=== PATIENT | male | born 1950 | race Caucasian/White ===

== ENCOUNTER → 2016-11-22 | Outpatient (CLI) | payer MEDICARE ==
[~2016-11-22] MED LIST: ACHD5005 PO; ALPR-557 GT; AMLO5TAB2 GT; ASP81TEC PO; ATR20T PO; CIPR-225 PO; CLOP75TA PO; FLEC100T PO; FRSM40T PO; GLIM4TAB PO; GLMP2T PO; KETO10TA PO; LEVO75TA6 PO; LEVO88TA54 PO; LOSA100T16 PO; LOSA1TAB19 PO; MAGN250T7 PO; METO25TA PO; MTP25TSR PO; MULT-608 PO; NAPR-248 PO; OMEP40CA36 PO; ONDA4TAB8 PO; ORPH100T PO; PANT20TA2 PO; POTA20PA3 PO; POTA99TA7 PO; POTASSIUM GLUCONATE 595 MG PO; PRD20T PO; SAXA5TAB PO; SITA100T PO; SPIR50TA2 PO; SUCR1TAB23 PO; TAMS0.4C98 PO; TRM50T PO; [UNRECOGNIZED DRUG - OTHER]
[2016-11-22 11:10] LABS: ALBUMIN 3.7 GM/DL (3.2-4.5); ANION GAP 12 MMOL/L (5-14); BLOOD UREA NITROGEN 14 MG/DL (7-18); BUN/CREATININE RATIO 14 (0-20); CALCIUM 9.7 MG/DL (8.5-10.1); CARBON DIOXIDE 22 MMOL/L (21-32); CHLORIDE 103 MMOL/L (98-107); CREATININE SERUM 1.03 MG/DL (0.60-1.30); GFR ESTIMATED > 60; GLUCOSE 320 MG/DL (70-105); PHOSPHORUS 2.5 MG/DL (2.3-4.7); POTASSIUM 4.3 MMOL/L (3.6-5.0); SODIUM 137 MMOL/L (135-145)
[2016-11-22 11:13] LABS: HEMOLYSIS 0 (0-29); LIPEMIA 0 (0-49)
== END ==
LOC: LAB 10:34
PROVIDERS: ATTEND Internal Medicine Cardiovascular Disease
DX: I10 Essential (primary) hypertension (principal)
CPT/HCPCS: 36415; 80069

== ENCOUNTER → 2017-01-31 | Outpatient (CLI) | payer MEDICARE ==
[2017-01-31 09:45] LABS: BASOPHILS % (AUTO) 0 % (0-10); EOSINOPHILS # (AUTO) 0.4 10^3/uL (0.0-0.3); EOSINOPHILS % (AUTO) 6 % (0-10); LYMPHOCYTES % (AUTO) 13 % (12-44); MEAN CORPUSCULAR HEMOGLOBIN 29 PG (25-34); MEAN CORPUSCULAR HGB CONC 32 G/DL (32-36); MEAN CORPUSCULAR VOLUME 90 FL (80-99); MEAN PLATELET VOLUME 9.9 FL (7.4-10.4); MONOCYTES # (AUTO) 0.6 X 10^3 (0.0-1.0); MONOCYTES % (AUTO) 8 % (0-12); NEUTROPHILS # (AUTO) 5.6 X 10^3 (1.8-7.8); NEUTROPHILS % (AUTO) 73 % (42-75); PLATELET COUNT 162 10^3/uL (130-400); RED BLOOD COUNT 4.13 10^6/uL (4.35-5.85); RED CELL DISTRIBUTION WIDTH 13.9 % (10.0-14.5); WHITE BLOOD COUNT 7.7 10^3/uL (4.3-11.0)
== END ==
LOC: LAB 09:11
PROVIDERS: ATTEND Podiatrist Foot & Ankle Surgery
DX: E11.9 Type 2 diabetes mellitus without complications (principal)
CPT/HCPCS: 36415; 83036; 85025

== ENCOUNTER → 2017-01-31 | Outpatient (CLI) | payer MEDICARE ==
[2017-01-31 12:21] LABS: ALANINE AMINOTRANSFERASE 40 U/L (0-55); ALBUMIN 3.8 GM/DL (3.2-4.5); ANION GAP 12 MMOL/L (5-14); ASPARTATE AMINO TRANSFERASE 34 U/L (5-34); BILIRUBIN,TOTAL 0.5 MG/DL (0.1-1.0); BLOOD UREA NITROGEN 19 MG/DL (7-18); BUN/CREATININE RATIO 18; CALCIUM 9.7 MG/DL (8.5-10.1); CARBON DIOXIDE 23 MMOL/L (21-32); CHLORIDE 102 MMOL/L (98-107); CREATININE SERUM 1.08 MG/DL (0.60-1.30); GFR ESTIMATED > 60; GLUCOSE 353 MG/DL (70-105); POTASSIUM 4.1 MMOL/L (3.6-5.0); SODIUM 137 MMOL/L (135-145); TOTAL PROTEIN 7.8 GM/DL (6.4-8.2)
== END ==
LOC: LABNPT 11:59
PROVIDERS: ATTEND Family Medicine
DX: E11.65 Type 2 diabetes mellitus with hyperglycemia (principal); E78.2 Mixed hyperlipidemia; I10 Essential (primary) hypertension
CPT/HCPCS: 80053

== ENCOUNTER 2017-04-04 19:37 | Emergency (ER) | payer MEDICARE ==
[~2017-04-04] VITALS: Ht 172.7 cm; Wt 134.0 kg
--- OUTSIDE RECORDS SUMMARY | 2017-04-04 19:43 | XMS REPORT ---
Author Author CONNOR BARTHOLOMEW Organization [facility] Address [address] [place] [address] Care Team Providers Care Dynamic Balancer Name Role Phone CONNOR BARTHOLOMEW Unavailable PROBLEMS Unknown Problems ALLERGIES Substance Reaction Event Type Date Status SulfADIAZINE nausea Drug Allergy Jun, Active Codeine Sulfate nausea Drug Allergy Jun, Active SOCIAL HISTORY No smoking Hx information available PLAN OF CARE Activity Details Follow Up prn Reason: VITAL SIGNS Height 68 in 2016-06-17 Weight 300.6 lbs 2016-06-17 Temperature 98.3 degrees Fahrenheit 2016-06-17 Heart Rate 84 bpm 2016-06-17 Respiratory Rate 20 2016-06-17 BMI 45.70 kg/m2 2016-06-17 Blood pressure systolic 130 mmHg 2016-06-17 Blood pressure diastolic 78 mmHg 2016-06-17 MEDICATIONS Medication Instructions Dosage Frequency Start Date End Date Duration Status Spironolactone 50 MG Orally Once a day 1 tablet 24h Active Losartan Potassium-HCTZ 100-12.5 MG Orally Once a day 1 tablet 24h Active Glimepiride 4 MG Orally Once a day 1 tablet with breakfast or the first main meal of the day 24h Active Multivitamin Men - Active Furosemide 40 MG Orally Once a day 1 tablet 24h Active Baby Aspirin 81 MG Orally Once a day 1 tablet 24h Active Omeprazole 40 MG Orally Once a day 1 capsule 24h Active Lipitor 20 MG Orally Once a day 1 tablet 24h Active Flecainide Acetate 100 MG Active Levothyroxine Sodium 75 MCG Orally Once a day 1 tablet on an empty stomach in the morning 24h Active Azithromycin 250 MG Orally Once a day 2 tablets on the first day, then 1 tablet daily for 4 days 24h Jun, Jun, 5 day(s) Active PredniSONE 10 mg Orally Once a day 1 tablet 24h Jun, Jun, 05 days Active RESULTS No Results PROCEDURES Procedure Date Ordered Related Diagnosis Body Site [facility] VISIT NEW PATIENT Jun 17, 2016 Office Visit, New Pt., Level 3 Jun 17, 2016 IMMUNIZATIONS No Known Immunizations
--- OUTSIDE RECORDS SUMMARY | 2017-04-04 19:44 | XMS REPORT ---
Author Author DOMINICK ARREGUIN Organization [facility] Address [address] [place] [address] Care Team Providers Care Crewman Main Battle [employer] Name Role Phone DOMINICK ARREGUIN Unavailable PROBLEMS Unknown Problems ALLERGIES Substance Reaction Event Type Date Status SulfADIAZINE nausea Drug Allergy Jun, Active Codeine Sulfate nausea Drug Allergy Jun, Active SOCIAL HISTORY No smoking Hx information available PLAN OF CARE Activity Details Follow Up prn Reason: VITAL SIGNS Height 68 in 2016-07-01 Weight 297 lbs 2016-07-01 Temperature 98.4 degrees Fahrenheit 2016-07-01 Heart Rate 78 bpm 2016-07-01 Respiratory Rate 18 2016-07-01 BMI 45.15 kg/m2 2016-07-01 Blood pressure systolic 118 mmHg 2016-07-01 Blood pressure diastolic 74 mmHg 2016-07-01 MEDICATIONS Medication Instructions Dosage Frequency Start Date End Date Duration Status Lipitor 20 MG Orally Once a day 1 tablet 24h Active Flecainide Acetate 100 MG Active Clindamycin HCl 150 MG Orally every 6 hrs 2 capsules 6h Jun, Jun, 10 days Active Glimepiride 4 MG Orally Once a day 1 tablet with breakfast or the first main meal of the day 24h Active Spironolactone 50 MG Orally Once a day 1 tablet 24h Active Furosemide 40 MG Orally Once a day 1 tablet 24h Active Omeprazole 40 MG Orally Once a day 1 capsule 24h Active Multivitamin Men - Active Baby Aspirin 81 MG Orally Once a day 1 tablet 24h Active Levothyroxine Sodium 75 MCG Orally Once a day 1 tablet on an empty stomach in the morning 24h Active Losartan Potassium-HCTZ 100-12.5 MG Orally Once a day 1 tablet 24h Active RESULTS No Results PROCEDURES Procedure Date Ordered Related Diagnosis Body Site [facility] VISIT ESTABLISHED PATIENT Jul 01, 2016 Office Visit, Est Pt., Level 3 Jul 01, 2016 IMMUNIZATIONS No Known Immunizations
--- OUTSIDE RECORDS SUMMARY | 2017-04-04 19:44 | XMS REPORT ---
Author Author DOMINICK ARREGUIN Organization [facility] Address [address] [place] [address] Care Team Providers Care Corporate Quality Engineer Name Role Phone DOMINICK ARREGUIN Unavailable PROBLEMS Unknown Problems ALLERGIES Substance Reaction Event Type Date Status SulfADIAZINE nausea Drug Allergy Jun, Active Codeine Sulfate nausea Drug Allergy Jun, Active SOCIAL HISTORY No smoking Hx information available PLAN OF CARE Activity Details Follow Up prn Reason: VITAL SIGNS Height 68 in 2016-06-22 Weight 298.6 lbs 2016-06-22 Temperature 98.2 degrees Fahrenheit 2016-06-22 Heart Rate 84 bpm 2016-06-22 Respiratory Rate 20 2016-06-22 Oximetry on room air:98 % 2016-06-22 BMI 45.40 kg/m2 2016-06-22 Blood pressure systolic 136 mmHg 2016-06-22 Blood pressure diastolic 82 mmHg 2016-06-22 MEDICATIONS Medication Instructions Dosage Frequency Start Date End Date Duration Status Flecainide Acetate 100 MG Active Furosemide 40 MG Orally Once a day 1 tablet 24h Active Lipitor 20 MG Orally Once a day 1 tablet 24h Active Levothyroxine Sodium 75 MCG Orally Once a day 1 tablet on an empty stomach in the morning 24h Active Losartan Potassium-HCTZ 100-12.5 MG Orally Once a day 1 tablet 24h Active Spironolactone 50 MG Orally Once a day 1 tablet 24h Active Baby Aspirin 81 MG Orally Once a day 1 tablet 24h Active Glimepiride 4 MG Orally Once a day 1 tablet with breakfast or the first main meal of the day 24h Active Multivitamin Men - Active Omeprazole 40 MG Orally Once a day 1 capsule 24h Active RESULTS No Results PROCEDURES Procedure Date Ordered Related Diagnosis Body Site MEASURE BLOOD OXYGEN LEVEL Jun 22, 2016 [facility] VISIT ESTABLISHED PATIENT Jun 22, 2016 Office Visit, Est Pt., Level 3 Jun 22, 2016 IMMUNIZATIONS No Known Immunizations
--- NOTE | 2017-04-04 20:59 | Diagnostic Imaging Report ---
INDICATION: Patient fell last night. Now having medial knee pain. EXAMINATION: Right knee, 04/04/2017. FINDINGS: Three views of the knee. There is medial compartment narrowing and spurring with associated likely superimposed loose body. Minimal chondrocalcinosis in the lateral joint compartment is also seen. There is narrowing and spurring at the patellofemoral joint. No significant effusion is seen. No acute fracture is visualized. 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 No fracture is visualized. Dictated by: Dictated on workstation # [id number]
--- NOTE | 2017-04-04 21:00 | Diagnostic Imaging Report ---
INDICATION: Fell last night. Having pain. EXAMINATION: Right shoulder, 04/04/2017. COMPARISON: None. FINDINGS: Three views of the right shoulder. There is acromioclavicular arthritic change with narrowing and spurring present. Densities adjacent to the greater tuberosity could represent a small loose body versus calcific tendinitis. Adjacent chondrocalcinosis is also possible, more medially. No acute fracture. IMPRESSION: Chronic change, as described, with no acute process noted. Dictated by: Dictated on workstation # [id number]
--- NOTE | 2017-04-04 21:24 | ED Trauma-Multisystem ---
General Chief Complaint: Trauma-Non Activation Stated Complaint: PT FELL,RT SHOULDER PAIN,RT KNEE PAIN Nursing Triage Note: patient reports tripping over a curb last evening. patient c/o R shoulder and R knee. patient's reports patient hitting head. patient denies hitting head or LOC. patient denies other pain History of Present Illness Time Seen by Provider: 20:30 Initial Comments Patient reports tripping over a curb last evening. He complains mainly of right shoulder and right knee pain he has a superficial abrasion to the right anterior knee. He denies hitting his head or loss of consciousness. His thought he hit his head on the ground, but the patient reports that it was his shoulder. He is right-hand dominant. He denies any previous histories of injuries to his right shoulder or knee. He has arthritis in multiple joints. He is on hydrocodone managed by the pain specialist at [address] for back pain. He is planning to be seen tomorrow and get a refill of his pain medicine. Occurred: Yesterday Pain/Injury Location: Lower Extremity (right knee), Upper Extremity (right shoulder) Modifying Factors: Rest Associated Symptoms (Fall): Denies Symptoms Allergies and Home Medications Allergies Coded Allergies: Sulfa (Sulfonamide Antibiotics) (Unverified Allergy, Unknown, N/V, 10/01/13 ) codeine (Unverified Allergy, Unknown, N/V ABD PAIN, 10/01/13) Home Medications Amlodipine Besylate 5 Mg Tab, Unknown Dose GT DAILY, (Reported) Aspirin 81 Mg Tabec, 81 MG PO DAILY, (Reported) Atorvastatin 20 Mg Tablet, 20 MG PO HS, (Reported) Ciprofloxacin HCl 500 Mg Tablet, 500 MG PO BID, #20 Prescribed by: NORRIS ALBERTO on 08/31/15 0004 Flecainide Acetate 100 Mg Tablet, 1 TAB PO BID, #60 (Reported) Furosemide 40 Mg Tab, 1 EACH PO EVERY OTHER DAY, (Reported) Glimepiride 4 Mg Tablet, 4 MG PO BID, (Reported) Hydrocodone Bit/Acetaminophen 1 Each Tablet, 1-2 TAB PO Q6H PRN, (Reported) 5-325 MG TABLET PRN PAIN Levothyroxine Sodium 88 Mcg Tablet, 88 MCG PO DAILY, (Reported) Losartan/Hydrochlorothiazide 1 Each Tablet, 1 EACH PO DAILY, (Reported) Multivitamins 1 Tab Tablet, 1 TAB PO DAILY, (Reported) Omeprazole 40 Mg Capsule.dr, 40 MG PO BID, (Reported) Spironolactone 50 Mg Tablet, 1 TAB PO EVERY OTHER DAY, #30 (Reported) Constitutional: no symptoms reported, see HPI Musculoskeletal: see HPI, back pain (prior to injury, no acute flareup), joint pain (right shoulder and right knee), No joint swelling, muscle pain, No neck pain Skin: see HPI, lesions (abrasion anterior right knee) All Other Systems Reviewed Negative Unless Noted: Yes Past Usatrsp-Fjccho-Nfzafy Hx Patient Social History Alcohol Use: Denies Use Recreational Drug Use: No Smoking Status: Never a Smoker Recent Foreign Travel: No Contact w/Someone Who Travel: No Recent Infectious Disease Expo: No Physical Abuse: No Sexual Abuse: No Immunizations Up To Date Tetanus Booster (TDap): More than 5yrs Date of Influenza Vaccine: Feb 18, 2014 Surgeries History of Surgeries: Yes (TRAUMA TO RT WRIST, BILAT KNEE SCOPE, TRAUMA LT ELBOW, colon resection) Surgeries: Appendectomy, Gallbladder Respiratory History of Respiratory Disorde: No Cardiovascular History of Cardiac Disorders: Yes (HEART CATH WITH STENTS) Cardiac Disorders: High Cholesterol, Hypertension Neurological History of Neurological Disord: No Reproductive System Hx Reproductive Disorders: No Genitourinary Genitourinary Disorders: Kidney Stones Gastrointestinal History of Gastrointestinal Di: Yes (COLON CA) Gastrointestinal Disorders: Gastroesophageal Reflux, Hemorrhoids, Ulcer Musculoskeletal History of Musculoskeletal Dis: No Musculoskeletal Disorders: Degenerate Disk Disease, Chronic Back Pain Endocrine History of Endocrine Disorders: Yes Endocrine Disorders: Hypothyroidsim, Diabetes, Non-Insulin dep Cancer History of Cancer: Yes Cancer: Colon Psychosocial History of Psychiatric Problem: Yes Behavioral Health Disorders: Anxiety Suicide Risk Score: 0 Integumentary History of Skin or Integumenta: Yes (MRSA RIGHT LEG 2002) Blood Transfusions History of Blood Disorders: No Adverse Reaction to a Blood Tr: No Reviewed Nursing Assessment Reviewed/Agree w Nursing PMH: Yes Family Medical History Significant Family History: No Pertinent Family Hx Physical Exam Vital Signs Vital Sign - Last 12Hours 04/04/17 20:08 Temp 98.9 Pulse 84 Resp 18 B/P (MAP) 168/86 Pulse Ox 97 Temperature (Fahrenheit): 98.9 General Appearance: No Apparent Distress, WD/WN Head: Lacerations (superficial abrasion anterior right knee) Eyes: Bilateral Eye Normal Inspection, Bilateral Eye PERRL, Bilateral Eye EOMI Ears, Nose, Throat: Hearing Grossly Normal, No Evidence of ENT Injury, No Dental Injury Neck: Full Range of Motion, Normal Inspection, Non Tender Cardiovascular: Regular Rate, Rhythm, Normal Peripheral Pulses Respiratory: Chest Non Tender, Lungs Clear, Normal Breath Sounds Gastrointestinal: Normal Bowel Sounds, No Organomegaly, No Pulsatile Mass, Non Tender, Soft Back: Normal Inspection, No CVA Tenderness, No Vertebral Tenderness Extremity: Other (right shoulder extremely painful with any attempted active or passive range of motion. Significant limitation of motion, secondary to pain. Neurovascular status intact right upper extremity symmetric with the left. Negative Jimbo sign. 4-/5 with triceps, biceps, and external rotators strength testing right shoulder. Right knee trace limitation of motion secondary pain. No gross instability noted no joint effusion present. Superficial abrasion anterior right knee with no active drainage.) Neurologic/Psychiatric: Alert, Oriented x3, No Motor/Sensory Deficits, Normal Mood/Affect Skin: Normal Color, Warm/Dry [place] Coma Score Best Eye Response (Magdi): (4) Open Spontaneously Best Verbal Response ([place]): (5) Oriented Best Motor Response ([place]): (6) Obeys Commands [place] Total: 15 Progress/Results/Core Measures Results/Orders My Orders Orders - AGATA RUFFIN Shoulder, Right, 3 Views (04/04/17 20:29) Knee, Right, 3 Views (04/04/17 20:29) Hydrocodone/Apap 7.5/325 Tab (Lortab 7. (04/04/17 21:44) Dipht,Pertuss(Acell),Tet Adult (Boostrix (04/04/17 21:45) Vital Signs/I&O Vital Sign - Last 12Hours 04/04/17 04/04/17 20:08 22:04 Temp 98.9 Pulse 84 98 Resp 18 18 B/P (MAP) 168/86 Pulse Ox 97 99 Blood Pressure Mean: 113 Progress Note : Time: 20:30 Progress Note Initial evaluation completed, will obtain x-rays of the right shoulder and right knee. The abrasion to the right knee was cleaned with sterile saline, triple antibiotic ointment and Band-Aid were applied. The patient is unsure of his last tetanus shot but believes it's been at least 20 years. We will give a booster shot today. 2049 discussed results of x-rays with the patient and his , no fractures or dislocations were noted. He has significant arthritis in the right knee. Recommended a sling for comfort for the right shoulder. This stressed the importance of removing several times a day for gentle range of motion to the right shoulder. Discussed importance of follow-up with his primary care provider and referral to orthopedics if the shoulder or knee continued to be symptomatic. Diagnostic Imaging Diagonstic Imaging: Xray Plain Films/CT/US/NM/MRI: knee Comments NAME: JENNIFER ORTEGA [facility] REC#: [id number] PT STATUS: REG ER : 1950 PHYSICIAN: AGATA RUFFIN ADMIT DATE: 04/04/17/ER Draft Date of Exam:04/04/17 KNEE, RIGHT, 3 VIEWS INDICATION: Patient fell last night. Now having medial knee pain. EXAMINATION: Right knee, 04/04/2017. FINDINGS: Three views of the knee. There is medial compartment narrowing and spurring with associated likely superimposed loose body. Minimal chondrocalcinosis in the lateral joint compartment is also seen. There is narrowing and spurring at the patellofemoral joint. No significant effusion is seen. No acute fracture is visualized. 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 No fracture is visualized. Dictated on workstation # [id number] Dict: 04/04/172052 Trans: 04/04/172057 [facility] [id number] Interpreted by: PEDRITO HORTON MD Electronically signed by: Reviewed: Reviewed by Me Diagonstic Imaging: Xray Plain Films/CT/US/NM/MRI: other (shoulder) Comments NAME: JENNIFER ORTEGA [facility] REC#: [id number] PT STATUS: REG ER : 1950 PHYSICIAN: AGATA RUFFIN ADMIT DATE: 04/04/17/ER Draft Date of Exam:04/04/17 SHOULDER, RIGHT, 3 VIEWS INDICATION: Fell last night. Having pain. EXAMINATION: Right shoulder, 04/04/2017. COMPARISON: None. FINDINGS: Three views of the right shoulder. There is acromioclavicular arthritic change with narrowing and spurring present. Densities adjacent to the greater tuberosity could represent a small loose body versus calcific tendinitis. Adjacent chondrocalcinosis is also possible, more medially. No acute fracture. IMPRESSION: Chronic change, as described, with no acute process noted. Dictated on workstation # [id number] Dict: 04/04/172053 Trans: 04/04/172099 [facility] [id number] Interpreted by: PEDRITO HORTON MD Electronically signed by: Departure Impression Impression: Primary Impression: Abrasion, right knee, initial encounter Additional Impressions: Contusion of right shoulder Qualified Codes: S40.011A - Contusion of right shoulder, initial encounter Contusion of right knee, initial encounter Disposition: 01 HOME, SELF-CARE Condition: Stable Departure-Patient Inst. Decision time for Depature: 21:30 Referrals: CINDY CHAVIRA DO (PCP/Family) Primary Care Physician Patient Instructions: Contusion (DC), How to Use a Shoulder Sling Add. Discharge Instructions: Sling for comfort to right arm. Removed several times a day to do gentle range of motion exercises to the right shoulder. Keep wounds to legs cleaned with peroxide and applied Band-Aids with triple antibiotic ointment, 2-3 times daily. Ibuprofen 600 mg every 8 hours as needed for pain. Ice to right knee and right shoulder 20 minutes every 2 hours. Follow-up with primary care provider in 3-5 days if symptoms are not improving. Return to emergency department for new problems or injuries. All discharge instructions reviewed with patient and/or family. Voiced understanding. Copy Copies To 1: CINDY CHAVIRA AMY ARNP Apr 04, 2017 21:24
[2017-04-04] MEDS ORDERED: HYDROcodone/APAP 7.5 MG/325 MG (LORTAB, LORCET PLUS) TABLET PO STA (21:44)
[2017-04-04] MEDS ORDERED: TETANUS,DIPTH,PERTUSS P/F (BOOSTRIX) 0.5 ML VIAL IM STA (21:45)
[2017-04-04 22:04] VITALS: BP 175/85
== END 2017-04-04 22:04 | disposition home or self-care (01) ==
LOC: EDUNIT# 19:37 → ER 19:39
DX: S40.011A Contusion of right shoulder, initial encounter (principal); S80.01XA Contusion of right knee, initial encounter; E78.00 Pure hypercholesterolemia, unspecified; F41.9 Anxiety disorder, unspecified; E11.9 Type 2 diabetes mellitus without complications; E03.9 Hypothyroidism, unspecified; I10 Essential (primary) hypertension; K21.9 Gastro-esophageal reflux disease without esophagitis; Z85.038 Personal history of other malignant neoplasm of large intestine; Z87.19 Personal history of other diseases of the digestive system; Z23 Encounter for immunization; Z86.14 Personal history of Methicillin resistant Staphylococcus aureus infection; Z90.49 Acquired absence of other specified parts of digestive tract; Z79.82 Long term (current) use of aspirin; Z79.84 Long term (current) use of oral hypoglycemic drugs; W22.09XA Striking against other stationary object, initial encounter
CPT/HCPCS: 73030; 73562; 90471; 90715; 99283

== ENCOUNTER → 2017-08-07 | Outpatient (CLI) | payer MEDICARE ==
[~2017-08-07] MED LIST changes: -LOSA1TAB19 PO; +LOSA1TAB26 PO
[2017-08-07 09:41] LABS: BASOPHILS % (AUTO) 0 % (0-10); EOSINOPHILS # (AUTO) 0.4 10^3/uL (0.0-0.3); EOSINOPHILS % (AUTO) 5 % (0-10); HEMATOCRIT 35 % (40-54); HEMOGLOBIN 11.3 G/DL (13.3-17.7); LYMPHOCYTES % (AUTO) 12 % (12-44); MEAN CORPUSCULAR HEMOGLOBIN 30 PG (25-34); MEAN CORPUSCULAR HGB CONC 33 G/DL (32-36); MEAN CORPUSCULAR VOLUME 92 FL (80-99); MEAN PLATELET VOLUME 9.6 FL (7.4-10.4); MONOCYTES # (AUTO) 0.5 X 10^3 (0.0-1.0); MONOCYTES % (AUTO) 6 % (0-12); NEUTROPHILS # (AUTO) 6.3 X 10^3 (1.8-7.8); NEUTROPHILS % (AUTO) 77 % (42-75); PLATELET COUNT 198 10^3/uL (130-400); RED BLOOD COUNT 3.79 10^6/uL (4.35-5.85); RED CELL DISTRIBUTION WIDTH 14.5 % (10.0-14.5); WHITE BLOOD COUNT 8.2 10^3/uL (4.3-11.0)
[2017-08-07 10:02] LABS: ALANINE AMINOTRANSFERASE 34 U/L (0-55); ALBUMIN 3.9 GM/DL (3.2-4.5); ALKALINE PHOSPHATASE 73 U/L (40-136); BILIRUBIN,TOTAL 0.7 MG/DL (0.1-1.0); BUN/CREATININE RATIO 16; CALCIUM 9.6 MG/DL (8.5-10.1); CARBON DIOXIDE 26 MMOL/L (21-32); CHLORIDE 104 MMOL/L (98-107); CHOLESTEROL 115 MG/DL (< 200); CREATININE SERUM 1.04 MG/DL (0.60-1.30); GFR ESTIMATED > 60; GLUCOSE 207 MG/DL (70-105); HDL CHOLESTEROL 32 MG/DL (40-60); POTASSIUM 4.2 MMOL/L (3.6-5.0); SODIUM 140 MMOL/L (135-145); TOTAL PROTEIN 7.9 GM/DL (6.4-8.2); TRIGLYCERIDES 107 MG/DL (<150); VLDL CHOLESTEROL 21 MG/DL (5-40)
== END ==
LOC: LAB 09:21
PROVIDERS: ATTEND Family Medicine
DX: E03.9 Hypothyroidism, unspecified (principal); E11.65 Type 2 diabetes mellitus with hyperglycemia; E78.2 Mixed hyperlipidemia; I10 Essential (primary) hypertension
CPT/HCPCS: 36415; 80053; 80061; 83036; 84436; 84443; 85025

== ENCOUNTER 2017-08-16 09:15 | Outpatient (CLI) | payer MEDICARE ==
[~2017-08-16] VITALS: Ht 172.7 cm; Wt 130.9 kg
[~2017-08-16 09:15] MED LIST changes: +AMLO5TAB2 PO; +ASPI-999 PO; +ATOR20TA66 PO; +FURO40TA4 PO; +GABA600T2 PO; +METF1000 PO; +MULT1TAB69 PO
== END 2017-08-16 10:05 ==
LOC: PREOP 09:15
PROVIDERS: ATTEND Surgery
DX: Z01.818 Encounter for other preprocedural examination (principal); Z85.038 Personal history of other malignant neoplasm of large intestine

== ENCOUNTER 2017-08-20 06:36 | Day surgery (SDC) | payer MEDICARE ==
[~2017-08-20] VITALS: Ht 172.7 cm; Wt 130.9 kg
[2017-08-20] MEDS ORDERED: NS IV 500 ML 500 ML ONE (07:17)
[2017-08-20] MEDS ORDERED: NS IV 500 ML 500 ML IV PRN (07:36)
[2017-08-20 07:40] VITALS: BP 163/70
[2017-08-20] MEDS ORDERED: MIDAZOLAM 2 MG/2 ML (VERSED) VIAL ONE ×3 (07:47)
[2017-08-20] MEDS ORDERED: fentaNYL INJECTION 100 MCG/2 ML AMP ONE (07:48)
[2017-08-20] MEDS: fentaNYL INJECTION 100 MCG/2 ML AMP IVP PRN ×2 (09:07→09:17)
[2017-08-20] MEDS: MIDAZOLAM 2 MG/2 ML (VERSED) VIAL IVP PRN ×3 (09:09→09:22)
--- NOTE | 2017-08-20 09:10 | History & Physicial ---
History of Present Illness History of Present Illness Reason for visit/HPI To undergo surveillance colonoscopy. 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 Negative colonoscopies until 5 years ago Date of Admission 08/20/17 Date Seen by Provider: Aug 20, 2017 Time Seen by Provider: 09:08 I consulted on this patient on 08/20/17 09:07 Attending Physician Jennifer Schmidt MD Admitting Physician Julia Nolan DO Consult Allergies and Home Medications Allergies Coded Allergies: Sulfa (Sulfonamide Antibiotics) (Unverified Allergy, Unknown, N/V, 08/16/17) codeine (Unverified Allergy, Unknown, N/V ABD PAIN, 08/16/17) Home Medications Amlodipine Besylate 5 Mg Tablet, 5 MG PO DAILY, (Reported) Aspirin 81 Mg Tab.chew, 81 MG PO DAILY, (Reported) Atorvastatin Calcium 20 Mg Tablet, 20 MG PO HS, (Reported) Flecainide Acetate 100 Mg Tablet, 1 TAB PO BID, (Reported) Furosemide 40 Mg Tablet, 40 MG PO PRN, (Reported) Gabapentin 600 Mg Tablet, 600 MG PO PRN, (Reported) Levothyroxine Sodium 88 Mcg Tablet, 88 MCG PO DAILY, (Reported) Losartan/Hydrochlorothiazide 1 Each Tablet, 1 EACH PO DAILY, (Reported) Metformin HCl 1,000 Mg Tablet, 1,000 MG PO BID, (Reported) Multivitamin 1 Each Tablet, 1 EACH PO DAILY, (Reported) Omeprazole 40 Mg Capsule.dr, 40 MG PO BID, (Reported) Spironolactone 50 Mg Tablet, 50 MG PO PRN, (Reported) Patient Home Medication List Home Medication List Reviewed: Yes Past Kwcwfgw-Eehlsl-Ammsqs Hx Patient Social History Marrital Status: , Employed/Student: retired Alcohol Use: Denies Use Recreational Drug Use: No Smoking Status: Never a Smoker Recent Foreign Travel: No Contact w/other who traveled: No Recent Hopitalizations: No Immunizations Up To Date Tetanus Booster (TDap): More than 5yrs Date of Pneumonia Vaccine: Mar 26, 2017 Date of Influenza Vaccine: Mar 26, 2017 Seasonal Allergies Seasonal Allergies: No Surgeries Yes (TRAUMA TO RT WRIST, BILAT KNEE SCOPE, TRAUMA LT ELBOW, colon resection) Appendectomy, Gallbladder Respiratory No Cardiovascular Yes (HEART CATH WITH STENTS) Coronary Artery Disease, High Cholesterol, Hypertension Neurological No Reproductive System Hx Reproductive Disorders: No Sexually Transmitted Disease: No HIV/AIDS: No Genitourinary Kidney Stones Gastrointestinal Yes (COLON CA) Hemorrhoids, Ulcer Musculoskeletal No Degenerate Disk Disease, Arthritis, Chronic Back Pain Endocrine History of Endocrine Disorders: Yes Endocrine Disorders: Hypothyroidsim, Diabetes, Non-Insulin dep HEENT Loss of Vision: Bilateral Hearing Impairment: Denies Cancer Yes Colon Did You Recieve Any Treatments: Yes Type of Treatment: Chemotherapy, Surgical Intervention Psychosocial History of Psychiatric Problem: Yes Behavioral Health Disorders: Anxiety Integumentary History of Skin or Integumenta: Yes (MRSA RIGHT LEG 2002) Blood Transfusions History of Blood Disorders: No Adverse Reaction to a Blood Tr: No (N/A) Family Medical History Significant Family History: No Pertinent Family Hx Constitutional: no symptoms reported EENTM: no symptoms reported Respiratory: no symptoms reported Cardiovascular: no symptoms reported Gastrointestinal: no symptoms reported Genitourinary: no symptoms reported Musculoskeletal: no symptoms reported Skin: no symptoms reported Psychiatric/Neurological: No Symptoms Reported Physical Exam Vital Signs Vital Signs - First Documented 08/20/17 07:40 Temp 97.8 Pulse 75 Resp 18 B/P (MAP) 163/70 (101) Pulse Ox 96 O2 Delivery Room Air Capillary Refill : General Appearance: No Apparent Distress Neck: Normal Inspection Respiratory: Lungs Clear Cardiovascular: Regular Rate, Rhythm Gastrointestinal: Non Tender, Soft, Other Back: Normal Inspection Extremity: Normal Inspection Neurologic/Psychiatric: Alert, Oriented x3 Skin: Warm/Dry Comments long midline scar without any incisional hernia Assessment/Plan Assessment and Plan gentleman with a previous history of colonic carcinoma. For surveillance colonoscopy Problems: Admission Diagnosis Admission Status: Other (Outpt Proc) JENNIFER SCHMIDT MD Aug 20, 2017 9:10 am
--- NOTE | 2017-08-20 09:10 | Conscious Sedation/ASA ---
Conscious Sedation Pre-Proced Time Reviewed: 09:10 ASA Class: 2 Airway Mallampati Classification: (kalispel appropriate class) I. II. III, IV Lungs Heart ASA score ASA 1: a normal healthy patient ASA 2: a patient with a mild systemic disease (mid diabetes, controlled hypertension, obesity ASA 3: a patient with a severe systemic disease that limits activity (angina , COPD, prior Myocardial infarction) ASA 4: a patient with an incapacitating disease that is a constant threat to life (CHF, renal failure) ASA 5: a moribund patient not expected to survive 24 hrs. (ruptured aneurysm) ASA 6: a declared brain patient whose organs are being harvested. For emergent operations, add the letter E after the classification Grade 2 Sedation Plan: Discussed options with patient/fam Note The patient is an appropriate candidate to undergo the planned procedure, sedation, and anesthesia. The patient immediately re-assessed prior to indication. JENNIFER COLE MD Aug 20, 2017 9:10 am
--- NOTE | 2017-08-20 09:34 | Endo Procedure Record ---
Endo Procedure Report Date of Procedure Last Colonoscopy: Yes (2012) Aug 20, 2017 Surgeon (s) JENNIFER COLE MD Post Procedure/Op Diagnosis 4 mm sessile polyp at the cecum Procedure Performed Colonoscopy to cecum Snare polypectomy Description of Procedure Anesthesia Type: Conscious Sedation Specimen(s) collected/removed cecal polyp Description of the Procedure Indication for the procedure: This gentleman came in for surveillance colonoscopy. He had undergone sigmoid resection to manage a carcinoma, about 15 years ago. Informed consent was obtained after reviewing the procedure in detail. Description of the procedure: He was placed in left lateral decubitus position and his vital signs were monitored. Conscious sedation was achieved using Versed and fentanyl. Digital rectal examination was unremarkable. The colonoscope was then introduced into the rectum and advanced all the way up to the cecum The quality of bowel preparation was excellent. The scope was then withdrawn slowly and the mucosa examined in a systematic fashion. Findin mm, sessile polyp at the cecum, that was snared and retrieve using a [place] net collection device. He tolerated the procedure well and was taken back to the nursing area in a stable condition. Impression: Previous history of sigmoid carcinoma. Sessile cecal polyp excised. Recommend repeating in 1 year. Copies To: CINDY CHAVIRA XAVIER M MD Aug 20, 2017 9:34 am
--- NOTE | 2017-08-20 09:35 | Discharge Inst-Simple/Standard ---
Discharge Inst-Standard Discharge Medications New, Converted or Re-Newed RX: Other Patient Instructions/Follow Up Plan of Care/Instructions/FU: Repeat colonoscopy in one year Activity as Tolerated: Yes Discharge Diet: No Restrictions JENNIFER COLE MD Aug 20, 2017 9:35 am
[2017-08-20 09:40] VITALS: BP 163/70
[2017-08-20 10:10] VITALS: BP 161/81
[2017-08-20 10:20] VITALS: BP 161/81
--- OUTSIDE RECORDS SUMMARY | 2017-08-20 10:52 | XMS REPORT | Continuity of Care Document ---
Author Author [facility] Organization [facility] Address Unknown Phone Unavailable Allergies Active Description Code Type Severity Reaction Onset Reported/Identified Relationship to Patient Clinical Status Yes codeine [id number] Drug Allergy Unknown N/V ABD PAIN 10/01/2013 Yes Sulfa (Sulfonamide Antibiotics) [id number] Drug Allergy Unknown N/V 2013 Medications There is no data. Problems Date Dx Coded Attending Type Code Diagnosis Diagnosed By 08/31/2014 DOUGLAS HART, JENNIFER Tavarez Ot 250.00 DIAB ROSARIO WO COMPL, TYPE II OR UNSPEC TY 08/31/2014 JENNIFER COLE MD Ot 427.31 ATRIAL FIBRILLATION 08/31/2014 JENNIFER COLE MD Ot 530.10 ESOPHAGITIS NOS 08/31/2014 JENNIFER COLE MD Ot 535.40 OTH SPECIFIED GASTRITIS,W/O MENTION OF H 08/31/2014 JENNIFER COLE MD Ot V10.05 HX OF COLONIC MALIGNANCY 09/01/2014 LAKIA MONTANA Ot 272.4 09/01/2014 LAKIA MONTANA Ot 401.9 09/01/2014 LAKIA MONTANA Ot 414.00 09/01/2014 LAKIA MONTANA Ot 426.4 09/01/2014 LAKIA MONTANA Ot 427.31 09/01/2014 LAKIA MONTANA Ot 782.3 11/09/2014 MILLY TYLER MD Ot 721.3 LUMBOSACRAL SPONDYLOSIS 11/09/2014 MILLY TYLER MD Ot 722.52 LUMB/LUMBOSAC DISC DEGEN 11/23/2014 JENNIFER COLE MD Ot 535.50 UNSP GASTRITIS GASTRODUODENITIS W/O ME 08/31/2015 NORRIS ALBERTO DO Ot E11.9 TYPE 2 DIABETES MELLITUS WITHOUT COMPLIC 08/31/2015 REMY DO, NORRIS K Ot I10 ESSENTIAL (PRIMARY) HYPERTENSION 08/31/2015 REMY DO, NORRIS K Ot N20.2 CALCULUS OF KIDNEY WITH CALCULUS OF URET 08/31/2015 REMY DO, NORRIS K Ot Z90.49 ACQUIRED ABSENCE OF OTHER SPECIFIED PART 08/31/2015 ANTOINE PA, LAKIA K Ot 272.4 08/31/2015 ANTOINE PA, LAKIA K Ot 401.9 08/31/2015 ANTOINE PA, LAKIA K Ot 414.00 08/31/2015 ANTOINE PA, LAKIA K Ot 426.4 08/31/2015 ANTOINE PA, LAKIA K Ot 427.31 08/31/2015 ANTOINE PA, LAKIA K Ot 782.3 08/31/2015 DOUGLAS HART, JENNIFER Tavarez Ot V72.84 08/31/2015 RAUL HART, ANDERSON Bustillo Ot 427.31 08/31/2015 REMY DO, NORRIS K Ot E11.9 08/31/2015 REMY DO, NORRIS K Ot I10 08/31/2015 REMY DO, NORRIS K Ot N20.2 08/31/2015 REMY DO, NORRIS K Ot Z90.49 09/18/2015 REMY DO, NORRIS K Ot E11.9 09/18/2015 REMY DO, NORRIS K Ot I10 09/18/2015 REMY DO, NORRIS K Ot N20.2 09/18/2015 REMY DO, NORRIS K Ot Z90.49 12/22/2015 DOUGLAS HART, JENNIFER Tavarez Ot K21.9 GASTRO-ESOPHAGEAL REFLUX DISEASE WITHOUT 12/22/2015 DOUGLAS HART, JENNIFER Tavarez Ot Z01.818 ENCOUNTER FOR OTHER PREPROCEDURAL EXAMIN 12/23/2015 DOUGLAS HART, JENNIFER Tavarez Ot K21.9 GASTRO-ESOPHAGEAL REFLUX DISEASE WITHOUT 12/23/2015 DOUGLAS HART, JENNIFER Tavarez Ot Z01.818 ENCOUNTER FOR OTHER PREPROCEDURAL EXAMIN 12/27/2015 DOUGLAS HART, JENNIFER Tavarez Ot K29.70 GASTRITIS, UNSPECIFIED, WITHOUT BLEEDING 12/27/2015 DOUGLAS HART, JENNIFER Tavraez Ot Z09 ENCNTR FOR F/U EXAM AFT TRTMT FOR COND O 12/28/2015 DOUGLAS HART, JENNIFER Tavarez Ot K29.70 GASTRITIS, UNSPECIFIED, WITHOUT BLEEDING 12/28/2015 DOUGLAS HART, JENNIFER Tavarez Ot Z09 ENCNTR FOR F/U EXAM AFT TRTMT FOR COND O 11/22/2016 LAKIA MONTANA Ot 272.4 HYPERLIPIDEMIA NEC/NOS 11/22/2016 LAKIA MONTANA Ot 401.9 HYPERTENSION NOS 11/22/2016 LAKIA MONTANA Ot 414.00 CORON ATHEROSCLER NOS TYPE VESSEL, NATIV 11/22/2016 LAKIA MONTANA Ot 426.4 RT BUNDLE BRANCH BLOCK 11/22/2016 LAKIA MONTANA Ot 427.31 ATRIAL FIBRILLATION 11/22/2016 LAKIA MONTANA Ot 782.3 EDEMA 11/22/2016 DOUGLAS HART, JENNIFER Tavarez Ot V72.84 EXAM PRE-OPERATIVE NOS 11/22/2016 RAUL HART, ANDERSON Bustillo Ot 427.31 ATRIAL FIBRILLATION 12/14/2016 ANDERSON CARTER MD Ot I10 ESSENTIAL (PRIMARY) HYPERTENSION 02/01/2017 ARMANDO DPM, VERA Q Ot E11.9 TYPE 2 DIABETES MELLITUS WITHOUT COMPLIC 02/23/2017 ARMANDO DPM, VREA Q Ot E11.9 TYPE 2 DIABETES MELLITUS WITHOUT COMPLIC 02/23/2017 KARRIENDER , CINDY S Ot E11.65 TYPE 2 DIABETES MELLITUS WITH HYPERGLYCE 02/23/2017 KARRIENDER DO, CINDY S Ot E78.2 MIXED HYPERLIPIDEMIA 02/23/2017 KARRIENDER DO, CINDY S Ot I10 ESSENTIAL (PRIMARY) HYPERTENSION 04/04/2017 LALY AGATA MOLDING LINE OPERATOR Ot E03.9 HYPOTHYROIDISM, UNSPECIFIED 04/04/2017 LALY, AGATA MOLDING LINE OPERATOR Ot E11.9 TYPE 2 DIABETES MELLITUS WITHOUT COMPLIC 04/04/2017 LALY, AGATA MOLDING LINE OPERATOR Ot E78.00 PURE HYPERCHOLESTEROLEMIA, UNSPECIFIED 04/04/2017 LALY, AGATA MOLDING LINE OPERATOR Ot F41.9 ANXIETY DISORDER, UNSPECIFIED 04/04/2017 LALY, AGATA MOLDING LINE OPERATOR Ot I10 ESSENTIAL (PRIMARY) HYPERTENSION 04/04/2017 LALY, AGATA MOLDING LINE OPERATOR Ot K21.9 GASTRO-ESOPHAGEAL REFLUX DISEASE WITHOUT 04/04/2017 LALY, AGATA MOLDING LINE OPERATOR Ot S40.011A CONTUSION OF RIGHT SHOULDER, INITIAL ENC 04/04/2017 LALY AGATA SHARPEP Ot S80.01XA CONTUSION OF RIGHT KNEE, INITIAL ENCOUNT 04/04/2017 LALYAGATA LamP Ot S80.211A ABRASION, RIGHT KNEE, INITIAL ENCOUNTER 04/04/2017 LALYAGATA Lam MOLDING LINE OPERATOR Ot W22.09XA STRIKING AGAINST OTHER STATIONARY OBJECT 04/04/2017 LALYAGATA LamP Ot Z23 ENCOUNTER FOR IMMUNIZATION 04/04/2017 LALYAGATA LamP Ot Z79.82 CARE HOME (CURRENT) USE OF ASPIRIN 04/04/2017 LALYAGATA LamP Ot Z79.84 RELIEF CAPTAIN (CURRENT) USE OF ORAL HYPOGLYC 04/04/2017 LALYAGATA LamP Ot Z85.038 PERSONAL HISTORY OF MALIGNANT NEOPLASM O 04/04/2017 LALYAGATA LamP Ot Z86.14 PERSONAL HISTORY OF METHICILLIN RESIS ST 04/04/2017 LALYAGATA LamP Ot Z87.19 PERSONAL HISTORY OF OTHER DISEASES OF TH 04/04/2017 LALYAGATA LamP Ot Z90.49 ACQUIRED ABSENCE OF OTHER SPECIFIED PART 04/06/2017 LALYAGATA LamP Ot E03.9 HYPOTHYROIDISM, UNSPECIFIED 04/06/2017 LALYAGATA LamP Ot E11.9 TYPE 2 DIABETES MELLITUS WITHOUT COMPLIC 04/06/2017 LALYAGATA LamP Ot E78.00 PURE HYPERCHOLESTEROLEMIA, UNSPECIFIED 04/06/2017 LALY, AGATA MOLDING LINE OPERATOR Ot F41.9 ANXIETY DISORDER, UNSPECIFIED 04/06/2017 LALYAGATA LamP Ot I10 ESSENTIAL (PRIMARY) HYPERTENSION 04/06/2017 LALYAGATA LamP Ot K21.9 GASTRO-ESOPHAGEAL REFLUX DISEASE WITHOUT 04/06/2017 LALYAGATA LamP Ot S40.011A CONTUSION OF RIGHT SHOULDER, INITIAL ENC 04/06/2017 LALYAGATA LamP Ot S80.01XA CONTUSION OF RIGHT KNEE, INITIAL ENCOUNT 04/06/2017 LALYAGATA LamP Ot S80.211A ABRASION, RIGHT KNEE, INITIAL ENCOUNTER 04/06/2017 LALYAGATA LamP Ot W22.09XA STRIKING AGAINST OTHER STATIONARY OBJECT 04/06/2017 LALYAGATA LamP Ot Z23 ENCOUNTER FOR IMMUNIZATION 04/06/2017 AGATA RUFFINP Ot Z79.82 RELIEF CAPTAIN (CURRENT) USE OF ASPIRIN 04/06/2017 AGATA RUFFINP Ot Z79.84 CARE HOME (CURRENT) USE OF ORAL HYPOGLYC 04/06/2017 AGATA RUFFINP Ot Z85.038 PERSONAL HISTORY OF MALIGNANT NEOPLASM O 04/06/2017 LALYAGATA LamP Ot Z86.14 PERSONAL HISTORY OF METHICILLIN RESIS ST 04/06/2017 LALYAGATA LamP Ot Z87.19 PERSONAL HISTORY OF OTHER DISEASES OF TH 04/06/2017 LALYAGATA LamP Ot Z90.49 ACQUIRED ABSENCE OF OTHER SPECIFIED PART 04/06/2017 LALYAGATA LamP Ot E03.9 HYPOTHYROIDISM, UNSPECIFIED 04/06/2017 AGATA RUFFINP Ot E11.9 TYPE 2 DIABETES MELLITUS WITHOUT COMPLIC 04/06/2017 AGATA RUFFINP Ot E78.00 PURE HYPERCHOLESTEROLEMIA, UNSPECIFIED 04/06/2017 AGATA RUFFINP Ot F41.9 ANXIETY DISORDER, UNSPECIFIED 04/06/2017 AGATA RUFFINP Ot I10 ESSENTIAL (PRIMARY) HYPERTENSION 04/06/2017 AGATA RUFFINP Ot K21.9 GASTRO-ESOPHAGEAL REFLUX DISEASE WITHOUT 04/06/2017 AGATA RUFFINP Ot S40.011A CONTUSION OF RIGHT SHOULDER, INITIAL ENC 04/06/2017 AGATA RUFFINP Ot S80.01XA CONTUSION OF RIGHT KNEE, INITIAL ENCOUNT 04/06/2017 AGATA RUFFINP Ot S80.211A ABRASION, RIGHT KNEE, INITIAL ENCOUNTER 04/06/2017 AGATA RUFFINP Ot W22.09XA STRIKING AGAINST OTHER STATIONARY OBJECT 04/06/2017 AGATA RUFFINP Ot Z23 ENCOUNTER FOR IMMUNIZATION 04/06/2017 AGATA RUFFINP Ot Z79.82 RELIEF CAPTAIN (CURRENT) USE OF ASPIRIN 04/06/2017 AGATA RUFFINP Ot Z79.84 CARE HOME (CURRENT) USE OF ORAL HYPOGLYC 04/06/2017 AGATA RUFFINP Ot Z85.038 PERSONAL HISTORY OF MALIGNANT NEOPLASM O 04/06/2017 LALYAGATA LamP Ot Z86.14 PERSONAL HISTORY OF METHICILLIN RESIS ST 04/06/2017 AGATA RUFFINP Ot Z87.19 PERSONAL HISTORY OF OTHER DISEASES OF TH 04/06/2017 LALYAGATA LamP Ot Z90.49 ACQUIRED ABSENCE OF OTHER SPECIFIED PART 07/10/2017 DOUGLAS HART, JENNIFER Tavarez Ot Z01.818 ENCOUNTER FOR OTHER PREPROCEDURAL EXAMIN 07/10/2017 JENNIFER COLE MD Ot Z85.038 PERSONAL HISTORY OF MALIGNANT NEOPLASM O 07/11/2017 JNENIFER COLE MD Ot Z01.818 ENCOUNTER FOR OTHER PREPROCEDURAL EXAMIN 07/11/2017 JENNIFER COLE MD Ot Z85.038 PERSONAL HISTORY OF MALIGNANT NEOPLASM O 07/11/2017 JENNIFER COLE MD Ot Z01.818 ENCOUNTER FOR OTHER PREPROCEDURAL EXAMIN 07/11/2017 JENNIFER COLE MD Ot Z85.038 PERSONAL HISTORY OF MALIGNANT NEOPLASM O 08/13/2017 JENNIFER COLE MD Ot Z01.818 ENCOUNTER FOR OTHER PREPROCEDURAL EXAMIN 08/13/2017 JENNIFER COLE MD Ot Z85.038 PERSONAL HISTORY OF MALIGNANT NEOPLASM O Procedures There is no data. Results Test Result Range Serum or plasma renal function panel (Na, K, Cl, CO2, BUN, Cr, glucose,Ca, phos , alb) - 11/22/16 10:45 Serum or plasma sodium measurement (moles/volume) 137 mmol/L 135-145 Serum or plasma potassium measurement (moles/volume) 4.3 mmol/L 3.6-5.0 Serum or plasma chloride measurement (moles/volume) 103 mmol/L 98-107 Carbon dioxide 22 mmol/L 21-32 Serum or plasma anion gap determination (moles/volume) 12 mmol/L 5-14 Serum or plasma urea nitrogen measurement (mass/volume) 14 mg/dL 7-18 Serum or plasma creatinine measurement (mass/volume) 1.03 mg/dL 0.60-1.30 Serum or plasma urea nitrogen/creatinine mass ratio 14 0 -20 Serum or plasma creatinine measurement with calculation of estimated glomerular filtration rate > NRG Serum or plasma glucose measurement (mass/volume) 320 mg/dL 70-105 Serum or plasma calcium measurement (mass/volume) 9.7 mg/dL 8.5-10.1 Serum or plasma albumin measurement (mass/volume) 3.7 g/dL 3.2-4.5 Serum or plasma phosphate measurement (mass/volume) 2.5 mg/dL 2.3-4.7 Complete blood count (CBC) with automated white blood cell (WBC) differential - 01/31/17 09:21 Blood leukocytes automated count (number/volume) 7.7 10*3/uL 4.3-11.0 Blood erythrocytes automated count (number/volume) 4.13 10*6/uL 4.35-5.85 Venous blood hemoglobin measurement (mass/volume) 12.0 g/dL 13.3-17.7 Blood hematocrit (volume fraction) 37 % 40-54 Automated erythrocyte mean corpuscular volume 90 [foz_us] 80-99 Automated erythrocyte mean corpuscular hemoglobin (mass per erythrocyte) 29 pg 25-34 Automated erythrocyte mean corpuscular hemoglobin concentration measurement ( mass/volume) 32 g/dL 32-36 Automated erythrocyte distribution width ratio 13.9 % 10.0-14.5 Automated blood platelet count (count/volume) 162 10*3/uL 130-400 Automated blood platelet mean volume measurement 9.9 [foz_us] 7.4-10.4 Automated blood neutrophils/100 leukocytes 73 % 42-75 Automated blood lymphocytes/100 leukocytes 13 % 12-44 Blood monocytes/100 leukocytes 8 % 0-12 Automated blood eosinophils/100 leukocytes 6 % 0-10 Automated blood basophils/100 leukocytes 0 % 0-10 Blood neutrophils automated count (number/volume) 5.6 10*3 1.8-7.8 Blood lymphocytes automated count (number/volume) 1.0 10*3 1.0-4.0 Blood monocytes automated count (number/volume) 0.6 10*3 0.0-1.0 Automated eosinophil count 0.4 10*3/uL 0.0-0.3 Automated blood basophil count (count/volume) 0.0 10*3/uL 0.0-0.1 Hemoglobin A1c - 01/31/17 09:21 Hemoglobin A1c 13.1 % 4.5-6.2 Comprehensive metabolic panel - 01/31/17 09:21 Serum or plasma sodium measurement (moles/volume) 137 mmol/L 135-145 Serum or plasma potassium measurement (moles/volume) 4.1 mmol/L 3.6-5.0 Serum or plasma chloride measurement (moles/volume) 102 mmol/L 98-107 Carbon dioxide 23 mmol/L 21-32 Serum or plasma anion gap determination (moles/volume) 12 mmol/L 5-14 Serum or plasma urea nitrogen measurement (mass/volume) 19 mg/dL 7-18 Serum or plasma creatinine measurement (mass/volume) 1.08 mg/dL 0.60-1.30 Serum or plasma urea nitrogen/creatinine mass ratio 18 NRG Serum or plasma creatinine measurement with calculation of estimated glomerular filtration rate > NRG Serum or plasma glucose measurement (mass/volume) 353 mg/dL 70-105 Serum or plasma calcium measurement (mass/volume) 9.7 mg/dL 8.5-10.1 Serum or plasma total bilirubin measurement (mass/volume) 0.5 mg/dL 0.1-1.0 Serum or plasma alkaline phosphatase measurement (enzymatic activity/volume) 94 U/L 40-136 Serum or plasma aspartate aminotransferase measurement (enzymatic activity/ volume) 34 U/L 5-34 Serum or plasma alanine aminotransferase measurement (enzymatic activity/volume ) 40 U/L 0-55 Serum or plasma protein measurement (mass/volume) 7.8 g/dL 6.4-8.2 Serum or plasma albumin measurement (mass/volume) 3.8 g/dL 3.2-4.5 Complete blood count (CBC) with automated white blood cell (WBC) differential - 08/07/17 09:36 Blood leukocytes automated count (number/volume) 8.2 10*3/uL 4.3-11.0 Blood erythrocytes automated count (number/volume) 3.79 10*6/uL 4.35-5.85 Venous blood hemoglobin measurement (mass/volume) 11.3 g/dL 13.3-17.7 Blood hematocrit (volume fraction) 35 % 40-54 Automated erythrocyte mean corpuscular volume 92 [foz_us] 80-99 Automated erythrocyte mean corpuscular hemoglobin (mass per erythrocyte) 30 pg 25-34 Automated erythrocyte mean corpuscular hemoglobin concentration measurement ( mass/volume) 33 g/dL 32-36 Automated erythrocyte distribution width ratio 14.5 % 10.0-14.5 Automated blood platelet count (count/volume) 198 10*3/uL 130-400 Automated blood platelet mean volume measurement 9.6 [foz_us] 7.4-10.4 Automated blood neutrophils/100 leukocytes 77 % 42-75 Automated blood lymphocytes/100 leukocytes 12 % 12-44 Blood monocytes/100 leukocytes 6 % 0-12 Automated blood eosinophils/100 leukocytes 5 % 0-10 Automated blood basophils/100 leukocytes 0 % 0-10 Blood neutrophils automated count (number/volume) 6.3 10*3 1.8-7.8 Blood lymphocytes automated count (number/volume) 1.0 10*3 1.0-4.0 Blood monocytes automated count (number/volume) 0.5 10*3 0.0-1.0 Automated eosinophil count 0.4 10*3/uL 0.0-0.3 Automated blood basophil count (count/volume) 0.0 10*3/uL 0.0-0.1 Comprehensive metabolic panel - 08/07/17 09:36 Serum or plasma sodium measurement (moles/volume) 140 mmol/L 135-145 Serum or plasma potassium measurement (moles/volume) 4.2 mmol/L 3.6-5.0 Serum or plasma chloride measurement (moles/volume) 104 mmol/L 98-107 Carbon dioxide 26 mmol/L 21-32 Serum or plasma anion gap determination (moles/volume) 10 mmol/L 5-14 Serum or plasma urea nitrogen measurement (mass/volume) 17 mg/dL 7-18 Serum or plasma creatinine measurement (mass/volume) 1.04 mg/dL 0.60-1.30 Serum or plasma urea nitrogen/creatinine mass ratio 16 NRG Serum or plasma creatinine measurement with calculation of estimated glomerular filtration rate > NRG Serum or plasma glucose measurement (mass/volume) 207 mg/dL 70-105 Serum or plasma calcium measurement (mass/volume) 9.6 mg/dL 8.5-10.1 Serum or plasma total bilirubin measurement (mass/volume) 0.7 mg/dL 0.1-1.0 Serum or plasma alkaline phosphatase measurement (enzymatic activity/volume) 73 U/L 40-136 Serum or plasma aspartate aminotransferase measurement (enzymatic activity/ volume) 24 U/L 5-34 Serum or plasma alanine aminotransferase measurement (enzymatic activity/volume ) 34 U/L 0-55 Serum or plasma protein measurement (mass/volume) 7.9 g/dL 6.4-8.2 Serum or plasma albumin measurement (mass/volume) 3.9 g/dL 3.2-4.5 Lipid 1996 panel - 08/07/17 09:36 Serum or plasma triglyceride measurement (mass/volume) 107 mg/dL <150 Serum or plasma cholesterol measurement (mass/volume) 115 mg/dL < 200 Serum or plasma cholesterol in HDL measurement (mass/volume) 32 mg/ dL 40-60 Cholesterol in LDL [mass/volume] in serum or plasma by direct assay 63 mg/dL 1-129 Serum or plasma cholesterol in VLDL measurement (mass/volume) 21 mg/ dL 5-40 THYROID STIMULATING HORMONE - 08/07/17 09:36 THYROID STIMULATING HORMONE 2.48 u[iU]/mL 0.35-4.94 Hemoglobin A1c - 08/07/17 09:36 Blood hemoglobin A1C measurement (mass/volume) 8.8 % 4.0- 5.6 MEAN BLOOD GLUCOSE 206 % <=126 Thyroxine (T4) measurement - 08/07/17 09:36 T4 (thyroxine) 9.8 % 5.5-12.0 Encounters ACCT No. Visit Date/Time Discharge Status Pt. Type Provider Facility Loc./Unit Complaint [id number] 08/13/2017 05:40:00 08/13/2017 23:59:59 CLS Outpatient JENNIFER COLE MD [facility] PREOP COLONOSCOPY [id number] 08/07/2017 09:21:00 08/07/2017 23:59:59 CLS Outpatient CINDY CHAVIRA DO [facility] LAB E03.9 [id number] 07/16/2017 08:00:00 07/16/2017 23:59:59 CLS Preadmit JENNIFER COLE MD [facility] ENDO PERSONAL HX COLON CA [id number] 04/04/2017 19:39:00 04/04/2017 22:04:00 DIS Emergency AAGTA RUFFIN [facility] ER PT FELL,RT SHOULDER PAIN, RT KNEE PAIN [id number] 01/31/2017 11:59:00 01/31/2017 23:59:59 CLS Outpatient CINDY CHAVIRA DO S [facility] LABNPT E11.65, E78.2, I10 [id number] 01/31/2017 09:11:00 01/31/2017 23:59:59 CLS Outpatient ARMANDO WHITING, VERA Q [facility] LAB DIABETES [id number] 11/22/2016 10:34:00 11/22/2016 23:59:59 CLS Outpatient ANDERSON CARTER MD [facility] LAB HTN [id number] 12/27/2015 13:38:00 12/27/2015 15:45:00 DIS Outpatient JENNIFER COLE MD [facility] GERD [id number] 12/22/2015 05:50:00 12/22/2015 09:45:00 DIS Outpatient JENNIFER COLE MD [facility] PREOP GERD [id number] 08/30/2015 20:59:00 08/31/2015 00:06:00 DIS Emergency REMY MATOS NORRIS Manning [facility] ER LOWER L BACK PAIN [id number] 11/23/2014 06:56:00 11/23/2014 23:59:59 CLS Outpatient ANDERSON CARTER MD [facility] A-FIB [id number] 11/23/2014 06:52:00 11/23/2014 09:35:00 DIS Outpatient JENNIFER COLE MD [facility] GASTRIC EROSIONS [id number] 11/18/2014 06:34:00 11/18/2014 23:59:59 CLS Outpatient JENNIFER COLE MD [facility] PREOP GASTRIC EROSIONS [id number] 11/09/2014 13:08:00 11/09/2014 14:37:00 DIS Outpatient MILLY TYLER MD [facility] CARD DEGENERATIVE DISC DISEASE LUMBAR LUMBAR SPONDOLOYS [id number] 08/31/2014 09:32:00 08/31/2014 12:45:00 DIS Outpatient JENNIFER COLE MD [facility] DYSPHAGIA; EPIGASTRIC PAIN [id number] 10/01/2013 07:28:00 10/01/2013 23:59:59 CLS Outpatient LAKIA MONTANA [facility] CARD CAD,HTN,HLP [id number] 09/19/2013 09:15:00 09/19/2013 23:59:59 CLS Outpatient [id number] 02/16/2013 15:42:00 02/16/2013 18:29:00 DIS Emergency [id number] 01/13/2013 11:28:00 01/13/2013 13:08:00 DIS Emergency [id number] 12/02/2012 10:07:00 12/02/2012 23:59:59 CLS Outpatient [id number] 11/09/2012 12:00:00 11/11/2012 21:00:00 DIS Outpatient [id number] 11/05/2012 07:45:00 11/06/2012 14:00:00 DIS Outpatient
== END 2017-08-20 10:20 | disposition home or self-care (01) ==
LOC: ENDO 06:36
PROVIDERS: ATTEND Surgery
DX: D12.0 Benign neoplasm of cecum (principal); Z85.038 Personal history of other malignant neoplasm of large intestine; Z88.2 Allergy status to sulfonamides; Z88.5 Allergy status to narcotic agent; Z79.899 Other long term (current) drug therapy; I25.10 Atherosclerotic heart disease of native coronary artery without angina pectoris; E78.00 Pure hypercholesterolemia, unspecified; I10 Essential (primary) hypertension; Z95.5 Presence of coronary angioplasty implant and graft; Z87.442 Personal history of urinary calculi; E03.9 Hypothyroidism, unspecified; E11.9 Type 2 diabetes mellitus without complications; F41.9 Anxiety disorder, unspecified
CPT/HCPCS: 88305

== ENCOUNTER 2018-01-21 13:02 | Outpatient (RCR) | payer MEDICARE ==
[~2018-01-21 13:02] MED LIST changes: -AMLO5TAB2 PO; +AMLO5TAB7 PO; +METF-399 PO; -METF1000 PO; -SPIR50TA2 PO; +SPIR50TA4 PO
[2018-01-21 14:18] LABS: BASOPHILS % (AUTO) 0 % (0-10); EOSINOPHILS # (AUTO) 0.5 10^3/uL (0.0-0.3); EOSINOPHILS % (AUTO) 5 % (0-10); HEMATOCRIT 33 % (40-54); HEMOGLOBIN 10.5 G/DL (13.3-17.7); LYMPHOCYTES # (AUTO) 1.2 X 10^3 (1.0-4.0); LYMPHOCYTES % (AUTO) 14 % (12-44); MEAN CORPUSCULAR HEMOGLOBIN 29 PG (25-34); MEAN CORPUSCULAR HGB CONC 32 G/DL (32-36); MEAN CORPUSCULAR VOLUME 92 FL (80-99); MEAN PLATELET VOLUME 9.6 FL (7.4-10.4); MONOCYTES # (AUTO) 0.7 X 10^3 (0.0-1.0); MONOCYTES % (AUTO) 8 % (0-12); NEUTROPHILS # (AUTO) 6.6 X 10^3 (1.8-7.8); NEUTROPHILS % (AUTO) 73 % (42-75); PLATELET COUNT 208 10^3/uL (130-400); RED BLOOD COUNT 3.57 10^6/uL (4.35-5.85); RED CELL DISTRIBUTION WIDTH 14.6 % (10.0-14.5); WHITE BLOOD COUNT 8.9 10^3/uL (4.3-11.0)
[2018-01-21 14:46] LABS: ALANINE AMINOTRANSFERASE 55 U/L (0-55); ALKALINE PHOSPHATASE 71 U/L (40-136); BILIRUBIN,TOTAL 0.7 MG/DL (0.1-1.0); BUN/CREATININE RATIO 18; CALCIUM 9.7 MG/DL (8.5-10.1); CARBON DIOXIDE 23 MMOL/L (21-32); CHLORIDE 102 MMOL/L (98-107); CREATININE SERUM 0.97 MG/DL (0.60-1.30); GFR ESTIMATED > 60; GLUCOSE 176 MG/DL (70-105); POTASSIUM 4.2 MMOL/L (3.6-5.0); SODIUM 135 MMOL/L (135-145); TOTAL PROTEIN 7.4 GM/DL (6.4-8.2)
== END 2018-02-08 | disposition home or self-care (01) ==
LOC: ONC 13:02
PROVIDERS: ATTEND Internal Medicine Hematology & Oncology
DX: D64.9 Anemia, unspecified (principal); Z85.038 Personal history of other malignant neoplasm of large intestine; E11.9 Type 2 diabetes mellitus without complications; K04.7 Periapical abscess without sinus; E66.9 Obesity, unspecified; Z79.4 Long term (current) use of insulin; I25.10 Atherosclerotic heart disease of native coronary artery without angina pectoris; I10 Essential (primary) hypertension; E78.5 Hyperlipidemia, unspecified; F41.9 Anxiety disorder, unspecified; Z86.010 Personal history of colon polyps
CPT/HCPCS: 80053; 82728; 83540; 85025; 99214

== ENCOUNTER 2018-08-15 12:00 | Outpatient (CLI) | payer MEDICARE ==
[~2018-08-15] VITALS: Ht 172.7 cm; Wt 126.6 kg
[~2018-08-15 12:00] MED LIST changes: +AMIO200T4 PO; -AMLO5TAB7 PO; +AMLO5TAB9 PO; -GABA600T2 PO; +GBPN600T PO; +INSU100I10 SQ; +LOSA1TAB15 PO; +METF-397 PO; +RIVA20TA PO
== END 2018-08-15 12:05 | disposition home or self-care (01) ==
LOC: PREOP 12:00
PROVIDERS: ATTEND Surgery
DX: Z01.818 Encounter for other preprocedural examination (principal)

== ENCOUNTER 2018-08-19 07:13 | Day surgery (SDC) | payer MEDICARE ==
[~2018-08-19] VITALS: Ht 172.7 cm; Wt 126.6 kg
--- OUTSIDE RECORDS SUMMARY | 2018-08-19 07:18 | XMS REPORT ---
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 922479240 Problem 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 60148573 Problem Type 2 diabetes mellitus with other specified complication E11.69 Active 771454585056 ALLERGIES Substance Reaction Event Type Date Status SulfADIAZINE nausea Drug Allergy May, Active Codeine Sulfate nausea Drug Allergy May, Active ENCOUNTERS Encounter Location Date Diagnosis [place] [address] [place] [address] May, Essential hypertension I10 ; Type 2 diabetes mellitus with other specified complication E11.69 ; Type 2 diabetes mellitus with other circulatory complications E11.59 ; Chronic GERD K21.9 ; Coronary artery disease involving [place] coronary artery of [place] heart without angina pectoris I25.10 ; Hyperlipidemia, unspecified E78.5 and Dermatitis of lower extremity L30.9 [facility] [address] [place] [address] [id number] [address] Apr, [facility] [address] [place] [address]83[address] 5605 Apr, [facility] [address] [place] [address] 64060- 7366 Apr, [place] [address] [place] [id number] [place] [address] 91168- 9878 Apr, Chronic GERD K21.9 [facility] [address] [address] Apr, [facility] [id number] [place] [address] 20849- 6783 Mar, [facility] [address] [address] Mar, Acute contact dermatitis L25.9 [facility] [address] [address] 9269 Mar, [facility] [address] [address]- 48[address] Mar, [facility] [address] 259[address]- 1386 Mar, [facility] [address] 87[address]- 6710 Mar, [facility] [id number] [place] [address] 98993- 4162 Mar, Encounter for immunization Z23 [facility] [address] [id number] [place] [address] 22260- 3495 Mar, [facility] [id number] [place] [address] 12733- 1510 Mar, Type 2 diabetes mellitus with other circulatory complications E11.59 and BMI 40.0-44.9, adult Z68.41 [facility] [address] [id number] [place] [address] 27930- 7729 Feb, [facility] [address] [address]- 6[address] Feb, [facility] [id number] [place] [address] 80319- 7547 Feb, [facility] [address] [address]- 2882 Feb, BMI 40.0-44.9, adult Z68.41 ; Type 2 diabetes mellitus with other circulatory complications E11.59 ; termite control technician current use of insulin Z79.4 ; Hyperlipidemia, unspecified E78.5 ; Essential hypertension I10 and Coronary artery disease involving [place] coronary artery of [place] heart without angina pectoris I25.10 [facility] [address] [place] [id number] [address] Jul, Oral abscess K12.2 and BMI 40.0-44.9, adult Z68.41 [facility] [place] [id number] [place] [address]474 [address] Jan, Blister of left lower extremity, initial encounter S80.822A [facility] [place] [id number] [place] [address]1849 Jun, Cellulitis of left lower extremity L03.116 and Cellulitis of right lower limb L03.115 [facility] [place] [id number] [place] [address]66 -2299 Jun, Cough 786.2 [facility] [place] [id number] [place] [address] 0[address] 07 Jun, 2016 Acute non-recurrent maxillary sinusitis J01.00 IMMUNIZATIONS No Known Immunizations SOCIAL HISTORY Never Assessed REASON FOR VISIT Diabetes-CHEPE coleman, here for a check up. pt fell three weeks ago and hit his head had right eye surgery PLAN OF CARE Activity Details Follow Up 3 Months Reason: VITAL SIGNS Height 68 in 2018-05-21 Weight 273.1 lbs 2018-05-21 Temperature 97.3 degrees Fahrenheit 2018-05-21 Heart Rate 66 bpm 2018-05-21 Respiratory Rate 20 2018-05-21 Oximetry on room air:95 % 2018-05-21 BMI 41.52 kg/m2 2018-05-21 Blood pressure systolic 140 mmHg 2018-05-21 Blood pressure diastolic 80 mmHg 2018-05-21 MEDICATIONS Medication Instructions Dosage Frequency Start Date End Date Duration Status Blood Glucose Test Strip - In Vitro 2 times a day as directed 12Mar, Active Lipitor 20 mg Orally Once a day 1 tablet 24h 30 days Active Triamcinolone Acetonide 0.1 % Externally Twice a day 1 application to affected area 12h 11 May, 2018 14 days Active Baby Aspirin 81 MG Orally Once a day 1 tablet 24h Active Spironolactone 50 mg Orally Once a day 1 tablet 24h 30 days Active Omeprazole 40 mg Orally twice a day 1 capsule 12h 4 Active Mupirocin 2 % Externally Three times a day 1 application to affected area 8h 30 days Active Losartan Potassium-HCTZ 100-12.5 MG Orally Once a day 1 tablet 24h 30 days Active Gabapentin 600 MG Orally 3 times a day 1 tablet 8h 04 Feb, 2018 30 days Active Furosemide 40 mg Orally Once a day 1 tablet 24h 30 days Active MetFORMIN HCl ER 500 mg Orally twice a day with food 1 tablet Apr, 30 day(s) Active Levothyroxine Sodium 88 MCG Orally Once a day 1 tablet on an empty stomach in the morning 24h 30 days Active Flecainide Acetate 100 MG Active Norvasc 5 mg Orally Once a day 1 tablet 24h 30 days Active Multivitamin Men - Active Lantus SoloStar 100 UNIT/ML Subcutaneous at bedtime 15 units Mar, Active RESULTS No Results PROCEDURES Procedure Date Ordered Result Body Site [facility] VISIT ESTABLISHED PATIENT May 21, 2018 GLYCATED HEMOGLOBIN TEST May 21, 2018 LAB NOT BILLED BY [facility] May 21, 2018 VENIPUNCT, ROUTINE* May 21, 2018 INSTRUCTIONS MEDICATIONS ADMINISTERED No Known Medications MEDICAL (GENERAL) HISTORY Type Description Date Medical History hypertension Medical History hx of colon ca - s/p 14in colon removal and chemo; sees Dr Schmidt for cscopes Medical History heart cath - Dr Bowman Medical History DMT2 Medical History HL Medical History Morbid Obesity Surgical History bilateral knee scope 1993 1998 Surgical History left elbow 1992 Surgical History right hand surgery 1998 Surgical History right wrist surgery 2010 Surgical History 2 stents in heart 2012 Surgical History heart cath 2012 Surgical History wire placed in chest 2013 Surgical History right eye surgery to remove a floater 2014 Surgical History left eye surgery...detached retina 2014 Surgical History cataract surgery bilaterally 2015 Surgical History right eye surgery 2018 Hospitalization History for heart surgery 2012
--- OUTSIDE RECORDS SUMMARY | 2018-08-19 07:18 | XMS REPORT ---
Author Author JOSHUA GIBSON Organization [facility] Address [address] [place] [address] Care Team Providers Care Grinder Set Up Operator Centerless Name Role Phone JOSHUA GIBSON Unavailable PROBLEMS Type Condition ICD9-CM Code OSA17-VR Code Onset Dates Condition Status SNOMED Code Problem Essential hypertension I10 Active 96417872 Problem Chronic GERD K21.9 Active 429122777 Problem Coronary artery disease involving [place] coronary artery of [place] heart without angina pectoris I25.10 Active 4720706052894 Problem Hyperlipidemia, unspecified E78.5 Active 63726670 Problem skilled nursing current use of insulin Z79.4 Active 061989255 Problem 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 49902003 Problem Type 2 diabetes mellitus with other specified complication E11.69 Active 182755892945 ALLERGIES No Information ENCOUNTERS Encounter Location Date Diagnosis [facility] [address] [address] May, [facility] [address] [place] [id number] [place] [address] 63978- 5408 Apr, Chronic GERD K21.9 [facility] [address] [id number] [place] [address] 67194- 7575 Apr, [facility] [id number] [place] [address] 57680- 4742 Mar, [facility] [id number] [place] [address] 38931 -1459 Mar, Acute contact dermatitis L25.9 [facility] [id number] [place] [address] 45105- 4971 Mar, [facility] [id number] [place] [address] 80808- 3376 Mar, [place] [address], [place] [address] Mar, [place] [address] [address] [id number] [place] [address] 84326- 2135 Mar, [facility] [address] [place] [id number] [address] Mar, Encounter for immunization Z23 [place] [address] [place] [id number] [place] [address] 98742- 8765 Mar, [place] [address] [place] [address] [id number] [place] [address] 79077- 2056 Mar, Type 2 diabetes mellitus with other circulatory complications E11.59 and BMI 40.0-44.9, adult Z68.41 [place] [address] [place] [address] [place] [address] 82552- 8338 Feb, [place] [address] [place] [address] [id number] [place] [address] 08178- 0783 Feb, [place] [address] [address] [address] [place] [address] 70073- 9186 Feb, [place] [address] [place] [address] [place] [address] 82461- 6344 Feb, BMI 40.0-44.9, adult Z68.41 ; Type 2 diabetes mellitus with other circulatory complications E11.59 ; termite technician current use of insulin Z79.4 ; Hyperlipidemia, unspecified E78.5 ; Essential hypertension I10 and Coronary artery disease involving [place] coronary artery of [place] heart without angina pectoris I25.10 [facility] [address], [place] [address] Jul, Oral abscess K12.2 and BMI 40.0-44.9, adult Z68.41 [facility] [address] [place] [address] [address] Jan, Blister of left lower extremity, initial encounter S80.822A [facility] [address] [place] [address] [id number] [address] Jun, Cellulitis of left lower extremity L03.116 and Cellulitis of right lower limb L03.115 [facility] [address] [facility] [id number] [address] Jun, Cough 786.2 [facility] [address] [facility] [id number] [address] Jun, Acute non-recurrent maxillary sinusitis J01.00 IMMUNIZATIONS No Known Immunizations SOCIAL HISTORY Never Assessed REASON FOR VISIT PLAN OF CARE VITAL SIGNS MEDICATIONS Medication Instructions Dosage Frequency Start Date End Date Duration Status Omeprazole 40 mg Orally twice a day 1 capsule 12h Apr, 90 days Active RESULTS No Results PROCEDURES No Known procedures INSTRUCTIONS MEDICATIONS ADMINISTERED No Known Medications MEDICAL (GENERAL) HISTORY Type Description Date Medical History hypertension Medical History hx of colon ca - s/p 14in colon removal and chemo; sees Dr Shcmidt for cscopes Medical History heart cath - Dr Bowman Medical History DMT2 Medical History HL Medical History Morbid Obesity Surgical History bilateral knee scope 1992 1998 Surgical History left elbow 1992 Surgical History right hand surgery 1998 Surgical History right wrist surgery 2010 Surgical History 2 stents in heart 2012 Surgical History heart cath 2012 Surgical History wire placed in chest 2013 Surgical History right eye surgery to remove a floater 2014 Surgical History left eye surgery...detached retina 2015 Surgical History cataract surgery bilaterally 2015 Hospitalization History for heart surgery 2012
--- OUTSIDE RECORDS SUMMARY | 2018-08-19 07:18 | XMS REPORT ---
Author Author ZACK BOYD Organization [facility] Address [address] 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 35270380 Problem Type 2 diabetes mellitus with other specified complication E11.69 Active 534993856985 Problem Essential hypertension I10 Active 54318001 Problem Coronary artery disease 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 pectoris I25.10 Active 5172034879635 Problem Hyperlipidemia, unspecified E78.5 Active 80453153 Problem terminal 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 Active 234749869 ALLERGIES No Information ENCOUNTERS Encounter Location Date Diagnosis [facility] [address] [place] [id number] [place] [address] 47402- 0302 Apr, [facility] [address] [address]- [address]36 Apr, [facility] [address] [place] [id number] [place] [address] 88641- 0973 Mar, [facility] [address] [address] [id number] [place] [address]995 -3014 Mar, Acute contact dermatitis L25.9 [facility] [address] [place] [address] [id number] [place] [address] 88952- 7564 Mar, [facility] [id number] [place] [address] 77181- 4968 Mar, [facility] [address] [id number] [place] [address] 12262- 5272 Mar, [facility] [address] 405[address]- 4048 Mar, [place] [address], [place] [address] Mar, Encounter for immunization Z23 [place] [address] [place] [id number] [place] [address] 88177- 5839 Mar, [place] [address] [place] [id number] [place] [address] 63849- 5307 Mar, Type 2 diabetes mellitus with other circulatory complications E11.59 and BMI 40.0-44.9, adult Z68.41 [place] [address] [id number] [place] [address] 45161- 0504 Feb, [place] [address] [id number] [place] [address] 29216- 1315 Feb, [place] [address] [place] [id number] [place] [address] 96495- 2093 Feb, [place] [address] [place] [id number] [place] [address] 70372- 2009 Feb, BMI 40.0-44.9, adult Z68.41 ; Type 2 diabetes mellitus with other circulatory complications E11.59 ; terminal 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 ; Hyperlipidemia, unspecified E78.5 ; Essential hypertension I10 and Coronary artery disease 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 pectoris I25.10 [facility] [address] [place] [address] 69205 -1422 Jul, Oral abscess K12.2 and BMI 40.0-44.9, adult Z68.41 [facility] IN [id number], [place] [address] Jan, Blister of left lower extremity, initial encounter S80.822A [facility] [place] [id number] [place] [address] 31467 -1553 Jun, Cellulitis of left lower extremity L03.116 and Cellulitis of right lower limb L03.115 [facility] IN [place] [id number] [address] Jun, Cough 786.2 [facility] [address] [facility] [id number] [address] Jun, Acute non-recurrent maxillary sinusitis J01.00 IMMUNIZATIONS No Known Immunizations SOCIAL HISTORY Never Assessed REASON FOR VISIT Requests return call PLAN OF CARE VITAL SIGNS MEDICATIONS Unknown Medications RESULTS No Results PROCEDURES No Known procedures [...] 2014 Surgical History cataract surgery bilaterally 2015 Hospitalization History for heart surgery 2012
--- OUTSIDE RECORDS SUMMARY | 2018-08-19 07:18 | XMS REPORT ---
Author Author JOSHUA GIBSON Organization [facility] Address [address] [place] [address] Care Team Providers Care Spanish Speaking Nanny Name Role Phone JOSHUA GIBSON Unavailable PROBLEMS Type Condition ICD9-CM Code XIS09-HX Code Onset Dates Condition Status SNOMED Code Problem Essential hypertension I10 Active 22014943 Problem Chronic GERD K21.9 Active 576704596 Problem Coronary artery disease involving [place] coronary artery of [place] heart without angina pectoris I25.10 Active 0507474184904 Problem Hyperlipidemia, unspecified E78.5 Active 62057875 Problem [facility] current use of insulin Z79.4 Active 425002834 Problem 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 85629883 Problem Type 2 diabetes mellitus with other specified complication E11.69 Active 223197776958 ALLERGIES No Information ENCOUNTERS Encounter Location Date Diagnosis [facility] [id number] [place] [address]97- 3310 May, [facility] [id number] [place] [address] 11955- 6852 Apr, [facility] [id number] [place] [address] 91987- 8323 Apr, [facility] [id number] [place] [address] 18388- 9224 15 Apr, 2018 [facility] [id number] [place] [address] 84529- 3713 Apr, Chronic GERD K21.9 [facility] [id number] [place] [address] 92756- 6918 Apr, [facility] [id number] [place] [address] 63421- 5754 Mar, [facility] [id number] [place] [address] 48340 -0262 Mar, Acute contact dermatitis L25.9 [facility] [address] [address]- 2728 Mar, [facility] [address] [id number] [place] [address] 81029- 5185 Mar, [facility] [address] 95730- 8898 Mar, [facility] [address] [place] [address] [id number] [place] [address] 05367- 5346 Mar, [facility] [address] 35522- 2827 Mar, Encounter for immunization Z23 [facility] [address] 16429- 6738 Mar, [place] [address] 41130- 8754 Mar, Type 2 diabetes mellitus with other circulatory complications E11.59 and BMI 40.0-44.9, adult Z68.41 [facility] [id number] [place] [address] 72841- 6537 Feb, [facility] [address] [id number] [place] [address] 36365- 7928 Feb, [facility] [address] [id number] [place] [address] 34959- 3567 Feb, [facility] [address] [id number] [place] [address] 50765- 9488 Feb, BMI 40.0-44.9, adult Z68.41 ; Type 2 diabetes mellitus with other circulatory complications E11.59 ; middle or intermediate school principal current use of insulin Z79.4 ; Hyperlipidemia, unspecified E78.5 ; Essential hypertension I10 and Coronary artery disease involving [place] coronary artery of [place] heart without angina pectoris I25.10 [facility] [id number] [place] [address] 03211 -[address]24 Jul, Oral abscess K12.2 and BMI 40.0-44.9, adult Z68.41 [facility] [address], [place] [address] Jan, Blister of left lower extremity, initial encounter S80.822A [facility] [address] [place] [address] [address] Jun, Cellulitis of left lower extremity L03.116 and Cellulitis of right lower limb L03.115 [facility] [address] [place] [address] [address] Jun, Cough 786.2 [facility] [address] [place] [id number] [address] Jun, Acute non-recurrent maxillary sinusitis J01.00 IMMUNIZATIONS No Known Immunizations SOCIAL HISTORY Never Assessed REASON FOR VISIT BS f/u attempt PLAN OF CARE VITAL SIGNS MEDICATIONS Unknown [...]
--- OUTSIDE RECORDS SUMMARY | 2018-08-19 07:18 | XMS REPORT ---
Author Author ZACK BOYD Organization [facility] Address [address] 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 64365188 Problem Type 2 diabetes mellitus with other specified complication E11.69 Active 690240701957 Problem Essential hypertension I10 Active 77330764 Problem Coronary artery disease involving red cliff coronary artery of red cliff heart without angina pectoris I25.10 Active 0278007116360 Problem Hyperlipidemia, unspecified E78.5 Active 63987708 Problem emt intermediate current use of insulin Z79.4 Active 997399032 ALLERGIES No Information ENCOUNTERS Encounter Location Date Diagnosis [facility] [id number] [place] [address] 42897- 8388 Apr, [facility] [address] [address]08[address] Mar, [facility] [id number] [place] [address]114 [address]8561 Mar, Acute contact dermatitis L25.9 [facility] [id number] [place] [address] 18383- 3067 Mar, [facility] [id number] [place] [address] 69361- 3898 Mar, [facility] [address] 9[address]90- 7180 Mar, [facility] [id number] [place] [address] 59204- 8209 Mar, [facility] [address] 73684- 6632 Mar, Encounter for immunization Z23 [place] [id number] [place] [address] 66414- 4101 Mar, [place] [id number] [place] [address] 56356- 5373 Mar, Type 2 diabetes mellitus with other circulatory complications E11.59 and BMI 40.0-44.9, adult Z68.41 [place] [address] 30286- 1324 Feb, [place] [address] [id number] [place] [address] 51650- 9151 Feb, [place] [address] 37320- 6184 Feb, [place] [address] [id number] [place] [address] 24366- 7994 Feb, BMI 40.0-44.9, adult Z68.41 ; Type 2 diabetes mellitus with other circulatory complications E11.59 ; 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 ; Hyperlipidemia, unspecified E78.5 ; Essential hypertension I10 and Coronary artery disease involving red cliff coronary artery of red cliff heart without angina pectoris I25.10 [facility] [place] [id number] [place] [address] 97059 [address]8621 Jul, Oral abscess K12.2 and BMI 40.0-44.9, adult Z68.41 [facility] [place] [id number] [place] [address] 19693 -5115 Jan, Blister of left lower extremity, initial encounter S80.822A [facility] [address] [address]9679 Jun, Cellulitis of left lower extremity L03.116 and Cellulitis of right lower limb L03.115 [facility] [place] [id number] [place] [address]32 [address]1960 Jun, Cough 786.2 [facility] [place] [address] N [facility] [id number] [place] [address] Jun, Acute non-recurrent maxillary sinusitis J01.00 IMMUNIZATIONS No Known Immunizations SOCIAL HISTORY Never Assessed REASON FOR VISIT medication refill PLAN OF CARE VITAL SIGNS MEDICATIONS Medication Instructions Dosage Frequency Start Date End Date Duration Status Omeprazole 40 mg Orally twice a day 1 capsule 12h 4 days Active RESULTS No Results PROCEDURES No [...] retina 2014 Surgical History cataract surgery bilaterally 2014 Hospitalization History for heart surgery 2012
--- OUTSIDE RECORDS SUMMARY | 2018-08-19 07:18 | XMS REPORT ---
Author Author ZACK BOYD Organization [facility] Address [address] 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 44584467 Problem Type 2 diabetes mellitus with other specified complication E11.69 Active 876359956418 Problem Essential hypertension I10 Active 22471435 Problem Coronary artery disease involving [place] coronary artery of [place] heart without angina pectoris I25.10 Active 0637330979609 Problem Hyperlipidemia, unspecified E78.5 Active 36030117 Problem 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 Active 567885990 ALLERGIES No Information ENCOUNTERS Encounter Location Date Diagnosis [facility] [id number] [place] [address] 20955- 8333 Apr, [facility] [address] [address] Apr, [facility] [id number] [place] [address] 07873- 3802 Mar, [facility] [id number] [place] [address] 48296 -3536 Mar, Acute contact dermatitis L25.9 [facility] [id number] [place] [address] 08974- 8298 Mar, [facility] [id number] [place] [address] 81506- 0870 Mar, [facility] [id number] [place] [address] 27118- 3378 Mar, [facility] [address] 53978- 4260 Mar, [place] [address] [address] Mar, Encounter for immunization Z23 [place] [id number] [place] [address] 41234- 3382 Mar, [place] [id number] [place] [address] 74546- 9957 Mar, Type 2 diabetes mellitus with other circulatory complications E11.59 and BMI 40.0-44.9, adult Z68.41 [place] [id number] [place] [address] 02862- 2962 Feb, [place] [id number] [place] [address] 22250- 0387 Feb, [place] [id number] [place] [address] 10879- 2680 Feb, [place] [id number] [place] [address] 40640- 7271 Feb, BMI 40.0-44.9, adult Z68.41 ; Type 2 diabetes mellitus with other circulatory complications E11.59 ; 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 ; Hyperlipidemia, unspecified E78.5 ; Essential hypertension I10 and Coronary artery disease involving [place] coronary artery of [place] heart without angina pectoris I25.10 [facility] [address] [place] [address] 34409 [address]0073 Jul, Oral abscess K12.2 and BMI 40.0-44.9, adult Z68.41 [facility] [id number] [address] Jan, Blister of left lower extremity, initial encounter S80.822A [facility] [place] [id number] [place] [address] 45434 -0098 Jun, Cellulitis of left lower extremity L03.116 and Cellulitis of right lower limb L03.115 [facility] [id number] [address] Jun, Cough 786.2 [facility] [address] [facility] [id number] [place] [address] Jun, Acute non-recurrent maxillary sinusitis J01.00 IMMUNIZATIONS No Known Immunizations SOCIAL HISTORY Never Assessed REASON FOR VISIT BS f/u PLAN OF CARE VITAL SIGNS MEDICATIONS Unknown [...]
--- OUTSIDE RECORDS SUMMARY | 2018-08-19 07:18 | XMS REPORT ---
Author Author ZACK BOYD Organization [facility] Address [address] 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 98426285 Problem Type 2 diabetes mellitus with other specified complication E11.69 Active 350864728150 Problem Essential hypertension I10 Active 64662259 Problem Coronary artery disease involving [place] coronary artery of [place] heart without angina pectoris I25.10 Active 8863579138221 Problem Hyperlipidemia, unspecified E78.5 Active 86640830 Problem terminal operations manager current use of insulin Z79.4 Active 256335443 ALLERGIES No Information ENCOUNTERS Encounter Location Date Diagnosis [place] [address] [address]- 9536 Apr, [place] [address] 27493- 8449 Mar, [place] [address] 91099- 9569 Mar, [place] [address] 93575- 1439 Mar, Encounter for immunization Z23 [place] [address] 54414- 9915 Mar, [place] [address] 40139- 3691 Mar, Type 2 diabetes mellitus with other circulatory complications E11.59 and BMI 40.0-44.9, adult Z68.41 [place] [address] 92938- 1803 Feb, [facility] [id number] [place] [address] 90094- 0195 Feb, [place] [address] 41282- 1026 Feb, [place] [address] [place] [address] [id number] [place] [address] 24938- 6704 Feb, BMI 40.0-44.9, adult Z68.41 ; Type 2 diabetes mellitus with other circulatory complications E11.59 ; terminal operations manager current use of insulin Z79.4 ; Hyperlipidemia, unspecified E78.5 ; Essential hypertension I10 and Coronary artery disease involving [place] coronary artery of [place] heart without angina pectoris I25.10 [facility] IN [place] [id number] [place] [address]907 -6998 Jul, Oral abscess K12.2 and BMI 40.0-44.9, adult Z68.41 [facility] WALK IN [address] [address] Jan, Blister of left lower extremity, initial encounter S80.822A [facility] IN [address] 7[address] -5079 Jun, Cellulitis of left lower extremity L03.116 and Cellulitis of right lower limb L03.115 [facility] IN [place] [id number] [place] [address]116 -3741 Jun, Cough 786.2 [facility] WALK IN [address] 35623 -[address] Jun, Acute non-recurrent maxillary sinusitis J01.00 IMMUNIZATIONS No Known Immunizations SOCIAL HISTORY Never Assessed REASON FOR VISIT New pharmacy PLAN OF CARE VITAL SIGNS MEDICATIONS Medication Instructions Dosage Frequency Start Date End Date Duration Status Omeprazole 40 mg Orally Once a day 1 capsule 24h 30 days Active Levothyroxine Sodium 88 MCG Orally Once a day 1 tablet on an empty stomach in the morning 24h 30 days Active Mupirocin 2 % Externally Three times a day 1 application to affected area 8h 30 days Active Furosemide 40 mg Orally Once a day 1 tablet 24h 30 days Active Gabapentin 600 MG Orally 3 times a day 1 tablet 8h 04 Feb, 2018 30 days Active Losartan Potassium-HCTZ 100-12.5 MG Orally Once a day 1 tablet 24h 30 days Active Lipitor 20 mg Orally Once a day 1 tablet 24h 30 days Active Norvasc 5 mg Orally Once a day 1 tablet 24h 30 days Active Metformin HCl 1000 MG Orally Twice a day 1 tablet with meals 12h 30 days Active Spironolactone 50 mg Orally Once a day 1 tablet 24h 30 days Active RESULTS No Results PROCEDURES No [...]
--- OUTSIDE RECORDS SUMMARY | 2018-08-19 07:18 | XMS REPORT ---
Author Author ZACK BOYD Organization [facility] Address [address] [place] [address] Care Team Providers Care Electric Accounting Machine Operator Name Role Phone ZACK BOYD Unavailable PROBLEMS Type Condition ICD9-CM Code ROA88-DN Code Onset Dates Condition Status SNOMED Code Problem Essential hypertension I10 Active 97266728 Problem Chronic GERD K21.9 Active 025443857 Problem Coronary artery disease involving [place] coronary artery of [place] heart without angina pectoris I25.10 Active 6713952738338 Problem Hyperlipidemia, unspecified E78.5 Active 90579869 Problem intermission coordinator current use of insulin Z79.4 Active 597725945 Problem 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 11488983 Problem Type 2 diabetes mellitus with other specified complication E11.69 Active 822282396059 ALLERGIES No Information ENCOUNTERS Encounter Location Date Diagnosis [facility] [id number] [place] [address] 10428- 1631 May, [facility] [id number] [place] [address] 83013- 1627 Apr, [facility] [id number] [place] [address] 75603- 0829 Apr, [facility] [id number] [place] [address] 60404- 6503 Apr, Chronic GERD K21.9 [facility] [id number] [place] [address] 46485- 7189 Apr, [facility] [address] [address]78- 0008 Mar, [facility] [id number] [place] [address] 85212 -9193 Mar, Acute contact dermatitis L25.9 [facility] [address] [address] Mar, [facility] [id number] [place] [address] 99246- 7723 Mar, [facility] [id number] [place] [address] 71942- 6013 Mar, [facility] [address] 90407- 4639 Mar, [facility] [id number] [place] [address] 75742- 1263 Mar, Encounter for immunization Z23 [facility] [address] [id number] [place] [address] 86731- 9337 Mar, [facility] [id number] [place] [address] 93475- 9235 Mar, Type 2 diabetes mellitus with other circulatory complications E11.59 and BMI 40.0-44.9, adult Z68.41 [facility] [id number] [place] [address] 01601- 6371 Feb, [facility] [id number] [place] [address] 06812- 4130 Feb, [facility] [id number] [place] [address] 57979- 0159 Feb, [facility] [id number] [place] [address] 41251- 5700 Feb, BMI 40.0-44.9, adult Z68.41 ; Type 2 diabetes mellitus with other circulatory complications E11.59 ; intermission coordinator current use of insulin Z79.4 ; Hyperlipidemia, unspecified E78.5 ; Essential hypertension I10 and Coronary artery disease involving [place] coronary artery of [place] heart without angina pectoris I25.10 [facility] [address] [address] Jul, Oral abscess K12.2 and BMI 40.0-44.9, adult Z68.41 [facility] [address] [facility] [id number] [address] Jan, Blister of left lower extremity, initial encounter S80.822A [facility] [address] [place] [id number] [address] Jun, Cellulitis of left lower extremity L03.116 and Cellulitis of right lower limb L03.115 [facility] [address] [address] Jun, Cough 786.2 [facility] [address] [id number] [address] Jun, Acute non-recurrent maxillary sinusitis J01.00 IMMUNIZATIONS No Known Immunizations SOCIAL HISTORY Never Assessed REASON FOR VISIT Needs referral PLAN OF CARE VITAL SIGNS MEDICATIONS Unknown [...]
--- OUTSIDE RECORDS SUMMARY | 2018-08-19 07:19 | XMS REPORT ---
Author Author ZACK BOYD Organization [facility] Address [address] 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 43177718 Problem Type 2 diabetes mellitus with other specified complication E11.69 Active 132484523683 Problem Essential hypertension I10 Active 94260138 Problem Coronary artery disease involving [place] coronary artery of [place] heart without angina pectoris I25.10 Active 6359827627120 Problem Hyperlipidemia, unspecified E78.5 Active 83752239 Problem exterminator helper current use of insulin Z79.4 Active 163905589 ALLERGIES No Information ENCOUNTERS Encounter Location Date Diagnosis [facility] [id number] [place] [address] 62104- 9126 Mar, [facility] [address] [address]- 4618 Feb, [facility] [id number] [place] [address] 11793- 9707 Feb, [facility] [id number] [place] [address] 33693- 3425 Feb, [facility] [id number] [place] [address] 40394- 4117 Feb, BMI 40.0-44.9, adult Z68.41 ; Type 2 diabetes mellitus with other circulatory complications E11.59 ; senior care current use of insulin Z79.4 ; Hyperlipidemia, unspecified E78.5 ; Essential hypertension I10 and Coronary artery disease involving [place] coronary artery of [place] heart without angina pectoris I25.10 [facility] [id number] [place] [address] 45015 -8174 Jul, Oral abscess K12.2 and BMI 40.0-44.9, adult Z68.41 [facility] [address], [place] [address] Jan, Blister of left lower extremity, initial encounter S80.822A [facility] [address] [place] [address] [address] Jun, Cellulitis of left lower extremity L03.116 and Cellulitis of right lower limb L03.115 [facility] [address] [place] [address] Jun, Cough 786.2 [facility]ARE [address] [place] [address] Jun, Acute non-recurrent maxillary sinusitis J01.00 IMMUNIZATIONS [...]
--- OUTSIDE RECORDS SUMMARY | 2018-08-19 07:19 | XMS REPORT ---
Author Author ZACK BOYD Organization [facility] Address [address] 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 63729803 Problem Type 2 diabetes mellitus with other specified complication E11.69 Active 946551903819 Problem Essential hypertension I10 Active 49622675 Problem Coronary artery disease involving [place] coronary artery of [place] heart without angina pectoris I25.10 Active 5429637805547 Problem Hyperlipidemia, unspecified E78.5 Active 63185907 Problem intermodal dispatcher current use of insulin Z79.4 Active 099128389 ALLERGIES No Information ENCOUNTERS Encounter Location Date Diagnosis [place] [address] [address]361 Apr, [place] [address] 54815- 3644 Mar, [place] [address] 830[address]- 2253 Mar, [place] [address] [address]- 7934 Mar, Encounter for immunization Z23 [place] [address] 30198- 0673 Mar, [place] [address] 060[address]- 7394 Mar, Type 2 diabetes mellitus with other circulatory complications E11.59 and BMI 40.0-44.9, adult Z68.41 [place] [address] [address]22- 0924 Feb, [facility] [address] [place] [id number] [place] [address] 70855- 8959 Feb, [facility] [address] [address]81- 4606 Feb, [place] [address] 07082- 3532 Feb, BMI 40.0-44.9, adult Z68.41 ; Type 2 diabetes mellitus with other circulatory complications E11.59 ; intermodal dispatcher current use of insulin Z79.4 ; Hyperlipidemia, unspecified E78.5 ; Essential hypertension I10 and Coronary artery disease involving [place] coronary artery of [place] heart without angina pectoris I25.10 [facility] WALK IN [address] [address] Jul, Oral abscess K12.2 and BMI 40.0-44.9, adult Z68.41 [facility] WALK IN [address] [address] Jan, Blister of left lower extremity, initial encounter S80.822A [facility] WALK IN [address] [address] Jun, Cellulitis of left lower extremity L03.116 and Cellulitis of right lower limb L03.115 [facility] WALK IN [address] [address] Jun, Cough 786.2 [facility] WALK IN [address] [address] Jun, Acute non-recurrent maxillary sinusitis J01.00 IMMUNIZATIONS No Known Immunizations SOCIAL HISTORY Never Assessed REASON FOR VISIT Blood Sugars PLAN OF CARE VITAL SIGNS MEDICATIONS Unknown [...] retina 2015 Surgical History cataract surgery bilaterally 2014 Hospitalization History for heart surgery 2012
--- OUTSIDE RECORDS SUMMARY | 2018-08-19 07:19 | XMS REPORT ---
Author Author ZACK BOYD Organization [facility] Address [address] 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 33100403 Problem Type 2 diabetes mellitus with other specified complication E11.69 Active 138004918427 Problem Essential hypertension I10 Active 74719786 Problem Coronary artery disease involving [place] coronary artery of [place] heart without angina pectoris I25.10 Active 4458487025550 Problem Hyperlipidemia, unspecified E78.5 Active 98678833 Problem termite treater current use of insulin Z79.4 Active 921938795 ALLERGIES No Information ENCOUNTERS Encounter Location Date Diagnosis [place] [address] [address] Apr, [place] [address] [address] Mar, Encounter for immunization Z23 [place] [address] [address] Mar, [place] [address] [address] Mar, Type 2 diabetes mellitus with other circulatory complications E11.59 and BMI 40.0-44.9, adult Z68.41 [place] [address] [address] Feb, [place] [address] [address] Feb, [place] [address] [address] Feb, [facility] [address] [address] Feb, BMI 40.0-44.9, adult Z68.41 ; Type 2 diabetes mellitus with other circulatory complications E11.59 ; correction current use of insulin Z79.4 ; Hyperlipidemia, unspecified E78.5 ; Essential hypertension I10 and Coronary artery disease involving [place] coronary artery of [place] heart without angina pectoris I25.10 [facility] [address] [place] [id number] [place] [address] Jul, Oral abscess K12.2 and BMI 40.0-44.9, adult Z68.41 [facility] [address] [address] Jan, Blister of left lower extremity, initial encounter S80.822A [facility] [address] [address] Jun, Cellulitis of left lower extremity L03.116 and Cellulitis of right lower limb L03.115 [facility] [place] [id number] [place] [address] Jun, Cough 786.2 [facility] [place] [id number] [place] [address] Jun, Acute non-recurrent maxillary sinusitis J01.00 IMMUNIZATIONS No Known Immunizations SOCIAL HISTORY Never Assessed REASON FOR VISIT DM ED Scheduled PLAN OF CARE VITAL SIGNS MEDICATIONS Unknown [...] bilaterally 2015 Hospitalization History for heart surgery 2013
--- OUTSIDE RECORDS SUMMARY | 2018-08-19 07:19 | XMS REPORT ---
Author Author ZACK BOYD Organization [facility] Address [address] 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 60416852 Problem Type 2 diabetes mellitus with other specified complication E11.69 Active 385845713743 Problem Essential hypertension I10 Active 13938213 Problem Coronary artery disease involving [place] coronary artery of [place] heart without angina pectoris I25.10 Active 1991147250210 Problem Hyperlipidemia, unspecified E78.5 Active 17056887 Problem terminal block assembler current use of insulin Z79.4 Active 290135355 ALLERGIES No Information ENCOUNTERS Encounter Location Date Diagnosis [place] [address] [address] Apr, [place] [address] [address] Mar, [place] [address] [address] Mar, [place] [address] [address] Mar, Encounter for immunization Z23 [place] [address] [address] Mar, [place] [address] [address] Mar, Type 2 diabetes mellitus with other circulatory complications E11.59 and BMI 40.0-44.9, adult Z68.41 [place] [address] [address] Feb, [facility] [address] [place] [id number] [place] [address] Feb, [facility] [address] [address] Feb, [place] [address] [place] [id number] [place] [address] Feb, BMI 40.0-44.9, adult Z68.41 ; Type 2 diabetes mellitus with other circulatory complications E11.59 ; terminal block assembler current use of insulin Z79.4 ; Hyperlipidemia, unspecified E78.5 ; Essential hypertension I10 and Coronary artery disease involving [place] coronary artery of [place] heart without angina pectoris I25.10 [facility] [place] [id number] [place] [address] Jul, Oral abscess K12.2 and BMI 40.0-44.9, adult Z68.41 [facility] [address] [address] Jan, Blister of left lower extremity, initial encounter S80.822A [facility] [address] [address] Jun, Cellulitis of left lower extremity L03.116 and Cellulitis of right lower limb L03.115 [facility] [address] [address] Jun, Cough 786.2 [facility] [address] [address] Jun, Acute non-recurrent maxillary sinusitis J01.00 IMMUNIZATIONS Vaccine Route Administration Date Status FLUZONE HIGH DOSE 0.5ML (65 & UP) 2017 IM Intramuscular Mar 13, 2018 Administered SOCIAL HISTORY Never Assessed REASON FOR VISIT Flu shot PLAN OF CARE VITAL SIGNS MEDICATIONS Unknown Medications RESULTS No Results PROCEDURES Procedure Date Ordered Result Body Site FLUZONE HIGH DOSE (65 & UP) 2018 Mar 13, 2018 ADMN FLU VAC NO FEE SCHED SAME DAY Mar 13, 2018 SINGLE IMMUNIZATION ADMIN Mar 13, 2018 INSTRUCTIONS MEDICATIONS ADMINISTERED No Known Medications [...]
--- OUTSIDE RECORDS SUMMARY | 2018-08-19 07:19 | XMS REPORT ---
Author Author ZACK BOYD Organization [facility] Address [address] 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 33509743 Problem Type 2 diabetes mellitus with other specified complication E11.69 Active 008564861067 Problem Essential hypertension I10 Active 68361120 Problem Coronary artery disease involving [place] coronary artery of [place] heart without angina pectoris I25.10 Active 2392227679460 Problem Hyperlipidemia, unspecified E78.5 Active 92893467 Problem automobile brakes 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 Active 810767642 ALLERGIES No Information ENCOUNTERS Encounter Location Date Diagnosis [place] [address] [address] Apr, [place] [address] [address] Mar, [place] [address] [address] Mar, [place] [address] [address] Mar, Encounter for immunization Z23 [place] [address] [address] Mar, [place] [address] [address] Mar, Type 2 diabetes mellitus with other circulatory complications E11.59 and BMI 40.0-44.9, adult Z68.41 [place] [address] [address] Feb, [facility] [address] [place] [id number] [place] [address] Feb, [place] [address] [address] Feb, [place] [address] [address] Feb, BMI 40.0-44.9, adult Z68.41 ; Type 2 diabetes mellitus with other circulatory complications E11.59 ; automobile brakes 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 ; Hyperlipidemia, unspecified E78.5 ; Essential hypertension I10 and Coronary artery disease involving [place] coronary artery of [place] heart without angina pectoris I25.10 [facility] [address] [address] Jul, Oral abscess K12.2 and BMI 40.0-44.9, adult Z68.41 [facility] [address] [address] Jan, Blister of left lower extremity, initial encounter S80.822A [facility] [address] [address] Jun, Cellulitis of left lower extremity L03.116 and Cellulitis of right lower limb L03.115 [facility] [address] [address] Jun, Cough 786.2 [facility] [address] [address] Jun, Acute non-recurrent maxillary sinusitis J01.00 IMMUNIZATIONS No Known Immunizations SOCIAL HISTORY Never Assessed REASON FOR VISIT 1 wk f/u DM Ed PLAN OF CARE VITAL SIGNS MEDICATIONS Unknown [...]
--- OUTSIDE RECORDS SUMMARY | 2018-08-19 07:19 | XMS REPORT ---
Author Author DOMINICK ARREGUIN Organization [facility] Address [address] [place] [address] Care Team Providers Care Stone Rigger Name Role Phone DOMINICK ARREGUIN Unavailable PROBLEMS Unknown Problems ALLERGIES Substance Reaction Event Type Date Status SulfADIAZINE nausea Drug Allergy Jan, Active Codeine Sulfate nausea Drug Allergy Jan, Active ENCOUNTERS Encounter Location Date Diagnosis [facility] [address] [place] [address] Jul, Oral abscess K12.2 and BMI 40.0-44.9, adult Z68.41 [facility] [address] [place] [id number] [place] [address] Jan, Blister of left lower extremity, initial encounter S80.822A [facility] [address] [place], [place] [id number] [place] [address] Jun, Cellulitis of left lower extremity L03.116 and Cellulitis of right lower limb L03.115 [facility] [address] [place] [id number] [place] [address] Jun, Cough 786.2 [facility] [address] [place] [address] [place] [address] Jun, Acute non-recurrent maxillary sinusitis J01.00 IMMUNIZATIONS No Known Immunizations SOCIAL HISTORY Never Assessed REASON FOR VISIT blister on left leg started last night JStrasserRN PLAN OF CARE Activity Details Follow Up prn Reason: VITAL SIGNS Height 68 in 2017-02-03 Weight 294.2 lbs 2017-02-03 Temperature 98.0 degrees Fahrenheit 2017-02-03 Heart Rate 98 bpm 2017-02-03 Respiratory Rate 20 2017-02-03 BMI 44.73 kg/m2 2017-02-03 Blood pressure systolic 126 mmHg 2017-02-03 Blood pressure diastolic 80 mmHg 2017-02-03 MEDICATIONS Medication Instructions Dosage Frequency Start Date End Date Duration Status Spironolactone 50 MG Orally Once a day 1 tablet 24h Active Omeprazole 40 MG Orally Once a day 1 capsule 24h Active Baby Aspirin 81 MG Orally Once a day 1 tablet 24h Active Levothyroxine Sodium 75 MCG Orally Once a day 1 tablet on an empty stomach in the morning 24h Active Keflex 500 MG Orally every 8 hrs 1 capsule 8h Jan, Feb, 7 days Active Flecainide Acetate 100 MG Active Losartan Potassium-HCTZ 100-12.5 MG Orally Once a day 1 tablet 24h Active Furosemide 40 MG Orally Once a day 1 tablet 24h Active Glimepiride 4 MG Orally Once a day 1 tablet with breakfast or the first main meal of the day 24h Active Metformin HCl 1000 MG Orally Twice a day 1 tablet with meals 12h Active Multivitamin Men - Active Silvadene 1 % Externally Once a day 1 application to affected area 24h Jan, 2 Feb, 2017 7 days Active Lipitor 20 MG Orally Once a day 1 tablet 24h Active RESULTS No Results PROCEDURES Procedure Date Ordered Result Body Site [facility] VISIT ESTABLISHED PATIENT Feb 03, 2017 INSTRUCTIONS MEDICATIONS ADMINISTERED No Known Medications MEDICAL (GENERAL) HISTORY Type Description Date Medical History hypertension Medical History hx of colon ca Medical History heart cath Medical History diabetic Surgical History bilateral knee scope 1992 1998 [...]
--- OUTSIDE RECORDS SUMMARY | 2018-08-19 07:19 | XMS REPORT ---
Author Author ZACK BOYD Organization [facility] [place] Address [address] 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 19429869 Problem Type 2 diabetes mellitus with other specified complication E11.69 Active 592854629501 Problem Essential hypertension I10 Active 80751019 Problem Coronary artery disease involving [place] coronary artery of [place] heart without angina pectoris I25.10 Active 0291350894473 Problem Hyperlipidemia, unspecified E78.5 Active 78226098 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 350587600 ALLERGIES Substance Reaction Event Type Date Status SulfADIAZINE nausea Drug Allergy Feb, Active Codeine Sulfate nausea Drug Allergy Feb, Active ENCOUNTERS Encounter Location Date Diagnosis [facility] [place] [address] [place] [id number] [place] [address] Mar, [facility] [place] [address] [place] [id number] [place] [address] Feb, [facility] [place] [address] [place] [id number] [place] [address] Feb, [facility] [place] [address] [place] [id number] [place] [address] Feb, [facility] [place] [address] [place] [id number] [place] [address] Feb, BMI 40.0-44.9, adult Z68.41 ; Type 2 diabetes mellitus with other circulatory complications E11.59 ; [facility] current use of insulin Z79.4 ; Hyperlipidemia, unspecified E78.5 ; Essential hypertension I10 and Coronary artery disease involving [place] coronary artery of [place] heart without angina pectoris I25.10 [facility] [address], [place] [address] Jul, Oral abscess K12.2 and BMI 40.0-44.9, adult Z68.41 [facility] [address] [place] [address], [place] [address] Jan, Blister of left lower extremity, initial encounter S80.822A [facility] [address] [place] [id number] [address] Jun, Cellulitis of left lower extremity L03.116 and Cellulitis of right lower limb L03.115 [facility] [address] [place] [id number] [place] [address] Jun, Cough 786.2 [facility] [place] [id number] [place] [address] Jun, Acute non-recurrent maxillary sinusitis J01.00 IMMUNIZATIONS No Known Immunizations SOCIAL HISTORY Never Assessed REASON FOR VISIT Establish Murali zhao rn PLAN OF CARE Activity Details Follow Up 4 Weeks Reason:DMT2 VITAL SIGNS Height 68 in 2018-02-12 Weight 280 lbs 2018-02-12 Temperature 98 degrees Fahrenheit 2018-02-12 Heart Rate 86 bpm 2018-02-12 Respiratory Rate 22 2018-02-12 Oximetry 98 % 2018-02-12 BMI 42.57 kg/m2 2018-02-12 Blood pressure systolic 132 mmHg 2018-02-12 Blood pressure diastolic 84 mmHg 2018-02-12 MEDICATIONS Medication Instructions Dosage Frequency Start Date End Date Duration Status Norvasc 5 MG Orally Once a day 1 tablet 24h Active Omeprazole 40 MG Orally Once a day 1 capsule 24h Active Gabapentin 600 MG Orally 3 times a day 1 tablet 8h Feb, Active Novolin N 100 UNIT/ML Subcutaneous Once a day 40 24h Active Multivitamin Men - Active Flecainide Acetate 100 MG Active Losartan Potassium-HCTZ 100-12.5 MG Orally Once a day 1 tablet 24h Active Glimepiride 4 MG Orally Once a day 1 tablet with breakfast or the first main meal of the day 24h Not-Taking Mupirocin 2 % Externally Three times a day 1 application to affected area 8h Active Baby Aspirin 81 MG Orally Once a day 1 tablet 24h Active Spironolactone 50 MG Orally Once a day 1 tablet 24h Active Ibuprofen 800 MG Orally Three times a day 1 tablet with food or milk as needed 8h Active Metformin HCl 1000 MG Orally Twice a day 1 tablet with meals 12h Active Furosemide 40 MG Orally Once a day 1 tablet 24h Active Lipitor 20 MG Orally Once a day 1 tablet 24h Active Levothyroxine Sodium 88 MCG Orally Once a day 1 tablet on an empty stomach in the morning 24h Active RESULTS No Results PROCEDURES Procedure Date Ordered Result Body Site EKG, TRACING (IN-HOUSE) 2018-02-12 RBBB, known CAD GLYCATED HEMOGLOBIN TEST Feb 12, 2018 [facility] VISIT ESTABLISHED PATIENT Feb 12, 2018 VENIPUNCT, ROUTINE* Feb 12, 2018 MICROALBUMIN, SEMIQUANT Feb 12, 2018 LAB NOT BILLED BY [facility] Feb 12, 2018 ELECTROCARDIOGRAM, TRACING Feb 12, 2018 URINALYSIS, AUTO, W/O SCOPE Feb 12, 2018 INSTRUCTIONS MEDICATIONS ADMINISTERED No Known Medications [...]
--- OUTSIDE RECORDS SUMMARY | 2018-08-19 07:19 | XMS REPORT ---
Author Author ZACK BOYD Organization [facility] Address [address] 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 06292754 Problem Type 2 diabetes mellitus with other specified complication E11.69 Active 959894782562 Problem Essential hypertension I10 Active 78599420 Problem Coronary artery disease involving [place] coronary artery of [place] heart without angina pectoris I25.10 Active 0268176682250 Problem Hyperlipidemia, unspecified E78.5 Active 05364986 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 666188569 ALLERGIES No Information ENCOUNTERS Encounter Location Date Diagnosis [place] [address] [address] Apr, [place] [address] [address] Mar, Encounter for immunization Z23 [place] [address] [address] Mar, [place] [address] [address] Mar, Type 2 diabetes mellitus with other circulatory complications E11.59 and BMI 40.0-44.9, adult Z68.41 [place] [address] [address] Feb, [place] [address] [address] Feb, [place] [address] [address] Feb, [facility] [address] [address] Feb, BMI 40.0-44.9, adult Z68.41 ; Type 2 diabetes mellitus with other circulatory complications E11.59 ; retirement current use of insulin Z79.4 ; Hyperlipidemia, unspecified E78.5 ; Essential hypertension I10 and Coronary artery disease involving [place] coronary artery of [place] heart without angina pectoris I25.10 [facility] [address] [place] [id number] [place] [address] Jul, Oral abscess K12.2 and BMI 40.0-44.9, adult Z68.41 [facility] [address] [address] Jan, Blister of left lower extremity, initial encounter S80.822A [facility] [address] [address] Jun, Cellulitis of left lower extremity L03.116 and Cellulitis of right lower limb L03.115 [facility] [place] [id number] [place] [address] Jun, Cough 786.2 [facility] [place] [id number] [place] [address] Jun, Acute non-recurrent maxillary sinusitis J01.00 IMMUNIZATIONS No Known Immunizations SOCIAL HISTORY Never Assessed REASON FOR VISIT DM ED PLAN OF CARE VITAL SIGNS MEDICATIONS Unknown [...]
--- OUTSIDE RECORDS SUMMARY | 2018-08-19 07:21 | XMS REPORT | Continuity of Care Document ---
Author Author [facility] Organization [facility] Address Unknown Phone Unavailable Allergies Active Description Code Type Severity Reaction Onset Reported/Identified Relationship to Patient Clinical Status Yes codeine [id number] Drug Allergy Unknown N/V ABD PAIN 08/16/2017 Yes Sulfa (Sulfonamide Antibiotics) [id number] Drug Allergy Unknown N/V 2017 Medications There is no data. Problems Date [...] UNSPECIFIED, WITHOUT BLEEDING 12/27/2015 DOUGLAS HART, JENNIFER Tavarez Ot Z09 ENCNTR FOR F/U EXAM AFT TRTMT FOR COND O 12/28/2015 DOUGLAS HART, JENNIFER Corby Ot K29.70 GASTRITIS, UNSPECIFIED, WITHOUT BLEEDING 12/28/2015 [...] Tavarez Ot V72.84 EXAM PRE-OPERATIVE NOS 11/22/2016 ANDERSON CARTER MD Ot 427.31 ATRIAL FIBRILLATION 12/14/2016 ANDERSON CARTER MD Ot I10 ESSENTIAL (PRIMARY) HYPERTENSION 02/01/2017 ARMANDO DPM, VERA Q Ot E11.9 TYPE 2 DIABETES MELLITUS WITHOUT COMPLIC 02/23/2017 ARMANDO DPM, VERA Q Ot E11.9 TYPE 2 DIABETES MELLITUS WITHOUT COMPLIC 02/23/2017 KARRIENDER , CINDY S Ot E11.65 TYPE 2 DIABETES MELLITUS WITH HYPERGLYCE 02/23/2017 KARRIENDER DO, CINDY S Ot E78.2 MIXED HYPERLIPIDEMIA 02/23/2017 KARRIENDER , CINDY S Ot I10 ESSENTIAL (PRIMARY) HYPERTENSION 04/04/2017 LALY, AGATA SENIOR ANALYST PROGRAMMER Ot E03.9 HYPOTHYROIDISM, UNSPECIFIED 04/04/2017 LALY, AGATA SENIOR ANALYST PROGRAMMER Ot E11.9 TYPE 2 DIABETES MELLITUS WITHOUT COMPLIC 04/04/2017 LALY, AGATA SENIOR ANALYST PROGRAMMER Ot E78.00 PURE HYPERCHOLESTEROLEMIA, UNSPECIFIED 04/04/2017 LALY, AGATA SENIOR ANALYST PROGRAMMER Ot F41.9 ANXIETY DISORDER, UNSPECIFIED 04/04/2017 LALY, AGATA SENIOR ANALYST PROGRAMMER Ot I10 ESSENTIAL (PRIMARY) HYPERTENSION 04/04/2017 LALY, AGATA SENIOR ANALYST PROGRAMMER Ot K21.9 GASTRO-ESOPHAGEAL REFLUX DISEASE WITHOUT 04/04/2017 LALY, AGATA SENIOR ANALYST PROGRAMMER Ot S40.011A CONTUSION OF RIGHT SHOULDER, INITIAL ENC 04/04/2017 LALY AGATA SHARPEP Ot S80.01XA CONTUSION OF RIGHT KNEE, INITIAL ENCOUNT 04/04/2017 LALYAGATA LamP Ot S80.211A ABRASION, RIGHT KNEE, INITIAL ENCOUNTER 04/04/2017 LALYAGATA Lam SENIOR ANALYST PROGRAMMER Ot W22.09XA STRIKING AGAINST OTHER STATIONARY OBJECT 04/04/2017 LALYAGATA LamP Ot Z23 ENCOUNTER FOR IMMUNIZATION 04/04/2017 LALYAGATA LamP Ot Z79.82 SOCIAL WORKER PSYCHIATRIC (CURRENT) USE OF ASPIRIN 04/04/2017 LALYAGATA LamP Ot Z79.84 CUSTODIAL (CURRENT) USE OF ORAL HYPOGLYC 04/04/2017 LALYAGATA [...] LamP Ot E78.00 PURE HYPERCHOLESTEROLEMIA, UNSPECIFIED 04/06/2017 LALYAGATA LamP Ot F41.9 ANXIETY DISORDER, UNSPECIFIED 04/06/2017 LALYAGATA [...] Ot Z23 ENCOUNTER FOR IMMUNIZATION 04/06/2017 AGATA RUFIFNP Ot Z79.82 SOCIAL WORKER PSYCHIATRIC (CURRENT) USE OF ASPIRIN 04/06/2017 AGATA RUFFINP Ot Z79.84 CUSTODIAL (CURRENT) USE OF ORAL HYPOGLYC 04/06/2017 AGATA RUFFINP Ot Z85.038 PERSONAL HISTORY OF MALIGNANT NEOPLASM O 04/06/2017 LALYAGATA LamP Ot Z86.14 PERSONAL HISTORY OF METHICILLIN RESIS ST 04/06/2017 AGATA RUFFINP Ot Z87.19 PERSONAL HISTORY OF OTHER DISEASES OF TH 04/06/2017 LALYAGATA LamP Ot Z90.49 ACQUIRED ABSENCE OF OTHER SPECIFIED PART 04/06/2017 AGATA RUFFINP Ot E03.9 HYPOTHYROIDISM, UNSPECIFIED 04/06/2017 AGATA RUFFINP [...] FOR IMMUNIZATION 04/06/2017 AGATA RUFFINP Ot Z79.82 SOCIAL WORKER PSYCHIATRIC (CURRENT) USE OF ASPIRIN 04/06/2017 AGATA RUFFINP Ot Z79.84 SOCIAL WORKER PSYCHIATRIC (CURRENT) USE OF ORAL HYPOGLYC 04/06/2017 AGATA RUFFINP Ot Z85.038 PERSONAL HISTORY OF MALIGNANT NEOPLASM O 04/06/2017 AGATA RUFFINP Ot Z86.14 PERSONAL HISTORY OF METHICILLIN RESIS ST 04/06/2017 AGATA RUFFINP Ot Z87.19 PERSONAL HISTORY OF OTHER DISEASES OF TH 04/06/2017 AGATA RUFFINP Ot Z90.49 ACQUIRED ABSENCE OF OTHER SPECIFIED PART 07/10/2017 DOUGLAS HART, JENNIFER M Ot Z01.818 ENCOUNTER FOR OTHER PREPROCEDURAL EXAMIN 07/10/2017 DOUGLAS HART, JENNIFER M Ot Z85.038 PERSONAL HISTORY OF MALIGNANT NEOPLASM O 07/11/2017 DOUGLAS HART, JENNIFER M Ot Z01.818 ENCOUNTER FOR OTHER PREPROCEDURAL EXAMIN 07/11/2017 JENNIFER COLE MD Ot Z85.038 PERSONAL HISTORY OF MALIGNANT NEOPLASM O 07/11/2017 DOUGLAS HART, JENNIFER M Ot Z01.818 ENCOUNTER FOR OTHER PREPROCEDURAL EXAMIN 07/11/2017 JENNIFER COLE MD M Ot Z85.038 PERSONAL HISTORY OF MALIGNANT NEOPLASM O 08/13/2017 JENNIFER COLE MD M Ot Z01.818 ENCOUNTER FOR OTHER PREPROCEDURAL EXAMIN 08/13/2017 JENNIFER COLE MD M Ot Z85.038 PERSONAL HISTORY OF MALIGNANT NEOPLASM O 08/16/2017 JENNIFER COLE MD M Ot Z01.818 ENCOUNTER FOR OTHER PREPROCEDURAL EXAMIN 08/16/2017 DOUGLAS HART, JENNIFER M Ot Z85.038 PERSONAL HISTORY OF MALIGNANT NEOPLASM O 08/16/2017 DOUGLAS HART, JENNIFER M Ot Z01.818 ENCOUNTER FOR OTHER PREPROCEDURAL EXAMIN 08/16/2017 JENNIFER COLE MD M Ot Z85.038 PERSONAL HISTORY OF MALIGNANT NEOPLASM O 08/17/2017 DOUGLAS HART, JENNIFER M Ot Z01.818 ENCOUNTER FOR OTHER PREPROCEDURAL EXAMIN 08/17/2017 JENNIFER COLE MD M Ot Z85.038 PERSONAL HISTORY OF MALIGNANT NEOPLASM O 08/20/2017 LAKIA MONTANA Ot 272.4 HYPERLIPIDEMIA NEC/NOS 08/20/2017 LAKIA MONTANA Ot 401.9 HYPERTENSION NOS 08/20/2017 LAKIA MONTANA Ot 414.00 CORON ATHEROSCLER NOS TYPE VESSEL, NATIV 08/20/2017 LAKIA MONTANA Ot 426.4 RT BUNDLE BRANCH BLOCK 08/20/2017 LAKIA MONTANA Ot 427.31 ATRIAL FIBRILLATION 08/20/2017 LAKIA MONTANA Ot 782.3 EDEMA 08/20/2017 JENNIFER COLE MD Ot V72.84 EXAM PRE-OPERATIVE NOS 08/20/2017 RAUL HART, ANDERSON Bustillo Ot 427.31 ATRIAL FIBRILLATION 08/20/2017 RAUL HART, ANDERSON Bustillo Ot I10 ESSENTIAL (PRIMARY) HYPERTENSION 08/20/2017 ARMANDO DPM, VERA Q Ot E11.9 TYPE 2 DIABETES MELLITUS WITHOUT COMPLIC 08/20/2017 ORENDER DO, CINDY S Ot E11.65 TYPE 2 DIABETES MELLITUS WITH HYPERGLYCE 08/20/2017 ORENDER DO, CINDY S Ot E78.2 MIXED HYPERLIPIDEMIA 08/20/2017 ORENDER DO, CINDY S Ot I10 ESSENTIAL (PRIMARY) HYPERTENSION 08/20/2017 ORENDER DO, CINDY S Ot E03.9 HYPOTHYROIDISM, UNSPECIFIED 08/20/2017 ORENDER DO, CINDY S Ot E11.65 TYPE 2 DIABETES MELLITUS WITH HYPERGLYCE 08/20/2017 ORENDER DO, CINDY S Ot E78.2 MIXED HYPERLIPIDEMIA 08/20/2017 ORENDER DO, CINDY S Ot I10 ESSENTIAL (PRIMARY) HYPERTENSION 08/20/2017 DOUGLAS HART, JENNIFER Tavarez Ot D12.0 BENIGN NEOPLASM OF CECUM 08/20/2017 DOUGLAS HART, JENNIFER Tavarez Ot E03.9 HYPOTHYROIDISM, UNSPECIFIED 08/20/2017 JENNIFER COLE MD Ot E11.9 TYPE 2 DIABETES MELLITUS WITHOUT COMPLIC 08/20/2017 DOUGLAS HART, JENNIFER Tavarez Ot E78.00 PURE HYPERCHOLESTEROLEMIA, UNSPECIFIED 08/20/2017 JENNIFER COLE MD Ot F41.9 ANXIETY DISORDER, UNSPECIFIED 08/20/2017 JENNIFER COLE MD Ot I10 ESSENTIAL (PRIMARY) HYPERTENSION 08/20/2017 JENNIFER COLE MD Ot I25.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[place] CORONARY 08/20/2017 DOUGLAS HART, JENNIFER Tavarez Ot Z79.899 OTHER CUSTODIAL (CURRENT) DRUG THERAPY 08/20/2017 JENNIFER COLE MD Ot Z85.038 PERSONAL HISTORY OF MALIGNANT NEOPLASM O 08/20/2017 JENNIFER COLE MD Ot Z87.442 PERSONAL HISTORY OF URINARY CALCULI 08/20/2017 DOUGLAS HART, JENNIFER Tavarez Ot Z88.2 ALLERGY STATUS TO SULFONAMIDES STATUS 08/20/2017 JENNIFER COLE MD Ot Z88.5 ALLERGY STATUS TO NARCOTIC AGENT STATUS 08/20/2017 DOUGLAS HART, JENNIFER Tavarez Ot Z95.5 PRESENCE OF CORONARY ANGIOPLASTY IMPLANT 08/23/2017 DOUGLAS HART, JENNIFER Tavarez Ot D12.0 BENIGN NEOPLASM OF [place] 08/23/2017 DOUGLAS HART, JENNIFER Tavarez Ot E03.9 HYPOTHYROIDISM, UNSPECIFIED 08/23/2017 DOUGLAS HART, JENNIFER Tavarez Ot E11.9 TYPE 2 DIABETES MELLITUS WITHOUT COMPLIC 08/23/2017 DOUGLAS HART, JENNIFER Tavarez Ot E78.00 PURE HYPERCHOLESTEROLEMIA, UNSPECIFIED 08/23/2017 DOUGLAS HART, JENNIFER Tavarez Ot F41.9 ANXIETY DISORDER, UNSPECIFIED 08/23/2017 JENNIFER COLE MD Ot I10 ESSENTIAL (PRIMARY) HYPERTENSION 08/23/2017 JENNIFER COLE MD Ot I25.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[place] CORONARY 08/23/2017 DOUGLAS HART, JENNIFER Tavarez Ot Z79.899 OTHER CUSTODIAL (CURRENT) DRUG THERAPY 08/23/2017 JENNIFER COLE MD Ot Z85.038 PERSONAL HISTORY OF MALIGNANT NEOPLASM O 08/23/2017 DOUGLAS HART, JENNIFER Tavarez Ot Z87.442 PERSONAL HISTORY OF URINARY CALCULI 08/23/2017 DOUGLAS HART, JENNIFER Tavarez Ot Z88.2 ALLERGY STATUS TO SULFONAMIDES STATUS 08/23/2017 DOUGLAS HART, JENNIFER Tavarez Ot Z88.5 ALLERGY STATUS TO NARCOTIC AGENT STATUS 08/23/2017 DOUGLAS HART, JENNIFRE Tavarez Ot Z95.5 PRESENCE OF CORONARY ANGIOPLASTY IMPLANT 08/28/2017 ORENDER DO, CINDY S Ot E03.9 HYPOTHYROIDISM, UNSPECIFIED 08/28/2017 ORENDER DO, CINDY S Ot E11.65 TYPE 2 DIABETES MELLITUS WITH HYPERGLYCE 08/28/2017 KARRIENDER DO, CINDY S Ot E78.2 MIXED HYPERLIPIDEMIA 08/28/2017 ORENDER DO, CINDY S Ot I10 ESSENTIAL (PRIMARY) HYPERTENSION 12/03/2017 LAKIA MONTANA Ot 272.4 HYPERLIPIDEMIA NEC/NOS 12/03/2017 LAKIA MONTANA Ot 401.9 HYPERTENSION NOS 12/03/2017 LAKIA MONTANA Ot 414.00 CORON ATHEROSCLER NOS TYPE VESSEL, NATIV 12/03/2017 LAKIA MONTANA Ot 426.4 RT BUNDLE BRANCH BLOCK 12/03/2017 LAKIA MONTANA Ot 427.31 ATRIAL FIBRILLATION 12/03/2017 LAKIA MONTANA Ot 782.3 EDEMA 12/03/2017 DOUGLAS HART, JENNIFER Tavarez Ot V72.84 EXAM PRE-OPERATIVE NOS 12/03/2017 RAUL HART, ANDERSON Bustillo Ot 427.31 ATRIAL FIBRILLATION 12/03/2017 RAUL HART, ANDERSON Bustillo Ot I10 ESSENTIAL (PRIMARY) HYPERTENSION 12/03/2017 ARMANDO DPM, VERA Q Ot E11.9 TYPE 2 DIABETES MELLITUS WITHOUT COMPLIC 12/03/2017 ORENDER DO, CINDY S Ot E11.65 TYPE 2 DIABETES MELLITUS WITH HYPERGLYCE 12/03/2017 ORENDER DO, CINDY S Ot E78.2 MIXED HYPERLIPIDEMIA 12/03/2017 ORENDER DO, CINDY S Ot I10 ESSENTIAL (PRIMARY) HYPERTENSION 12/03/2017 ORENDER DO, CINDY S Ot E03.9 HYPOTHYROIDISM, UNSPECIFIED 12/03/2017 ORENDER DO, CINDY S Ot E11.65 TYPE 2 DIABETES MELLITUS WITH HYPERGLYCE 12/03/2017 ORENDER DO, CINDY S Ot E78.2 MIXED HYPERLIPIDEMIA 12/03/2017 ORENDER DO, CINDY S Ot I10 ESSENTIAL (PRIMARY) HYPERTENSION 12/05/2017 ORENDER DO, CINDY S Ot D64.9 ANEMIA, UNSPECIFIED 12/05/2017 ORENDER DO, CINDY S Ot E11.40 TYPE 2 DIABETES MELLITUS WITH DIABETIC N 12/05/2017 ORENDER DO, CINDY S Ot I10 ESSENTIAL (PRIMARY) HYPERTENSION 12/05/2017 ORENDER DO, CINDY S Ot R53.83 OTHER FATIGUE 12/25/2017 ORENDER DO, CINDY S Ot D64.9 ANEMIA, UNSPECIFIED 12/25/2017 ORENDER DO, CINDY S Ot E11.40 TYPE 2 DIABETES MELLITUS WITH DIABETIC N 12/25/2017 ORENDER DO, CINDY S Ot I10 ESSENTIAL (PRIMARY) HYPERTENSION 12/25/2017 ORENDER DO, CINDY S Ot R53.83 OTHER FATIGUE 01/02/2018 LAKIA MONTANA Ot 272.4 HYPERLIPIDEMIA NEC/NOS 01/02/2018 LAKIA MONTANA Ot 401.9 HYPERTENSION NOS 01/02/2018 LAKIA MONTANA Ot 414.00 CORON ATHEROSCLER NOS TYPE VESSEL, NATIV 01/02/2018 LAKIA MONTANA Ot 426.4 RT BUNDLE BRANCH BLOCK 01/02/2018 LAKIA MONTANA Ot 427.31 ATRIAL FIBRILLATION 01/02/2018 LAKIA MONTANA Ot 782.3 EDEMA 01/02/2018 DOUGLAS HART, JENNIFER Tavarez Ot V72.84 EXAM PRE-OPERATIVE NOS 01/02/2018 RAUL HART, ANDERSON Bustillo Ot 427.31 ATRIAL FIBRILLATION 01/02/2018 ANDERSON CARTER MD Ot I10 ESSENTIAL (PRIMARY) HYPERTENSION 01/02/2018 ARMANDO DPM, VERA Q Ot E11.9 TYPE 2 DIABETES MELLITUS WITHOUT COMPLIC 01/02/2018 ORENDER DO, CINDY S Ot E11.65 TYPE 2 DIABETES MELLITUS WITH HYPERGLYCE 01/02/2018 ORENDER DO, CINDY S Ot E78.2 MIXED HYPERLIPIDEMIA 01/02/2018 ORENDER DO, CINDY S Ot I10 ESSENTIAL (PRIMARY) HYPERTENSION 01/02/2018 ORENDER DO, CINDY S Ot E03.9 HYPOTHYROIDISM, UNSPECIFIED 01/02/2018 ORENDER DO, CINDY S Ot E11.65 TYPE 2 DIABETES MELLITUS WITH HYPERGLYCE 01/02/2018 ORENDER DO, CINDY S Ot E78.2 MIXED HYPERLIPIDEMIA 01/02/2018 ORENDER DO, CINDY S Ot I10 ESSENTIAL (PRIMARY) HYPERTENSION 01/02/2018 ORENDER DO, CINDY S Ot D64.9 ANEMIA, UNSPECIFIED 01/02/2018 ORENDER DO, CINDY S Ot E11.40 TYPE 2 DIABETES MELLITUS WITH DIABETIC N 01/02/2018 ORENDER DO, CINDY S Ot I10 ESSENTIAL (PRIMARY) HYPERTENSION 01/02/2018 ORENDER DO, CINDY S Ot R53.83 OTHER FATIGUE 02/08/2018 ALVAREZ HART, ROBIN Ot D64.9 ANEMIA, UNSPECIFIED 02/08/2018 ALVAREZ HART, ROBIN Ot E11.9 TYPE 2 DIABETES MELLITUS WITHOUT COMPLIC 02/08/2018 ROBIN PINO MD Ot E66.9 OBESITY, UNSPECIFIED 02/08/2018 ROBIN PINO MD Ot E78.5 HYPERLIPIDEMIA, UNSPECIFIED 02/08/2018 ROBIN PINO MD Ot F41.9 ANXIETY DISORDER, UNSPECIFIED 02/08/2018 ROBIN PINO MD Ot I10 ESSENTIAL (PRIMARY) HYPERTENSION 02/08/2018 ROBIN PINO MD Ot I25.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[place] CORONARY 02/08/2018 ROBIN PINO MD Ot K04.7 PERIAPICAL ABSCESS WITHOUT SINUS 02/08/2018 ROBIN PINO MD Ot Z79.4 SOCIAL WORKER PSYCHIATRIC (CURRENT) USE OF INSULIN 02/08/2018 ROBIN PINO MD, Ot Z85.038 PERSONAL HISTORY OF MALIGNANT NEOPLASM O 02/08/2018 ROBIN PINO MD, Ot Z86.010 PERSONAL HISTORY OF COLONIC POLYPS 03/05/2018 ROBIN PINO MD, Ot D64.9 ANEMIA, UNSPECIFIED 03/05/2018 ROBIN PINO MD Ot E11.9 TYPE 2 DIABETES MELLITUS WITHOUT COMPLIC 03/05/2018 ROBIN PINO MD Ot E66.9 OBESITY, UNSPECIFIED 03/05/2018 ROBIN PINO MD Ot E78.5 HYPERLIPIDEMIA, UNSPECIFIED 03/05/2018 ROBIN PINO MD, Ot F41.9 ANXIETY DISORDER, UNSPECIFIED 03/05/2018 ROBIN PINO MD Ot I10 ESSENTIAL (PRIMARY) HYPERTENSION 03/05/2018 ROBIN PINO MD Ot I25.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[place] CORONARY 03/05/2018 ROBIN PINO MD Ot K04.7 PERIAPICAL ABSCESS WITHOUT SINUS 03/05/2018 ROBIN PINO MD Ot Z79.4 SOCIAL WORKER PSYCHIATRIC (CURRENT) USE OF INSULIN 03/05/2018 ROBIN PINO MD, Ot Z85.038 PERSONAL HISTORY OF MALIGNANT NEOPLASM O 03/05/2018 ROBIN PINO MD, Ot Z86.010 PERSONAL HISTORY OF COLONIC POLYPS 03/11/2018 ROBIN PINO MD, Ot D64.9 ANEMIA, UNSPECIFIED 03/11/2018 ROBIN PINO MD Ot E11.9 TYPE 2 DIABETES MELLITUS WITHOUT COMPLIC 03/11/2018 XUN MD, MCCURDY-YOLANDA Ot E66.9 OBESITY, UNSPECIFIED 03/11/2018 ROBIN PINO MD, Ot E78.5 HYPERLIPIDEMIA, UNSPECIFIED 03/11/2018 ROBIN PINO MD, Ot F41.9 ANXIETY DISORDER, UNSPECIFIED 03/11/2018 ROBIN PINO MD, Ot I10 ESSENTIAL (PRIMARY) HYPERTENSION 03/11/2018 ROBIN PINO MD, Ot I25.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[place] CORONARY 03/11/2018 ROBIN PINO MD, Ot K04.7 PERIAPICAL ABSCESS WITHOUT SINUS 03/11/2018 ROBIN PINO MD, Ot Z79.4 CUSTODIAL (CURRENT) USE OF INSULIN 03/11/2018 ROBIN PINO MD, Ot Z85.038 PERSONAL HISTORY OF MALIGNANT NEOPLASM O 03/11/2018 ROBIN PINO MD, Ot Z86.010 PERSONAL HISTORY OF COLONIC POLYPS 08/13/2018 DOUGLAS HART, JENNIFER Tavarez Ot Z01.818 ENCOUNTER FOR OTHER PREPROCEDURAL EXAMIN 08/15/2018 DOUGLAS HART, JENNIFER Tavarez Ot Z01.818 ENCOUNTER FOR OTHER PREPROCEDURAL EXAMIN 08/15/2018 DOUGLAS HART, JENNIFER Tavarez Ot Z01.818 ENCOUNTER FOR OTHER PREPROCEDURAL EXAMIN 08/16/2018 DOUGLAS HART, JENNIFER Tavarez Ot Z01.818 ENCOUNTER FOR OTHER PREPROCEDURAL EXAMIN Procedures There is no data. Results Test [...] 13.1 % 4.5-6.2 Comprehensive metabolic panel - 08/23/17 09:21 Serum or plasma sodium measurement (moles/volume) [...] 08/07/17 09:36 T4 (thyroxine) 9.8 % 5.5-12.0 Comprehensive metabolic panel - 12/03/17 09:20 Serum or plasma sodium measurement (moles/volume) 136 mmol/L 135-145 Serum or plasma potassium measurement (moles/volume) 4.2 mmol/L 3.6-5.0 Serum or plasma chloride measurement (moles/volume) 104 mmol/L 98-107 Carbon dioxide 22 mmol/L 21-32 Serum or plasma anion gap determination (moles/volume) 10 mmol/L 5-14 Serum or plasma urea nitrogen measurement (mass/volume) 14 mg/dL 7-18 Serum or plasma creatinine measurement (mass/volume) 0.86 mg/dL 0.60-1.30 Serum or plasma urea nitrogen/creatinine mass ratio 16 NRG Serum or plasma creatinine measurement with calculation of estimated glomerular filtration rate > NRG Serum or plasma glucose measurement (mass/volume) 254 mg/dL 70-105 Serum or plasma calcium measurement (mass/volume) 9.5 mg/dL 8.5-10.1 Serum or plasma total bilirubin measurement (mass/volume) 0.5 mg/dL 0.1-1.0 Serum or plasma alkaline phosphatase measurement (enzymatic activity/volume) 81 U/L 40-136 Serum or plasma aspartate aminotransferase measurement (enzymatic activity/ volume) 33 U/L 5-34 Serum or plasma alanine aminotransferase measurement (enzymatic activity/volume ) 39 U/L 0-55 Serum or plasma protein measurement (mass/volume) 7.4 g/dL 6.4-8.2 Serum or plasma albumin measurement (mass/volume) 3.8 g/dL 3.2-4.5 THYROID STIMULATING HORMONE - 12/03/17 09:20 THYROID STIMULATING HORMONE 4.24 u[iU]/mL 0.35-4.94 Serum or plasma thyroxine (T4) free measurement (mass/volume) - 12/03/17 09:20 Serum or plasma thyroxine (T4) free measurement (mass/volume) 0.98 ng/dL 0.70-1.48 Hemoglobin A1c - 12/03/17 09:20 Blood hemoglobin A1C measurement (mass/volume) 11.0 % 4.0 -5.6 MEAN BLOOD GLUCOSE 269 % <=126 Serum iron and total iron binding capacity panel - 12/03/17 09:20 Serum or plasma iron measurement (mass/volume) 57 % 40- 180 Total iron binding capacity and transferrin saturation measurement 19 % 15-50 Iron binding capacity [mass/volume] in serum or plasma 301 % 280-380 UIBC (unsaturated iron binding capacity) 244 % 55-450 Serum or plasma ferritin measurement (mass/volume) 478.7 % 32.0-356.0 Cyanocobalamin measurement - 12/03/17 09:20 Vitamin B12 438 pg/mL 190-1100 DIFFERENTIAL, MANUAL - 02/12/18 17:17 ABSOLUTE NEUTROPHILS 7444 cells/uL 0835-5468 ABSOLUTE MONOCYTES 515 cells/uL 200-950 ABSOLUTE EOSINOPHILS 303 cells/uL 15-500 ABSOLUTE BASOPHILS 0 cells/uL 0-200 NEUTROPHILS 73.7 % NRG LYMPHOCYTES 11.1 % NRG MONOCYTES 5.1 % NRG EOSINOPHILS 3.0 % NRG BASOPHILS 0 % NRG ABSOLUTE BAND NEUTROPHILS 717 cells/uL 0-750 ABSOLUTE LYMPHOCYTES 1121 cells/uL 850-3900 BAND NEUTROPHILS 7.1 % NRG PLATELET ESTIMATION ADEQUATE ADEQUATE CBC MORPHOLOGY NORMAL LIPID PANEL - 05/21/18 15:55 CHOLESTEROL, TOTAL 118 mg/dL <200 HDL CHOLESTEROL 38 mg/dL >40 TRIGLYCERIDES 79 mg/dL <150 LDL-CHOLESTEROL 64 mg/dL (calc) NRG CHOL/HDLC RATIO 3.1 (calc) <5.0 NON HDL CHOLESTEROL 80 mg/dL (calc) <130 CMP - 05/21/18 15:55 GLUCOSE 120 mg/dL 65-99 UREA NITROGEN (BUN) 17 mg/dL 7-25 CREATININE 0.92 mg/dL 0.70-1.25 eGFR NON-AFR. FINNISH 86 mL/min/1.73m2 > OR=60 eGFR 99 mL/min/1.73m2 > OR=60 BUN/CREATININE RATIO NOT APPLICABLE (calc) 6-22 SODIUM 139 mmol/L 135-146 POTASSIUM 4.3 mmol/L 3.5-5.3 CHLORIDE 99 mmol/L 98-110 CARBON DIOXIDE 31 mmol/L 20-32 CALCIUM 10.1 mg/dL 8.6-10.3 PROTEIN, TOTAL 7.2 g/dL 6.1-8.1 ALBUMIN 4.1 g/dL 3.6-5.1 GLOBULIN 3.1 g/dL (calc) 1.9-3.7 ALBUMIN/GLOBULIN RATIO 1.3 (calc) 1.0-2.5 BILIRUBIN, TOTAL 0.6 mg/dL 0.2-1.2 ALKALINE PHOSPHATASE 81 U/L 40-115 AST 22 U/L 10-35 ALT 18 U/L 9-46 Encounters ACCT No. Visit Date/Time Discharge Status Pt. Type Provider Facility Loc./Unit Complaint [id number] 08/15/2018 12:00:00 08/15/2018 12:05:00 DIS Outpatient JENNIFER COLE MD [facility] PREOP COLONOSCOPY [id number] 03/11/2018 00:38:00 03/11/2018 23:59:59 CLS Preadmit ROBIN PINO MD [facility] ONC [id number] 01/21/2018 13:02:00 02/08/2018 00:01:00 DIS Outpatient ROBIN PINO MD [facility] ONC [id number] 12/03/2017 09:00:00 12/03/2017 23:59:59 CLS Outpatient CINDY CHAVIRA DO [facility] LAB FATIGUE [id number] 08/20/2017 06:36:00 08/20/2017 10:20:00 DIS Outpatient JENNIFER COLE MD [facility] ENDO PERSONAL HX COLON CA [id number] 08/16/2017 09:15:00 08/16/2017 10:05:00 DIS Outpatient JENNIFER COLE MD [facility] PREOP COLONOSCOPY [id number] 08/07/2017 09:21:00 08/07/2017 23:59:59 CLS Outpatient CINDY CHAVIRA DO [facility] LAB E03.9 [id number] 04/04/2017 19:39:00 04/04/2017 22:04:00 DIS Emergency AGATA RUFFIN [facility] ER PT FELL,RT SHOULDER PAIN, RT KNEE PAIN [id number] 01/31/2017 11:59:00 01/31/2017 23:59:59 CLS Outpatient CINDY CHAVIRA DO [facility] LABNPT E11.65, E78.2, I10 [id number] 01/31/2017 09:11:00 01/31/2017 23:59:59 CLS Outpatient ARMANDO DPM, VERA Q [facility] LAB DIABETES [id number] 11/22/2016 10:34:00 11/22/2016 23:59:59 CLS Outpatient ANDERSON CARTER MD [facility] LAB HTN [id number] 12/27/2015 13:38:00 12/27/2015 15:45:00 DIS Outpatient JENNIFER COLE MD [facility] SD GERD [id number] 12/22/2015 05:50:00 12/22/2015 09:45:00 DIS Outpatient JENNIFER COLE MD [facility] PREOP GERD [id number] 08/30/2015 20:59:00 08/31/2015 00:06:00 DIS Emergency REMY MATOSSEEA K [facility] ER LOWER L BACK PAIN [id number] 11/23/2014 06:56:00 11/23/2014 23:59:59 [facility] [id number] 11/23/2014 06:52:00 11/23/2014 09:35:00 DIS Outpatient JENNIFER COLE MD [facility] GASTRIC EROSIONS [id number] 11/18/2014 06:34:00 11/18/2014 23:59:59 CLS Outpatient JENNIFER COLE MD [facility] PREOP GASTRIC EROSIONS [id number] 11/09/2014 13:08:00 11/09/2014 14:37:00 DIS Outpatient MILLY TYLER MD Via [facility] CARD DEGENERATIVE DISC DISEASE LUMBAR LUMBAR SPONDOLOYS [id number] 08/31/2014 09:32:00 08/31/2014 12:45:00 DIS Outpatient JENNIFER COLE MD Via [facility] DYSPHAGIA; EPIGASTRIC PAIN [id number] 10/01/2013 07:28:00 10/01/2013 23:59:59 CLS Outpatient LAKIA MONTANA Via [facility] CARD CAD,HTN,HLP [id number] 09/19/2013 09:15:00 09/19/2013 23:59:59 CLS Outpatient [id number] 02/16/2013 15:42:00 02/16/2013 18:29:00 DIS Emergency [id number] 01/13/2013 11:28:00 01/13/2013 13:08:00 DIS Emergency [id number] 12/02/2012 10:07:00 12/02/2012 23:59:59 CLS Outpatient [id number] 11/09/2012 12:00:00 11/11/2012 21:00:00 DIS Outpatient [id number] 11/05/2012 07:45:00 11/06/2012 14:00:00 DIS Outpatient [id number] 08/19/2018 08:00:00 PEN Preadmit DOUGLAS HART, JENNIFER Tavarez Via [facility] ENDO HX POLYPS 11/201603/03/2018 23:42:08 03/03/2018 23:59:59 CLS Outpatient [id number] 08/31/2017 09:35:00 08/31/2017 23:59:00 DIS Outpatient PARADISE BOLTON [id number] 12/06/2016 09:11:00 12/06/2016 23:59:00 DIS Outpatient PARADISE BOLTON [id number] 05/31/2016 10:14:00 05/31/2016 23:59:00 DIS Outpatient PARADISE BOLTON [id number] 08/14/2018 11:00:00 08/14/2018 23:59:59 CLS Outpatient AYLIN HART, [facility] [id number] 05/21/2018 15:00:00 Document Registration [id number] 02/12/2018 15:20:00 Document Registration
[2018-08-19] MEDS ORDERED: NS IV 500 ML 500 ML IV PRN (07:25)
[2018-08-19] MEDS ORDERED: NS IV 500 ML 500 ML ONE (07:29)
[2018-08-19] MEDS ORDERED: fentaNYL INJECTION 100 MCG/2 ML AMP IVP ONE (07:30)
[2018-08-19] MEDS ORDERED: MIDAZOLAM 2 MG/2 ML (VERSED) VIAL IVP ONE (07:30)
[2018-08-19 07:50] VITALS: BP 166/79
[2018-08-19] MEDS ORDERED: fentaNYL INJECTION 100 MCG/2 ML AMP ONE (08:17)
[2018-08-19] MEDS ORDERED: MIDAZOLAM 2 MG/2 ML (VERSED) VIAL ONE ×4 (08:18)
--- NOTE | 2018-08-19 08:26 | History & Physicial ---
History of Present Illness History of Present Illness Reason for visit/HPI to undergo surveillance colonoscopy. Sessile tubular adenoma of the cecum excised irritable. Previous carcinoma of the descending colon. Date of Admission 08/19/18 Date Seen by a Provider: Aug 19, 2018 Time Seen by a Provider: 08:24 I consulted on this patient on 08/19/18 08:23 Attending Physician Jennifer Schmidt MD Admitting Physician Julia Nolan DO Consult Allergies and Home Medications Allergies Coded Allergies: Sulfa (Sulfonamide Antibiotics) (Unverified Allergy, Unknown, N/V, 08/16/17) codeine (Unverified Allergy, Unknown, N/V ABD PAIN, 08/16/17) Home Medications Amiodarone HCl 200 Mg Tablet, 200 MG PO DAILY, (Reported) Amlodipine Besylate 5 Mg Tablet, 5 MG PO DAILY, (Reported) Aspirin 81 Mg Tab.chew, 81 MG PO DAILY, (Reported) Atorvastatin Calcium 20 Mg Tablet, 20 MG PO HS, (Reported) Furosemide 40 Mg Tablet, 40 MG PO DAILY PRN for swelling, (Reported) Gabapentin 600 Mg Tablet, 600 MG PO DAILY, (Reported) Insulin Glargine,Hum.rec.anlog 100 Unit/1 Ml Insuln.pen, 16 UNIT SQ HS, ( Reported) Levothyroxine Sodium 88 Mcg Tablet, 88 MCG PO DAILY, (Reported) Losartan/Hydrochlorothiazide 1 Each Tablet, 1 EACH PO DAILY, (Reported) Metformin HCl 500 Mg Tablet, 500 MG PO BID, (Reported) Multivitamin 1 Each Tablet, 1 EACH PO DAILY, (Reported) Omeprazole 40 Mg Capsule.dr, 40 MG PO BID, (Reported) Rivaroxaban 20 Mg Tablet, 20 MG PO DAILY, (Reported) Spironolactone 50 Mg Tablet, 50 MG PO DAILY PRN for swelling, (Reported) Patient Home Medication List Home Medication List Reviewed: Yes Past [facility]reyhc-Hrmvrk-Getxsv Hx Patient Social History Marrital Status: Employed/Student: unemployed, retired Alcohol Use: Denies Use Recreational Drug Use: No Smoking Status: Never a Smoker 2nd Hand Smoke Exposure: No Recent Foreign Travel: No Contact w/other who traveled: No Recent Hopitalizations: No Recent Infectious Disease Expo: No Immunizations Up To Date Tetanus Booster (TDap): More than 5yrs Date of Pneumonia Vaccine: Mar 26, 2017 Date of Influenza Vaccine: Mar 26, 2018 Seasonal Allergies Seasonal Allergies: No Surgeries Yes (TRAUMA TO RT WRIST, BILAT KNEE SCOPE, TRAUMA LT ELBOW, colon resection) Appendectomy, Gallbladder Respiratory No Cardiovascular Yes (HEART CATH WITH STENTS X2-2013) Coronary Artery Disease, High Cholesterol, Hypertension Neurological No Reproductive System Hx Reproductive Disorders: No Sexually Transmitted Disease: No HIV/AIDS: No Genitourinary No Kidney Stones Gastrointestinal Yes (COLON CA) Hemorrhoids, Polyps, Ulcer Musculoskeletal Yes Degenerate Disk Disease, Arthritis, Chronic Back Pain Endocrine History of Endocrine Disorders: Yes Endocrine Disorders: Hypothyroidsim, Diabetes, Non-Insulin dep HEENT History of HEENT Disorders: No Loss of Vision: Bilateral Hearing Impairment: Denies Cancer Yes Colon Did You Recieve Any Treatments: Yes Type of Treatment: Chemotherapy, Surgical Intervention Psychosocial History of Psychiatric Problem: No Behavioral Health Disorders: Anxiety Integumentary History of Skin or Integumenta: No (MRSA RIGHT LEG 2002) Blood Transfusions History of Blood Disorders: No Adverse Reaction to a Blood Tr: No (N/A) Family Medical History Significant Family History: No Pertinent Family Hx Review of Systems Constitutional: no symptoms reported EENTM: no symptoms reported Respiratory: no symptoms reported Cardiovascular: no symptoms reported Gastrointestinal: no symptoms reported Genitourinary: no symptoms reported Musculoskeletal: no symptoms reported Skin: no symptoms reported Psychiatric/Neurological: No Symptoms Reported Physical Exam Vital Signs Vital Signs - First Documented 08/19/18 07:50 Temp 98.1 Pulse 63 Resp 16 B/P (MAP) 166/79 (108) Pulse Ox 96 O2 Delivery Room Air Capillary Refill : Height, Weight, BMI Height: 5'8.00" Weight: 279lbs. 0.0oz. 126.201834vd; 42.4 BMI Method:Stated General Appearance: No Apparent Distress Neck: Normal Inspection Respiratory: Lungs Clear Cardiovascular: Regular Rate, Rhythm Gastrointestinal: Non Tender, Soft Rectal: Deferred Back: Normal Inspection Extremity: Normal Inspection Skin: Warm/Dry Assessment/Plan Assessment and Plan Gentleman with a previous h/o polyps. For screening colonoscopy Admission Diagnosis Admission Status: Other (Outpt Proc) JENNIFER SCHMIDT MD Aug 19, 2018 08:26
--- NOTE | 2018-08-19 08:27 | Conscious Sedation/ASA ---
Conscious Sedation Pre-Proced Time 08:26 ASA Score 2 For ASA 3 and 4: Consider anesthesia and medical clearance. Also, for patients with a history of failed moderate sedation consider anesthesia. Airway Lungs Heart ASA score ASA 1: a normal healthy patient ASA 2: a patient with a mild systemic disease (mid diabetes, controlled hypertension, obesity ASA 3: a patient with a severe systemic disease that limits activity (angina , COPD, prior Myocardial infarction) ASA 4: a patient with an incapacitating disease that is a constant threat to life (CHF, renal failure) ASA 5: a moribund patient not expected to survive 24 hrs. (ruptured aneurysm) ASA 6: a declared brain- patient whose organs are being harvested. For emergent operations, add the letter E after the classification Mallampati Classification Grade 2 Sedation Plan Discussed options with patient/fam The patient is an appropriate candidate to undergo the planned procedure, sedation, and anesthesia. The patient immediately re-assessed prior to indication. JENNIFER COLE MD Aug 19, 2018 08:27
--- NOTE | 2018-08-19 08:45 | Endo Procedure Record ---
Endo Procedure Report Date of Procedure Last Colonoscopy: Yes (07/24/2017) Aug 19, 2018 Surgeon (s) JENNIFER COLE MD Post Procedure/Op Diagnosis 3 mm sessile polyp at the cecum Procedure Performed colonoscopy to cecum Snare polypectomy Description of Procedure Anesthesia Type: Conscious Sedation Specimen(s) collected/removed cecal polyp Description of the Procedure Indication for the procedure: This gentleman had undergone sigmoid resection to manage a carcinoma several years ago. About a year ago, he was found to have a tubular adenoma of the cecum. He returned for surveillance colonoscopy. Informed consent was obtained after reviewing the procedure in detail. Description of the procedure: He was placed in left lateral decubitus position and his vital signs were monitored. Conscious sedation was achieved using Versed and fentanyl. Digital rectal examination was unremarkable. The colonoscope was then introduced into the rectum and advanced all the way up to cecum. The scope was then withdrawn slowly and the mucosa examined in a systematic fashion. Findin mm sessile polyp at the cecum, that was snared and retrieved He tolerated the procedure well and was taken back to the nursing area in a stable condition. Impression: Surveillance colonoscopy. Sessile polyp excised from the cecum. Recommend repeat in 2 years. Copy Copies To 1: CINDY CHAVIRA XAVIER M MD Aug 19, 2018 08:45
--- NOTE | 2018-08-19 08:47 | Discharge Inst-Simple/Standard ---
Discharge Inst-Standard Discharge Medications New, Converted or Re-Newed RX: Other Patient Instructions/Follow Up Plan of Care/Instructions/FU: repeat colonoscopy in 2 years Activity as Tolerated: Yes Discharge Diet: No Restrictions JENNIFER COLE MD Aug 19, 2018 08:47
[2018-08-19 09:05] VITALS: BP 127/59
[2018-08-19 09:30] VITALS: BP 147/71
[2018-08-19 09:35] VITALS: BP 147/71
== END 2018-08-19 09:35 | disposition home or self-care (01) ==
LOC: ENDO 07:13
PROVIDERS: ATTEND Surgery
DX: Z09 Encounter for follow-up examination after completed treatment for conditions other than malignant neoplasm (principal); D12.0 Benign neoplasm of cecum; Z86.010 Personal history of colon polyps; Z85.038 Personal history of other malignant neoplasm of large intestine; E11.9 Type 2 diabetes mellitus without complications; I25.10 Atherosclerotic heart disease of native coronary artery without angina pectoris; I10 Essential (primary) hypertension; E78.00 Pure hypercholesterolemia, unspecified; E03.9 Hypothyroidism, unspecified; Z79.82 Long term (current) use of aspirin; Z79.4 Long term (current) use of insulin; Z79.899 Other long term (current) drug therapy; Z95.5 Presence of coronary angioplasty implant and graft; Z92.21 Personal history of antineoplastic chemotherapy
CPT/HCPCS: 82962

== ENCOUNTER → 2019-05-02 | Outpatient (CLI) | payer MEDICARE ==
[~2019-05-02] MED LIST changes: -RIVA20TA PO; +RIVA20TA2 PO
== END ==
LOC: ORTHO 10:05
PROVIDERS: ATTEND Orthopaedic Surgery
DX: M17.12 Unilateral primary osteoarthritis, left knee (principal)
CPT/HCPCS: 99203

== ENCOUNTER → 2019-05-12 | Outpatient (CLI) | payer MEDICARE | LOC: ORTHO 09:02 | PROVIDERS: ATTEND Orthopaedic Surgery | DX: M17.12 Unilateral primary osteoarthritis, left knee (principal) ==

== ENCOUNTER 2019-10-24 07:43 | Outpatient (RCR) | payer MEDICARE ==
[~2019-10-24] VITALS: Ht 172.7 cm; Wt 130.9 kg
[~2019-10-24 07:43] MED LIST changes: +APIX5TAB PO; +CANA1TAB4 PO; +OMEP40CA27 PO; -OMEP40CA36 PO; +SERT50TA9 PO; -TAMS0.4C98 PO; +TMSL.4C PO
== END 2019-10-24 16:00 | disposition home or self-care (01) ==
LOC: PREOP 07:43
PROVIDERS: ATTEND Surgery
DX: Z01.818 Encounter for other preprocedural examination (principal)
CPT/HCPCS: 87635

== ENCOUNTER → 2020-09-02 | Outpatient (CLI) | payer MEDICARE ==
[~2020-09-02] MED LIST changes: -AMIO200T4 PO; +AMIO200T6 PO; +AMLO-250 PO; -AMLO5TAB9 PO; +MULT-567 PO; -MULT1TAB69 PO; +SERT-413 PO; -SERT50TA9 PO
--- NOTE | 2020-09-02 12:06 | Diagnostic Imaging Report ---
PROCEDURE: US Renal Bilateral. TECHNIQUE: Multiple real-time grayscale images were obtained over the kidneys in various projections bilaterally. INDICATION: Chronic kidney disease There are no prior renal ultrasound examinations available for comparison. The CT abdomen/pelvis exam of 08/30/2015 noted partial obstruction of the left collecting system due to a 3 mm calculus. There are also nonobstructive calculi involving both kidneys. On this exam both kidneys were identified. The right kidney measures 12.6 x 5.6 x 5.9 cm, while left kidney is estimated 12.3 x 6.2 x 7.0 cm. There is no evidence for a solid mass involving either kidney and there is no sign of hydronephrosis. There is a small 1.6 x 1.5 x 1.6 cm benign-appearing cyst along the inferior pole of the right kidney. Even in retrospect this is difficult to appreciate on the prior CT exam. The renal cortices are normal in thickness and echogenicity. There is no shadowing from the kidneys to suggest nephrolithiasis. There is only small amount of fluid in the bladder and consequently the bladder could not be evaluated. IMPRESSION: 1. There is no evidence for a solid renal mass or for an acute abnormality of either kidney. 2. There is no sign of chronic medical renal disease. 3. The urinary bladder is only partially full and consequently not well evaluated. Dictated by: Dictated on workstation # [id number]
== END ==
LOC: RAD 10:45
PROVIDERS: ATTEND Nurse Practitioner
DX: N18.31 Chronic kidney disease, stage 3a (principal)
CPT/HCPCS: 76770

== ENCOUNTER → 2020-10-04 | Outpatient (CLI) | payer MEDICARE | LOC: ORTHO 09:20 | PROVIDERS: ATTEND Orthopaedic Surgery | DX: M17.12 Unilateral primary osteoarthritis, left knee (principal) | CPT/HCPCS: 20610 ==

== ENCOUNTER 2021-01-18 05:41 | Outpatient (CLI) | payer MEDICARE ==
[~2021-01-18] VITALS: Ht 172.7 cm; Wt 129.7 kg
[~2021-01-18 05:41] MED LIST changes: -OMEP40CA27 PO; +OMEP40CA6 PO
[2021-01-18] MEDS ORDERED: ESOM40CA52 PO (12:46)
== END 2021-01-18 15:43 | disposition home or self-care (01) ==
LOC: PREOP 05:41
PROVIDERS: ATTEND Surgery
DX: Z01.818 Encounter for other preprocedural examination (principal)

== ENCOUNTER 2021-01-25 11:04 | Day surgery (SDC) | payer MEDICARE ==
[2021-01-25] VITALS (8 sets, daily range): BP systolic 100–149; BP diastolic 53–61
[~2021-01-25] VITALS: Ht 173 cm; Wt 130.0 kg
[~2021-01-25 11:04] MED LIST changes: +ESOM40CA52 PO
[2021-01-25] MEDS ORDERED: LACTATED RINGERS 1,000 ML IV STA (11:05)
[2021-01-25] MEDS ORDERED: LACTATED RINGERS 1,000 ML IV ONE (11:08)
[2021-01-25] MEDS ORDERED: PROPOFOL INJECTION 50 ML IV ONE ×2 (13:20→13:48)
[2021-01-25] MEDS ORDERED: MIDAZOLAM 2 MG/2 ML (VERSED) VIAL ONE (13:20)
--- NOTE | 2021-01-25 14:02 | Discharge Inst-Simple/Standard ---
Discharge Inst-Standard Patient Instructions/Follow Up Plan of Care/Instructions/FU: 2 weeks gabriela Activity as Tolerated: Yes Discharge Diet: Regular Diet EBONY VALDEZ DO Jan 25, 2021 14:02
--- NOTE | 2021-01-25 14:04 | Progress Note-Post Operative ---
Post-Operative Progess Note Surgeon (s)/Acetylene Torch Operator (s) Surgeon EBONY VALDEZ DO Acetylene Torch Operator: na Pre-Operative Diagnosis history of polyps, history of colon cancer Post-Operative Diagnosis colon polyp x 2 Procedure & Operative Findings Date of Procedure 01/25/21 Procedure Performed/Findings colonoscopy c snare polypectomy x 2 Anesthesia Type per commissioning editor Estimated Blood Loss Estimated blood loss (mL): none Specimens/Packing Specimens Removed colon polyp x 2 EBONY VALDEZ DO Jan 25, 2021 14:04
--- NOTE | 2021-01-25 14:57 | Anesthesia-General Post-Op ---
MAC Patient Condition Mental Status/LOC: Same as Preop Cardiovascular: Satisfactory Nausea/Vomiting: Absent Respiratory: Satisfactory Pain: Controlled Complications: Absent Post Op Complications Complications None Follow Up Care/Instructions Patient Instructions None needed. Anesthesiology Discharge Order Discharge Order Patient is doing well, no complaints, stable vital signs, no apparent adverse anesthesia problems. No complications reported per nursing. [place] CRNA Jan 25, 2021 14:57
--- NOTE | 2021-01-25 15:38 | OPERATIVE REPORT ---
DATE OF SERVICE: 01/25/2021 PREOPERATIVE DIAGNOSIS: History of colon polyps. POSTOPERATIVE DIAGNOSIS: Colon polyp x2. PROCEDURES PERFORMED: Colonoscopy with snare polypectomy x2. SURGEON: Ebony Sullivan DO. ANESTHESIA: Per TERMITE CONTROL SERVICER. ESTIMATED BLOOD LOSS: None. COMPLICATIONS: None. INDICATIONS FOR PROCEDURE: The patient is a 70-year-old male admitted for reevaluation of colon for history of colon polyps. He understands the risks and benefits and wishes to proceed. Consent was signed in the chart. DESCRIPTION OF PROCEDURE: The patient was taken to the endoscopy suite and placed in the left lateral recumbent position. Timeout was performed. Digital rectal exam was performed. There were no palpable polyps, masses or ulcerations. Scope was inserted in the rectum, advanced all the way to cecum with minimal difficulty. Prep was adequate with irrigation and suction. Scope was then slowly retracted back. No polyps, masses or ulcerations of the cecum. In the ascending colon, a small polyp was present, which snare polypectomy was performed. This was obtained with suction. Scope was then continuously retracted back. No polyps, masses or ulcerations in remainder of the ascending, transverse and descending colon. In the sigmoid colon, another small polyp was present, which snare polypectomy was performed. Scope was then continuously retracted back in the rectum, where it was inserted and retracted multiple times, noting no other pathology. Scope was then slowly retracted back until completely removed. The patient tolerated the procedure well without any complications and taken to the recovery room in stable condition. RECOMMENDATIONS: The patient will need repeat colonoscopy in three years. Any issues before that will be seen at that time. Job ID: [id number] DocumentID: [id number] Dictated Date: 01/25/2021 14:06:45 Stranding Machine Operator Date: 01/25/2021 15:37:44 Dictated By: EBONY SULLIVAN DO
== END 2021-01-25 15:08 | disposition home or self-care (01) ==
LOC: ENDO 11:04
PROVIDERS: ATTEND Surgery
DX: D12.2 Benign neoplasm of ascending colon (principal); D12.5 Benign neoplasm of sigmoid colon; I10 Essential (primary) hypertension; I25.10 Atherosclerotic heart disease of native coronary artery without angina pectoris; K21.9 Gastro-esophageal reflux disease without esophagitis; E11.9 Type 2 diabetes mellitus without complications; E66.01 Morbid (severe) obesity due to excess calories; Z68.41 Body mass index [BMI] 40.0-44.9, adult; Z79.890 Hormone replacement therapy; E78.5 Hyperlipidemia, unspecified; I48.91 Unspecified atrial fibrillation; M19.90 Unspecified osteoarthritis, unspecified site; E03.9 Hypothyroidism, unspecified; Z79.01 Long term (current) use of anticoagulants; Z79.899 Other long term (current) drug therapy; Z79.82 Long term (current) use of aspirin; Z95.5 Presence of coronary angioplasty implant and graft
CPT/HCPCS: 82947; 88305

== ENCOUNTER → 2021-05-31 | Outpatient (CLI) | payer MEDICARE ==
[~2021-05-31] MED LIST changes: -AMIO200T6 PO; +AMIO200T65 PO
[2021-05-31 11:14] LABS: BASOPHILS % (AUTO) 0 % (0-10); EOSINOPHILS # (AUTO) 0.5 10^3/uL (0.0-0.3); EOSINOPHILS % (AUTO) 6 % (0-10); HEMATOCRIT 27 % (40-54); LYMPHOCYTES # (AUTO) 0.6 10^3/uL (1.0-4.0); LYMPHOCYTES % (AUTO) 7 % (12-44); MEAN CORPUSCULAR HEMOGLOBIN 29 pg (25-34); MEAN CORPUSCULAR HGB CONC 30 g/dL (32-36); MEAN CORPUSCULAR VOLUME 98 fL (80-99); MEAN PLATELET VOLUME 9.2 fL (9.0-12.2); MONOCYTES # (AUTO) 0.7 10^3/uL (0.0-1.0); MONOCYTES % (AUTO) 8 % (0-12); NEUTROPHILS # (AUTO) 6.6 10^3/uL (1.8-7.8); NEUTROPHILS % (AUTO) 78 % (42-75); PLATELET COUNT 183 10^3/uL (130-400); WHITE BLOOD COUNT 8.4 10^3/uL (4.3-11.0)
[2021-05-31 11:23] LABS: ALBUMIN 3.9 GM/DL (3.2-4.5)
[2021-05-31 11:24] LABS: CHLORIDE 107 MMOL/L (98-107); POTASSIUM 4.9 MMOL/L (3.6-5.0); SODIUM 141 MMOL/L (135-145)
[2021-05-31 11:25] LABS: CALCIUM 9.3 MG/DL (8.5-10.1)
[2021-05-31 11:26] LABS: GLUCOSE 126 MG/DL (70-105); TOTAL PROTEIN 7.6 GM/DL (6.4-8.2)
[2021-05-31 11:27] LABS: CARBON DIOXIDE 23 MMOL/L (21-32)
[2021-05-31 11:28] LABS: BILIRUBIN,TOTAL 1.2 MG/DL (0.1-1.0)
[2021-05-31 11:29] LABS: ALKALINE PHOSPHATASE 81 U/L (40-136)
[2021-05-31 11:30] LABS: CREATININE SERUM 1.78 MG/DL (0.60-1.30); GFR ESTIMATED 38
[2021-05-31 11:31] LABS: BUN/CREATININE RATIO 14
[2021-05-31 11:33] LABS: ALANINE AMINOTRANSFERASE 14 U/L (0-55)
[2021-05-31 11:38] LABS: ANISOCYTOSIS SLIGHT; BAND NEUTROPHILS 0 %; BASOPHILS % (MANUAL) 1 %; ELLIPT/OVALOCYTES SLIGHT; EOSINOPHILS % (MANUAL) 5 %; LYMPHOCYTES % (MANUAL) 6 %; MONOCYTES % (MANUAL) 4 %; NEUTROPHILS % (MANUAL) 84 %; POIKILOCYTOSIS SLIGHT
== END ==
LOC: LAB 10:55
PROVIDERS: ATTEND Family Medicine
DX: I48.0 Paroxysmal atrial fibrillation (principal); M79.89 Other specified soft tissue disorders; N18.30 Chronic kidney disease, stage 3 unspecified
CPT/HCPCS: 36415; 80053; 83880; 84484; 85007; 85027

== ENCOUNTER 2021-06-03 12:26 | Emergency (ER) | payer MEDICARE ==
[~2021-06-03] VITALS: Ht 172.7 cm; Wt 126.6 kg
[2021-06-03 12:35] VITALS: BP 154/83
--- NOTE | 2021-06-03 13:06 | ED Respiratory ---
General Chief Complaint: Respiratory Problems Stated Complaint: COUGH/SOA LOW O2 Source: patient, family () Exam Limitations: no limitations History of Present Illness Date Seen by Provider: Jun 03, 2021 Time Seen by Provider: 12:50 Initial Comments Patient is a 70-year-old male who presents to the emergency department today with a chief complaint of shortness of breath and low oxygen. Patient tells me that he has a history of congestive heart failure, he sees both Dr. Bowman at [facility] as well as Dr. Mccloud here. He has a history of prior stent placement. He has chronic kidney disease and is on daily Lasix at 20 mg a day. He states that he was sent to [facility] 3 days ago and spent 2 days in their ER as the hospital was full. He states they gave him some IV diuretic, did a stress test and echo on him and sent him home yesterday. He was scheduled to [facility] oxygen today. But went back to [facility] clinic complaining of shortness of breath where he was found to have oxygen saturations at 73%. He came up nicely on 2 L to 97%. He denies any chest pain, fevers, chills. He has occasional cough. He is Covid vaccinated. He was tested within the last 3 days negative. No significant swelling in his lower extremities. He did eat some canned green beans when he got home yesterday as well as canned corn. He does have a history of atrial fibrillation. He is anticoagulated on Eliquis 5 mg twice daily. Is in no distress at presentation. All other review of systems reviewed and negative except as stated Timing/Duration: week Severity: moderate Prior Episodes/Possible Cause: occasional episodes Modifying Factors: Worse With Activity Associated Symptoms: cough (occasional), shortness of breath Allergies and Home Medications Allergies Coded Allergies: Sulfa (Sulfonamide Antibiotics) (Unverified Allergy, Unknown, N/V, 08/16/17) codeine (Unverified Allergy, Unknown, N/V ABD PAIN, 08/16/17) Patient Home Medication List Home Medication List Reviewed: Yes Amiodarone HCl (Amiodarone HCl) 200 Mg Tablet, 200 MG PO BID, (Reported) Entered as Reported by: TREVER MORAN on 08/15/18 1200 Amlodipine Besylate (Amlodipine Besylate) 5 Mg Tablet, 5 MG PO DAILY, (Reported) Entered as Reported by: ELIZABETH LEWIS on 08/16/17 09 Apixaban (Eliquis) 5 Mg Tablet, 5 MG PO BID, (Reported) Entered as Reported by: TREVER MORAN on 10/21/19 1533 Aspirin (Aspirin) 81 Mg Tab.chew, 81 MG PO DAILY, (Reported) Entered as Reported by: ELIZABETH LEWIS on 08/16/17 09 Atorvastatin Calcium (Atorvastatin Calcium) 20 Mg Tablet, 20 MG PO HS, (Reported) Entered as Reported by: ELIZABETH LEWIS on 08/16/17 09 Canagliflozin/Metformin HCl (Invokamet 150-1,000 mg Tablet) 1 Each Tablet, 2 EACH PO DAILY, (Reported) Entered as Reported by: TREVER MORAN on 10/21/19 1533 Esomeprazole Magnesium (Esomeprazole Magnesium) 40 Mg Capsule.dr, 40 MG PO DAILY, (Reported) Entered as Reported by: ZACK CONDE on 01/18/21 1246 Levothyroxine Sodium (Levothyroxine Sodium) 88 Mcg Tablet, 88 MCG PO DAILY, (Reported) Entered as Reported by: ELIZABETH LEWIS on 12/22/15 0943 Losartan/Hydrochlorothiazide (Hyzaar 100-25 Tablet) 1 Each Tablet, 1 EACH PO DAILY, (Reported) Entered as Reported by: TREVER MORAN on 08/15/18 1200 Multivitamin (Multivitamins) 1 Each Tablet, 1 EACH PO DAILY, (Reported) Entered as Reported by: ELIZABETH LEWIS on 08/16/17 09 Review of Systems Review of Systems Constitutional: see HPI EENTM: no symptoms reported Respiratory: cough, dyspnea on exertion, short of breath Cardiovascular: no symptoms reported Gastrointestinal: no symptoms reported Genitourinary: no symptoms reported Musculoskeletal: no symptoms reported Skin: no symptoms reported Psychiatric/Neurological: No Symptoms Reported All Other Systems Reviewed Negative Unless Noted: Yes Past Qiototi-Seqhmh-Kowdpy Hx Immunizations Up To Date Tetanus Booster (TDap): More than 5yrs Seasonal Allergies Seasonal Allergies: No Past Medical History Surgeries: Yes (TRAUMA TO RT WRIST, BILAT KNEE SCOPE, TRAUMA LT ELBOW, colon resection) Appendectomy, Gallbladder Respiratory: No Cardiac: Yes (HEART CATH WITH STENTS X2-2013) Coronary Artery Disease, High Cholesterol, Hypertension Neurological: No Reproductive Disorders: No Sexually Transmitted Disease: No HIV/AIDS: No Genitourinary: No Kidney Stones Gastrointestinal: Yes (COLON CA) Hemorrhoids, Polyps, Ulcer Musculoskeletal: Yes Degenerate Disk Disease, Arthritis, Chronic Back Pain Endocrine: Yes Hypothyroidsim, Diabetes, Non-Insulin dep HEENT: No Loss of Vision: Bilateral Hearing Impairment: Denies Cancer: Yes Colon Did You Recieve Any Treatments: Yes What Type of Treatment Did You: Chemotherapy, Surgical Intervention Psychosocial: No Anxiety Integumentary: No (MRSA RIGHT LEG 2002) Blood Disorders: No Adverse Reaction/Blood Tranf: No (N/A) Family Medical History No Pertinent Family Hx Physical Exam Capillary Refill : Height: 5'8.00" Weight: 279lbs. 0.0oz. 126.703145pd; 43.43 BMI Method:Stated General Appearance: WD/WN, no apparent distress Eyes: Bilateral Eye Normal Inspection, Bilateral Eye PERRL, Bilateral Eye EOMI HEENT: PERRL/EOMI Neck: normal inspection Respiratory: normal breath sounds, no respiratory distress, no accessory muscle use, crackles (at bases bilaterally) Cardiovascular: irregularly irregular (60's) Gastrointestinal: normal bowel sounds, non tender, soft Extremities: normal range of motion, non-tender, pedal edema (1+ bilaterally) Neurologic/Psychiatric: alert, normal mood/affect, oriented x 3 Skin: warm/dry, pallor Progress/Results/Core Measures Suspected Sepsis SIRS Temperature: Pulse: Respiratory Rate: Laboratory Tests 06/03/21 12:45: White Blood Count 8.2 Blood Pressure / Mean: Laboratory Tests 06/03/21 12:45: Creatinine 1.67H, Platelet Count 213 Results/Orders Lab Results Laboratory Tests Test 06/03/21 12:45 Range/Units White Blood Count 8.2 4.3-11.0 10^3/uL Red Blood Count 2.75 L 4.30-5.52 10^6/uL Hemoglobin 8.0 L 13.3-17.7 g/dL Hematocrit 27 L 40-54 % Mean Corpuscular Volume 99 80-99 fL Mean Corpuscular Hemoglobin 29 25-34 pg Mean Corpuscular Hemoglobin Concent 30 L 32-36 g/dL Red Cell Distribution Width 18.1 H 10.0-14.5 % Platelet Count 213 130-400 10^3/uL Mean Platelet Volume 9.8 9.0-12.2 fL Immature Granulocyte % (Auto) 1 % Neutrophils (%) (Auto) 72 42-75 % Lymphocytes (%) (Auto) 9 L 12-44 % Monocytes (%) (Auto) 10 0-12 % Eosinophils (%) (Auto) 7 0-10 % Basophils (%) (Auto) 0 0-10 % Neutrophils # (Auto) 5.9 1.8-7.8 10^3/uL Lymphocytes # (Auto) 0.8 L 1.0-4.0 10^3/uL Monocytes # (Auto) 0.8 0.0-1.0 10^3/uL Eosinophils # (Auto) 0.6 H 0.0-0.3 10^3/uL Basophils # (Auto) 0.0 0.0-0.1 10^3/uL Immature Granulocyte # (Auto) 0.1 0.0-0.1 10^3/uL Sodium Level 139 135-145 MMOL/L Potassium Level 4.4 3.6-5.0 MMOL/L Chloride Level 106 98-107 MMOL/L Carbon Dioxide Level 21 21-32 MMOL/L Anion Gap 12 5-14 MMOL/L Blood Urea Nitrogen 29 H 7-18 MG/DL Creatinine 1.67 H 0.60-1.30 MG/DL Estimat Glomerular Filtration Rate 41 BUN/Creatinine Ratio 17 Glucose Level 105 70-105 MG/DL Calcium Level 9.2 8.5-10.1 MG/DL B-Type Natriuretic Peptide 338.7 H <100.0 PG/ML My Orders Orders - ADARSH PEÑA MD Ed Iv/Invasive Line Start (06/03/21 13:02) Cbc With Automated Diff (06/03/21 13:02) Basic Metabolic Panel (06/03/21 13:02) Bnp [place] (06/03/21 13:02) Chest 1 View, Ap/Pa Only (06/03/21 13:02) Ekg Tracing (06/03/21 13:02) Furosemide Injection (Lasix Injection) (06/03/21 15:00) Medications Given in ED Current Medications Medications Dose Ordered Sig/Lukas Route Start Time Stop Time Status Last Admin Dose Admin Furosemide 20 mg ONCE ONCE IVP 06/03/21 15:00 06/03/21 15:01 DC 06/03/21 15:55 20 MG Vital Signs/I&O Capillary Refill : Progress Note #1: Time: 15:17 Progress Note Reevaluated patient, he is resting comfortably at 99% oxygen on 3 L per nasal cannula. His chest x-ray shows a little increased pulmonary vascular congestion and scant alveolar type infiltrate. He has no elevated white blood cell count. He is slightly anemic with a hemoglobin of 8. His renal function is at its baseline. His BNP is actually lower than previous. I have been awaiting medical records from [facility] from his hospitalization over the last 2 days but have been unsuccessful in getting those. I am going to give him 1 extra dose of Lasix 20 mg here. [facility] is going to bring his oxygen here to the emergency department. We will discharge him to home on that. He states that he has an appointment with Dr. Trevino on 13 June. He also will get some outpatient labs done and follow-up with Dr. Abiodun rich in June. He has no clinical or objective findings to warrant further treatment from the emergency department. I have counseled him on salt intake that this will increase his fluid retention and make him more short of breath. They are to avoid canned veggies and excess salt. Patient verbalized understanding. All questions have been sought and answered. Patient is stable for discharge. Progress Note #2: Time: 16:20 Progress Note Maged here to set up his oxygen. He is all set up and ready for discharge. ECG Initial ECG Impression Date: Jun 03, 2021 Initial ECG Impression Time: 14:14 Initial ECG Rate: 54 Initial ECG Rhythm: A Fib/Flutter (vs junctional) Initial ECG Impression: Atrial Fibrillation Diagnostic Imaging Diagonstic Imaging: Xray Plain Films/CT/US/NM/MRI: chest Comments [facility], [place] NAME: JENNIFER OR[facility]GA [facility] REC#: [id number] PT STATUS: REG ER : 1950 PHYSICIAN: ADARSH PEÑA MD ADMIT DATE: 06/03/21/ER Signed Date of Exam:06/03/21 CHEST 1 VIEW, AP/PA ONLY INDICATION: 70-year-old male with cough, shortness of breath, and decreased O2 saturation with hypoxia. COMPARISONS: None. FINDINGS: Single view of the chest shows the cardiac contour to be upper limits of normal. There is mild central venous congestion. Few scattered alveolar infiltrates are seen but no significant consolidations present. There is no effusion or pneumothorax. Film is slightly underpenetrated. Soft tissues and bony thorax are unremarkable. IMPRESSION: Osnc-pu-cxvksdpy central venous congestion accentuated by the portable technique and low lung volumes. There are superimposed scattered alveolar infiltrates but no confluent consolidations. The chest is otherwise senescent. Dictated by: Dictated on workstation # [id number] Dict: 06/03/21 1327 Trans: 06/03/21 1347 [id number] Interpreted by: GENIE SPARKS MD Electronically signed by: GENIE SPARKS MD 06/03/21 1347 Departure Impression Primary Impression: Shortness of breath Additional Impressions: Congestive heart failure Qualified Codes: I50.9 - Heart failure, unspecified Chronic kidney disease Qualified Codes: N18.9 - Chronic kidney disease, unspecified Disposition: 01 HOME, SELF-CARE Condition: Stable Departure-Patient Inst. Decision time for Depature: 15:20 Referrals: GEREMIAS TREVINO MD (PCP/Family) Primary Care Physician Patient Instructions: Heart Failure ED Add. Discharge Instructions: You need to avoid extra salt in your diet, this can be found in regular canned v egetables specifically. Always look for the "no salt added" vegetables. Continue your Lasix every day as prescribed. Try and do daily weights at home and keep a record. Use your oxygen at home as directed. Please come back to the emergency room if you notice that you are starting to gain weight, if you have increasing oxygen requirements, increased swelling in your legs, chest pain, tightness or pressure or any other emergent concerning symptoms. Please follow-up with your kidney doctor, your heart doctor and your primary care doctor as scheduled. ADARSH PEÑA MD Jun 03, 2021 13:06
[2021-06-03 13:08] LABS: BASOPHILS % (AUTO) 0 % (0-10); EOSINOPHILS # (AUTO) 0.6 10^3/uL (0.0-0.3); EOSINOPHILS % (AUTO) 7 % (0-10); HEMATOCRIT 27 % (40-54); LYMPHOCYTES # (AUTO) 0.8 10^3/uL (1.0-4.0); LYMPHOCYTES % (AUTO) 9 % (12-44); MEAN CORPUSCULAR HEMOGLOBIN 29 pg (25-34); MEAN CORPUSCULAR HGB CONC 30 g/dL (32-36); MEAN CORPUSCULAR VOLUME 99 fL (80-99); MEAN PLATELET VOLUME 9.8 fL (9.0-12.2); MONOCYTES # (AUTO) 0.8 10^3/uL (0.0-1.0); MONOCYTES % (AUTO) 10 % (0-12); NEUTROPHILS # (AUTO) 5.9 10^3/uL (1.8-7.8); NEUTROPHILS % (AUTO) 72 % (42-75); PLATELET COUNT 213 10^3/uL (130-400); WHITE BLOOD COUNT 8.2 10^3/uL (4.3-11.0)
[2021-06-03 13:11] LABS: POTASSIUM 4.4 MMOL/L (3.6-5.0)
[2021-06-03 13:12] LABS: CALCIUM 9.2 MG/DL (8.5-10.1)
[2021-06-03 13:16] LABS: CREATININE SERUM 1.67 MG/DL (0.60-1.30)
--- NOTE | 2021-06-03 13:41 | Diagnostic Imaging Report ---
INDICATION: 70-year-old male with cough, shortness of breath, and decreased O2 saturation with hypoxia. COMPARISONS: None. FINDINGS: Single view of the chest shows the cardiac contour to be upper limits of normal. There is mild central venous congestion. Few scattered alveolar infiltrates are seen but no significant consolidations present. There is no effusion or pneumothorax. Film is slightly underpenetrated. Soft tissues and bony thorax are unremarkable. IMPRESSION: [id number] central venous congestion accentuated by the portable technique and low lung volumes. There are superimposed scattered alveolar infiltrates but no confluent consolidations. The chest is otherwise senescent. Dictated by: Dictated on workstation # [id number]
[2021-06-03] MEDS ORDERED: FUROSEMIDE 40 MG/4 ML INJ (LASIX) IVP ONE (15:00)
== END 2021-06-03 16:49 | disposition home or self-care (01) ==
LOC: EDUNIT# 12:26 → ER 12:27
DX: R06.02 Shortness of breath (principal); I13.0 Hypertensive heart and chronic kidney disease with heart failure and stage 1 through stage 4 chronic kidney disease, or unspecified chronic kidney disease; I50.9 Heart failure, unspecified; N18.9 Chronic kidney disease, unspecified; E11.22 Type 2 diabetes mellitus with diabetic chronic kidney disease; E78.00 Pure hypercholesterolemia, unspecified; I25.10 Atherosclerotic heart disease of native coronary artery without angina pectoris; E03.9 Hypothyroidism, unspecified; I48.91 Unspecified atrial fibrillation; Z79.84 Long term (current) use of oral hypoglycemic drugs; Z79.01 Long term (current) use of anticoagulants; Z79.82 Long term (current) use of aspirin; Z79.899 Other long term (current) drug therapy; Z79.890 Hormone replacement therapy
CPT/HCPCS: 36415; 71045; 80048; 83880; 85025; 93005

== ENCOUNTER 2021-07-18 11:01 | Outpatient (RCR) | payer MEDICARE, MEDICAID ==
[2021-07-11 10:50] VITALS: BP 161/58
[2021-07-18] MEDS ORDERED: IRON SUCROSE 200 MG/10 ML (VENOFER) VIAL IV SCH (11:52)
[2021-07-18] MEDS ORDERED: IRON SUCROSE 200 MG/10 ML (VENOFER) VIAL IV ONE (12:00)
== END 2021-08-08 | disposition home or self-care (01) ==
LOC: SDC 11:01
PROVIDERS: ATTEND Internal Medicine Nephrology
DX: Z53.9 Procedure and treatment not carried out, unspecified reason (principal)

== ENCOUNTER → 2021-08-02 | Outpatient (CLI) | payer MEDICARE, MEDICAID ==
[2021-08-02 15:02] LABS: BASOPHILS % (AUTO) 0 % (0-10); EOSINOPHILS # (AUTO) 0.2 10^3/uL (0.0-0.3); EOSINOPHILS % (AUTO) 3 % (0-10); HEMATOCRIT 26 % (40-54); HEMOGLOBIN 7.7 g/dL (13.3-17.7); LYMPHOCYTES # (AUTO) 0.5 10^3/uL (1.0-4.0); LYMPHOCYTES % (AUTO) 6 % (12-44); MEAN CORPUSCULAR HEMOGLOBIN 29 pg (25-34); MEAN CORPUSCULAR HGB CONC 30 g/dL (32-36); MEAN CORPUSCULAR VOLUME 98 fL (80-99); MEAN PLATELET VOLUME 10.2 fL (9.0-12.2); MONOCYTES # (AUTO) 0.6 10^3/uL (0.0-1.0); MONOCYTES % (AUTO) 8 % (0-12); NEUTROPHILS # (AUTO) 6.7 10^3/uL (1.8-7.8); NEUTROPHILS % (AUTO) 83 % (42-75); PLATELET COUNT 149 10^3/uL (130-400); WHITE BLOOD COUNT 8.1 10^3/uL (4.3-11.0)
[2021-08-02 15:28] LABS: BAND NEUTROPHILS 0 %; BASOPHILS % (MANUAL) 0 %; EOSINOPHILS % (MANUAL) 4 %; LYMPHOCYTES % (MANUAL) 7 %; MONOCYTES % (MANUAL) 7 %; NEUTROPHILS % (MANUAL) 82 %
[2021-08-02 15:29] LABS: ALBUMIN 3.8 GM/DL (3.2-4.5); ANISOCYTOSIS MODERATE; BILIRUBIN,TOTAL 0.9 MG/DL (0.1-1.0); CALCIUM 9.4 MG/DL (8.5-10.1); CREATININE SERUM 1.53 MG/DL (0.60-1.30); ELLIPT/OVALOCYTES MODERATE; POLYCHROMASIA MODERATE; POTASSIUM 4.6 MMOL/L (3.6-5.0); SCHISTOCYTES SLIGHT; TOTAL PROTEIN 7.3 GM/DL (6.4-8.2)
== END ==
LOC: LAB 14:37
PROVIDERS: ATTEND Family Medicine
DX: I50.9 Heart failure, unspecified (principal); N18.30 Chronic kidney disease, stage 3 unspecified
CPT/HCPCS: 36415; 80053; 82728; 83540; 83550; 83880; 85007; 85027

== ENCOUNTER → 2021-09-08 | Outpatient (CLI) | payer MEDICARE, MEDICAID ==
[2021-09-08 10:26] LABS: HEMATOCRIT 25 % (40-54); HEMOGLOBIN 7.3 g/dL (13.3-17.7); MEAN CORPUSCULAR HEMOGLOBIN 28 pg (25-34); MEAN CORPUSCULAR HGB CONC 29 g/dL (32-36); MEAN CORPUSCULAR VOLUME 95 fL (80-99); MEAN PLATELET VOLUME 8.4 fL (9.0-12.2); PLATELET COUNT 207 10^3/uL (130-400); WHITE BLOOD COUNT 7.5 10^3/uL (4.3-11.0)
[2021-09-08 10:47] LABS: ALBUMIN 3.8 GM/DL (3.2-4.5); BILIRUBIN,TOTAL 0.7 MG/DL (0.1-1.0); CALCIUM 9.1 MG/DL (8.5-10.1); CREATININE SERUM 1.74 MG/DL (0.60-1.30); POTASSIUM 4.9 MMOL/L (3.6-5.0); TOTAL PROTEIN 7.2 GM/DL (6.4-8.2)
--- NOTE | 2021-09-08 10:58 | Diagnostic Imaging Report ---
INDICATION: Difficulty breathing. Time of Exam: 10:29 AM Comparison is made with prior chest 06/03/2021. FINDINGS: The heart is enlarged but stable. There is central congestion noted. There are some patchy airspace infiltrates in the perihilar regions bilaterally. There is slight blunting of the posterior sulci on lateral view consistent with small effusions. No pneumothorax is seen. IMPRESSION: There are some congestive changes with bilateral infiltrates and trace effusions. Dictated by: Dictated on workstation # [id number]
== END ==
LOC: RAD 10:01
PROVIDERS: ATTEND Internal Medicine Cardiovascular Disease
DX: I48.20 Chronic atrial fibrillation, unspecified (principal); I25.10 Atherosclerotic heart disease of native coronary artery without angina pectoris; I65.23 Occlusion and stenosis of bilateral carotid arteries; I10 Essential (primary) hypertension; E78.2 Mixed hyperlipidemia
CPT/HCPCS: 36415; 71046; 80053; 80061; 84443; 85027

== ENCOUNTER → 2021-09-15 | Outpatient (CLI) | payer MEDICARE, MEDICAID | LOC: CARD 09:25 | PROVIDERS: ATTEND Internal Medicine Cardiovascular Disease | DX: I08.1 Rheumatic disorders of both mitral and tricuspid valves (principal); J90 Pleural effusion, not elsewhere classified; I10 Essential (primary) hypertension; I25.10 Atherosclerotic heart disease of native coronary artery without angina pectoris | CPT/HCPCS: 93306 ==

== ENCOUNTER → 2021-10-05 | Outpatient (CLI) | payer MEDICARE, MEDICAID ==
[~2021-10-05] VITALS: Ht 172 cm; Wt 127.0 kg
[~2021-10-05] MED LIST changes: +REGADENOSON 0.4 MG/5 ML SYR (LEXISCAN) IV ONE
[2021-10-05] MEDS: CATHETER FLUSH 10 ML SYR IVP PRN ×2 (12:00→13:08)
[2021-10-05 13:07] VITALS: BP 164/65
--- NOTE | 2021-10-05 14:52 | Cardiology Stress Test Report ---
Stress Test Report Date of Procedure/Referring: Date of Procedure: Oct 05, 2021 PCP Michelle Mccloud MD Admitting Physician Ana Maria Currie MD Indications: CP Baseline Heart Rate: 64 Baseline Blood Pressure: Blood Pressure Systolic: 164 Blood Pressure Diastolic: 65 Baseline Vitals Vital Signs Date Time Temp Pulse Resp B/P (MAP) Pulse Ox O2 Delivery O2 Flow Rate FiO2 10/05/21 13:07 69 16 164/65 (98) 97 Nasal Cannula Baseline EKG: Baseline EKG: RBBB Summary After explaining the procedure to the patient, he signed a consent and then brought to the stress nuclear laboratory. Patient received 0.4 mg Lexiscan for stress test, ECG, heart rate and blood pressure were monitored continuously. Resting and stress dose of radio tracer were injected, imaging was acquired and reviewed in short axis, horizontal long axis and vertical long axis views. TID: 0.97 SSS: 2 SDS: 2 EF: 48 1. Patient tolerated Lexiscan well 2. Baseline atrial fibrillation was right bundle branch block persisted during test 3. Diaphragmatic attenuation with mild reversible ischemia involving the inferior wall, there is reversible ischemia involving the mid to apical anterior wall. 4. Normal left ventricular size, ejection fraction 48%, gated images are unreliable due to underlying atrial fibrillation MICHELLE MCCLOUD MD Oct 05, 2021 14:52
== END ==
LOC: CARD 12:15
PROVIDERS: ATTEND Internal Medicine Cardiovascular Disease
DX: I10 Essential (primary) hypertension (principal); I25.10 Atherosclerotic heart disease of native coronary artery without angina pectoris
CPT/HCPCS: 78452; 93017; A9502

== ENCOUNTER 2021-10-19 12:44 | Day surgery (SDC) | payer MEDICARE, MEDICAID ==
[~2021-10-19] VITALS: Ht 172.2 cm; Wt 127.5 kg
[~2021-10-19 12:44] MED LIST changes: -HEParin (CATH LAB) 0 ML IV ONE; -LIDOCAINE 1% INJ 20 ML VIAL ONE; -NS IV 1000 ML 0 ML ONE; -NS IV 1000 ML 1,000 ML IV SCH; -PANT40TA2 PO
[2021-10-19] MEDS ORDERED: LACTATED RINGERS 1,000 ML IV STA (13:11)
[2021-10-19] MEDS ORDERED: HURRICAINE EXT TUBE (BENZOCAINE) XX PRN (13:15)
[2021-10-19] MEDS ORDERED: LACTATED RINGERS 1,000 ML IV ONE (13:19)
[2021-10-19 13:31] VITALS: BP 167/83
[2021-10-19] MEDS ORDERED: proPOfol 200 MG/20 ML (DIPRIVAN) VIAL IV ONE (13:57)
[2021-10-19 14:30] VITALS: BP 147/78
--- NOTE | 2021-10-19 14:31 | Anesthesia-General Post-Op ---
MAC Patient Condition Mental Status/LOC: Same as Preop Cardiovascular: Satisfactory Nausea/Vomiting: Absent Respiratory: Satisfactory Pain: Controlled Complications: Absent Post Op Complications Complications None Follow Up Care/Instructions Patient Instructions None needed. Anesthesiology Discharge Order Discharge Order Patient is doing well, no complaints, stable vital signs, no apparent adverse anesthesia problems. No complications reported per nursing. MONICA PAZ CRNA October 19, 2021 14:31
[2021-10-19 14:35] VITALS: BP 112/55
[2021-10-19] MEDS ORDERED: PANT40TA2 PO (14:55)
--- NOTE | 2021-10-19 14:56 | Discharge Inst-Simple/Standard ---
Discharge Inst-Standard Discharge Medications New, Converted or Re-Newed RX: Transmitted to Pharmacy Patient Instructions/Follow Up Plan of Care/Instructions/FU: 2 weeks Laurie Activity as Tolerated: Yes Discharge Diet: Regular Diet EBONY VALDEZ DO October 19, 2021 14:56
[2021-10-19 15:00] VITALS: BP 165/78
[2021-10-19 15:55] VITALS: BP 165/78
--- NOTE | 2021-10-19 23:36 | OPERATIVE REPORT ---
DATE OF SERVICE: 10/19/2021 PREOPERATIVE DIAGNOSIS: Iron deficiency anemia. POSTOPERATIVE DIAGNOSIS: Gastritis. PROCEDURE: Esophagogastroduodenoscopy with biopsy of the body of the stomach. SURGEON: Ebony Sullivan DO ANESTHESIA: Per SERVICE SHOP FOREMAN. ESTIMATED BLOOD LOSS: None. COMPLICATIONS: None. INDICATIONS: The patient is a 71-year-old male going for heart catheterization today. He was found to have iron deficiency anemia. He understands Dr. Mccloud, who has requested that EGD be performed for further evaluation since he is n.p.o. The patient understands risks and benefits of procedure and wishes to proceed. Consent was signed in the chart. DESCRIPTION OF PROCEDURE: The patient was taken to the endoscopy suite, placed in left lateral recumbent position. Timeout was performed. Scope was inserted in mouth, down the esophagus into the stomach without difficulty and also into the duodenum without difficulty. In the duodenum, there were no polyps, masses or ulcerations. Scope was retracted back into the stomach where it was further insufflated. Significant gastritis present throughout the entire stomach; biopsy of body was obtained. Also some small benign-appearing polyps. Scope was retroflexed noting again the significant gastritis. Scope was returned to its normal position, slowly withdrawn to distal esophagus. No polyps, masses or ulcerations. Scope was slowly retracted back until completely removed, noting no other pathology. The patient tolerated the procedure well without any complications, taken to recovery room in stable condition. RECOMMENDATIONS: The patient will be started on Protonix 40 mg daily. We will continue on famotidine. Await biopsy results. The patient will follow up in 2 weeks. Any issues before that will be seen at that time. Job ID: [id number] DocumentID: [id number] Dictated Date: 10/19/2021 14:59:14 Accounts Collector Date: 10/19/2021 23:35:29 Dictated By: EBONY SULLIVAN DO
== END 2021-10-19 15:25 | disposition home or self-care (01) ==
LOC: ENDO 12:44
PROVIDERS: ATTEND Surgery
DX: K29.50 Unspecified chronic gastritis without bleeding (principal); D50.9 Iron deficiency anemia, unspecified
CPT/HCPCS: 88305

== ENCOUNTER → 2021-10-19 | Day surgery (SDC) | payer MEDICARE, MEDICAID ==
[~2021-10-19] VITALS: Ht 172.7 cm; Wt 127.5 kg
[~2021-10-19] MED LIST changes: +DRON400T6 PO; +FAMO40TA72 PO; +FURO20TA4 PO; +HEParin (CATH LAB) 0 ML IV ONE; +LIDOCAINE 1% INJ 20 ML VIAL ONE; +LISI5TAB20 PO; +LORA10TA72 PO; +METF-478 PO; +MUPI15CR11 TP; +NS IV 1000 ML 0 ML ONE; +NS IV 1000 ML 1,000 ML IV SCH; +PANT40TA2 PO; -REGADENOSON 0.4 MG/5 ML SYR (LEXISCAN) IV ONE
[2021-10-19 11:04] VITALS: BP 144/75
[2021-10-19 11:09] LABS: HEMATOCRIT 26 % (40-54); HEMOGLOBIN 7.6 g/dL (13.3-17.7); MEAN CORPUSCULAR HEMOGLOBIN 28 pg (25-34); MEAN CORPUSCULAR HGB CONC 30 g/dL (32-36); MEAN CORPUSCULAR VOLUME 93 fL (80-99); MEAN PLATELET VOLUME 9.4 fL (9.0-12.2); PLATELET COUNT 193 10^3/uL (130-400); WHITE BLOOD COUNT 8.5 10^3/uL (4.3-11.0)
[2021-10-19 11:21] LABS: POTASSIUM 4.4 MMOL/L (3.6-5.0)
[2021-10-19 11:22] LABS: ALBUMIN 4.2 GM/DL (3.2-4.5)
[2021-10-19 11:23] LABS: CALCIUM 9.6 MG/DL (8.5-10.1)
[2021-10-19 11:24] LABS: TOTAL PROTEIN 8.5 GM/DL (6.4-8.2)
--- NOTE | 2021-10-19 11:25 | Diagnostic Imaging Report ---
INDICATION: Cardiac disease. COMPARISON: 09/08/2021. FINDINGS: Bilateral pulmonary opacities largely interstitial may be slightly increased from prior. It is unclear if this is progressive chronic process or if there is recurrent and slightly worsened pulmonary edema. Heart size itself is stable and no overt overdistention of the vascularity. No effusion or pneumothorax. IMPRESSION: Mild increased substantial 5 lobe interstitial disease. No acute pleural pathology. Dictated by: Dictated on workstation # [id number]
[2021-10-19 11:28] LABS: CREATININE SERUM 1.78 MG/DL (0.60-1.30)
[2021-10-19 11:30] LABS: INR 1.2 (0.8-1.4)
--- NOTE | 2021-10-19 11:38 | Conscious Sedation/ASA ---
Conscious Sedation Pre-Proced Time 11:37 ASA Score 3 For ASA 3 and 4: Consider anesthesia and medical clearance. Also, for patients with a history of failed moderate sedation consider anesthesia. Airway Lungs Heart ASA score ASA 1: a normal healthy patient ASA 2: a patient with a mild systemic disease (mid diabetes, controlled hypertension, obesity x ASA 3: a patient with a severe systemic disease that limits activity (angina, COPD, prior Myocardial infarction) ASA 4: a patient with an incapacitating disease that is a constant threat to life (CHF, renal failure) ASA 5: a moribund patient not expected to survive 24 hrs. (ruptured aneurysm) ASA 6: a declared brain- patient whose organs are being harvested. For emergent operations, add the letter E after the classification Mallampati Classification Grade 3 Sedation Plan Analgesia, Amnesia, Plan communicated to team members, Discussed options with patient/fam, Discussed risks with patient/fam The patient is an appropriate candidate to undergo the planned procedure, sedation, and anesthesia. The patient immediately re-assessed prior to indication. MICHELLE MCHUGH MD October 19, 2021 11:38
== END ==
LOC: CATH 10:31
PROVIDERS: ATTEND Internal Medicine Cardiovascular Disease
DX: I25.10 Atherosclerotic heart disease of native coronary artery without angina pectoris (principal); I11.0 Hypertensive heart disease with heart failure; I48.0 Paroxysmal atrial fibrillation; I50.9 Heart failure, unspecified; R09.89 Other specified symptoms and signs involving the circulatory and respiratory systems; E78.5 Hyperlipidemia, unspecified; T44.7X5A Adverse effect of beta-adrenoreceptor antagonists, initial encounter; E11.9 Type 2 diabetes mellitus without complications; G89.29 Other chronic pain; J44.9 Chronic obstructive pulmonary disease, unspecified; E78.2 Mixed hyperlipidemia; M25.569 Pain in unspecified knee; E03.9 Hypothyroidism, unspecified; Z79.890 Hormone replacement therapy; Z85.038 Personal history of other malignant neoplasm of large intestine; Z79.899 Other long term (current) drug therapy; Z95.5 Presence of coronary angioplasty implant and graft; Z79.01 Long term (current) use of anticoagulants; Z79.84 Long term (current) use of oral hypoglycemic drugs
CPT/HCPCS: 36415; 71045; 80053; 80061; 85027; 85610; 85730; 87081; 93005

== ENCOUNTER → 2021-11-08 | Outpatient (CLI) | payer MEDICARE, MEDICAID ==
[~2021-11-08] MED LIST changes: +PANT40TA2 PO
[2021-11-08 10:56] LABS: BASOPHILS % (AUTO) 0 % (0-10); EOSINOPHILS # (AUTO) 0.3 10^3/uL (0.0-0.3); EOSINOPHILS % (AUTO) 4 % (0-10); HEMATOCRIT 23 % (40-54); LYMPHOCYTES # (AUTO) 0.6 10^3/uL (1.0-4.0); LYMPHOCYTES % (AUTO) 7 % (12-44); MEAN CORPUSCULAR HEMOGLOBIN 28 pg (25-34); MEAN CORPUSCULAR HGB CONC 30 g/dL (32-36); MEAN CORPUSCULAR VOLUME 93 fL (80-99); MEAN PLATELET VOLUME 9.6 fL (9.0-12.2); MONOCYTES # (AUTO) 0.5 10^3/uL (0.0-1.0); MONOCYTES % (AUTO) 7 % (0-12); NEUTROPHILS # (AUTO) 6.2 10^3/uL (1.8-7.8); NEUTROPHILS % (AUTO) 81 % (42-75); PLATELET COUNT 156 10^3/uL (130-400); WHITE BLOOD COUNT 7.6 10^3/uL (4.3-11.0)
[2021-11-08 10:58] LABS: ALBUMIN 4.1 GM/DL (3.2-4.5)
[2021-11-08 10:59] LABS: POTASSIUM 4.7 MMOL/L (3.6-5.0)
[2021-11-08 11:00] LABS: CALCIUM 9.6 MG/DL (8.5-10.1)
[2021-11-08 11:04] LABS: PHOSPHORUS 2.6 MG/DL (2.3-4.7)
[2021-11-08 11:05] LABS: CREATININE SERUM 2.06 MG/DL (0.60-1.30)
[2021-11-08 11:17] LABS: HEMOGLOBIN 6.8 g/dL (13.3-17.7)
[2021-11-08 11:18] LABS: LYMPHOCYTES % (MANUAL) 10 %; NEUTROPHILS % (MANUAL) 80 %
[2021-11-08 11:19] LABS: ACANTHOCYTES SLIGHT; ANISOCYTOSIS SLIGHT; ELLIPT/OVALOCYTES SLIGHT; EOSINOPHILS % (MANUAL) 4 %; MONOCYTES % (MANUAL) 8 %; POIKILOCYTOSIS SLIGHT; SCHISTOCYTES SLIGHT; TEAR DROP CELLS SLIGHT
[2021-11-08 12:19] LABS: BILIRUBIN,URINE NEGATIVE (NEGATIVE); CLARITY,URINE CLEAR; COLOR,URINE YELLOW; GLUCOSE, URINE (UA) NEGATIVE (NEGATIVE); KETONES,URINE NEGATIVE (NEGATIVE); LEUKOCYTE ESTERASE ,URINE NEGATIVE (NEGATIVE); NITRITE,URINE NEGATIVE (NEGATIVE); PROTEIN,URINE 1+ (NEGATIVE)
[2021-11-08 12:34] LABS: BACTERIA,URINE NEGATIVE /HPF; RBC,URINE 25-50 /HPF; SQUAMOUS EPITHELIAL CELL,UR 0-2 /HPF; WBC,URINE RARE /HPF
== END ==
LOC: LAB
PROVIDERS: ATTEND Internal Medicine Nephrology
DX: I12.9 Hypertensive chronic kidney disease with stage 1 through stage 4 chronic kidney disease, or unspecified chronic kidney disease (principal); N18.32 Chronic kidney disease, stage 3b; D63.1 Anemia in chronic kidney disease; I48.0 Paroxysmal atrial fibrillation; I25.10 Atherosclerotic heart disease of native coronary artery without angina pectoris
CPT/HCPCS: 36415; 80069; 81000; 82306; 82570; 82728; 83540; 83550; 83970; 84156; 85007; 85027

== ENCOUNTER 2021-11-28 11:30 | Outpatient (CLI) | payer MEDICARE, MEDICAID ==
[~2021-11-28] VITALS: Ht 172.7 cm; Wt 112.0 kg
== END 2021-11-28 11:59 | disposition home or self-care (01) ==
LOC: PREOP 11:30
PROVIDERS: ATTEND Surgery
DX: Z01.818 Encounter for other preprocedural examination (principal)

== ENCOUNTER 2021-11-29 09:40 | Day surgery (SDC) | payer MEDICARE, MEDICAID ==
[~2021-11-29] VITALS: Ht 172.7 cm; Wt 112.0 kg
[2021-11-29] MEDS ORDERED: LACTATED RINGERS 1,000 ML IV ONE (09:50)
[2021-11-29] MEDS ORDERED: LACTATED RINGERS 1,000 ML IV STA (09:52)
[2021-11-29 10:30] VITALS: BP 143/66
--- NOTE | 2021-11-29 10:56 | Progress Note-Pre Operative ---
Pre-Operative Progress Note H&P Reviewed The H&P was reviewed, patient examined and no changes noted. Date Seen by Provider: Nov 29, 2021 Time Seen by Provider: 10:56 Date H&P Reviewed: Nov 29, 2021 Time H&P Reviewed: 10:56 Pre-Operative Diagnosis: iron def anemia EBONY VALDEZ DO Nov 29, 2021 10:56
[2021-11-29] MEDS ORDERED: PROPOFOL INJECTION 50 ML IV ONE (11:16)
--- NOTE | 2021-11-29 11:52 | Anesthesia-General Post-Op ---
MAC Patient Condition Mental Status/LOC: Same as Preop Cardiovascular: Satisfactory Nausea/Vomiting: Absent Respiratory: Satisfactory Pain: Controlled Complications: Absent Post Op Complications Complications None Follow Up Care/Instructions Patient Instructions None needed. Anesthesiology Discharge Order Discharge Order Patient is doing well, no complaints, stable vital signs, no apparent adverse anesthesia problems. No complications reported per nursing. FRANCISCO VANEGAS CRNA Nov 29, 2021 11:52
[2021-11-29 11:55] VITALS: BP 86/50
--- NOTE | 2021-11-29 11:55 | Progress Note-Post Operative ---
Post-Operative Progess Note Surgeon (s)/Dry Cure Worker (s) Surgeon EBONY VALDEZ DO Dry Cure Worker: na Pre-Operative Diagnosis iron def anemia Post-Operative Diagnosis cecal polyp, poor prep Procedure & Operative Findings Date of Procedure 11/29/21 Procedure Performed/Findings colonoscopy c hot bx polypectomy Anesthesia Type per postal worker Estimated Blood Loss Estimated blood loss (mL): none Specimens/Packing Specimens Removed cecal polyp EBONY VALDEZ DO Nov 29, 2021 11:55
--- NOTE | 2021-11-29 11:57 | Discharge Inst-Simple/Standard ---
Discharge Inst-Standard Patient Instructions/Follow Up Plan of Care/Instructions/FU: Hold anticoagulation today and tomorrow. Repeat prep instructions today and nothing to drink after midnight. Plan on repeating scope tomorrow. Activity as Tolerated: Yes Discharge Diet: Liquid Diet (clear liquids today and nothing to drink after midnight.) EBONY VALDEZ DO Nov 29, 2021 11:57
[2021-11-29 12:00] VITALS: BP 91/50
[2021-11-29 12:03] VITALS: BP 101/53
[2021-11-29 12:25] VITALS: BP 125/62
--- NOTE | 2021-11-29 21:30 | OPERATIVE REPORT ---
DATE OF SERVICE: 11/29/2021 PREOPERATIVE DIAGNOSIS: Iron deficiency anemia. POSTOPERATIVE DIAGNOSES: Cecal polyp, poor prep. PROCEDURE: Colonoscopy with hot biopsy polypectomy x1. SURGEON: Ebony Sullivan DO ANESTHESIA: Per LIVESTOCK SHOWMAN. ESTIMATED BLOOD LOSS: None. COMPLICATIONS: None. INDICATIONS: The patient is a 71-year-old male with iron deficiency anemia. He understands risks and benefits of procedure and wishes to proceed. Consent was signed in the chart. DESCRIPTION OF PROCEDURE: The patient was taken to the endoscopy suite, placed in left lateral recumbent position. Timeout was performed. Digital rectal exam was performed. No palpable polyps, masses or ulcerations. Scope was inserted in the rectum and started to be advanced all the way to cecum. There was poor prep throughout the majority of the colon. Lots of irrigation was used to start to irrigate the cecum, a small polyp was present in the cecum, which hot biopsy polypectomy was performed. Scope was then slowly retracted back. Lots of irrigation was used, but the colon was not cleaning for adequate visualization. Continued to be used lot of irrigation and suction. Again, not making much improvement. Scope was then slowly retracted back. There was no gross pathology through the ascending, transverse, descending and sigmoid colon. Once in the rectum, scope was inserted and retracted a couple of times, noting no other gross pathology. Scope was slowly retracted back until completely removed. The patient tolerated the procedure well without any complications. He was taken to recovery room in stable condition. RECOMMENDATIONS: The patient will recommend repeat prep today with repeat colonoscopy tomorrow. There was no gross pathology noted, but could not adequately see the hayes of the colon for a small pathology. Further recommendations pending repeat scope. Job ID: [id number] DocumentID: [id number] Dictated Date: 11/29/2021 12:00:20 Fagot Heater Helper Date: 11/29/2021 21:29:32 Dictated By: EBONY SULLIVAN DO
== END 2021-11-29 12:45 | disposition home or self-care (01) ==
LOC: ENDO 09:40
PROVIDERS: ATTEND Surgery
DX: D12.0 Benign neoplasm of cecum (principal); D50.9 Iron deficiency anemia, unspecified; Z79.899 Other long term (current) drug therapy; Z79.01 Long term (current) use of anticoagulants; Z86.010 Personal history of colon polyps

== ENCOUNTER 2022-01-04 05:43 | Outpatient (CLI) | payer MEDICARE, MEDICAID ==
[~2022-01-04] VITALS: Ht 172.7 cm; Wt 112.9 kg
[~2022-01-04 05:43] MED LIST changes: -EMPA10TA PO; -FAMO-144 PO; -LIDOCAINE/EPI 2% 1:100,00 (XYLOCAINE) 20 ML VIAL INJ ONE; -LORA10CA PO; -OXYMETAZOLINE (AFRIN) 0.05% NA 30 ML BTL ONE; -OXYMETAZOLINE (AFRIN) 0.05% NA 30 ML BTL SCH; -OXYMETAZOLINE (AFRIN) 0.05% NA 30 ML BTL STA; -TRANEXAMIC ACID INJECTION 1,000 MG in NS (IVPB) 50 ML IV ONE
[2022-01-04] MEDS ORDERED: LORA10CA PO (10:48)
[2022-01-04] MEDS ORDERED: FAMO-144 PO (10:48)
[2022-01-04] MEDS ORDERED: EMPA10TA PO (10:48)
== END 2022-01-04 10:49 ==
LOC: PREOP 05:43
PROVIDERS: ATTEND Surgery
DX: Z01.818 Encounter for other preprocedural examination (principal)

== ENCOUNTER 2022-01-04 17:40 | Outpatient (CLI) | payer MEDICARE, MEDICAID ==
[~2022-01-04] VITALS: Ht 164 cm; Wt 110.0 kg
[~2022-01-04 17:40] MED LIST changes: +EMPA10TA PO; +FAMO-144 PO; +LORA10CA PO
[2022-01-04] MEDS ORDERED: NS IV 500 ML 500 ML ONE (18:24)
[2022-01-04 18:37] VITALS: BP 121/68
[2022-01-04 18:45] VITALS: BP 121/68
[2022-01-04 19:00] VITALS: BP 136/63
[2022-01-04 22:13] VITALS: BP 139/61
[2022-01-04 22:38] VITALS: BP 139/61
== END 2022-01-04 22:20 | disposition home or self-care (01) ==
LOC: 4THo 17:40 → 4TH 17:40 → 4THo 22:20
PROVIDERS: ATTEND Internal Medicine
DX: Z01.89 Encounter for other specified special examinations (principal)
CPT/HCPCS: 36430; 86850; 86900; 86901; 86920; P9016

== ENCOUNTER → 2022-01-04 | Emergency (ER) | payer MEDICARE, MEDICAID ==
[~2022-01-04] VITALS: Ht 173 cm; Wt 110.0 kg
[~2022-01-04] MED LIST changes: +EMPA10TA PO; +FAMO-144 PO; +LIDOCAINE/EPI 2% 1:100,00 (XYLOCAINE) 20 ML VIAL INJ ONE; +LORA10CA PO; +OXYMETAZOLINE (AFRIN) 0.05% NA 30 ML BTL ONE; +OXYMETAZOLINE (AFRIN) 0.05% NA 30 ML BTL SCH; +OXYMETAZOLINE (AFRIN) 0.05% NA 30 ML BTL STA; +TRANEXAMIC ACID INJECTION 1,000 MG in NS (IVPB) 50 ML IV ONE
--- NOTE | 2022-01-04 15:26 | ED EENT ---
History of Present Illness General Chief Complaint: Nasal Problems Stated Complaint: NOSEBLEED Nursing Triage Note: PT TO ED BY EMS WITH C/O NOSE BLEED BEGINNING 1 HR AGO AFTER BLOWING HIS NOSE. PT REPORTS HE WEARS HOME OXYGEN AND IT DRIES OUT HIS NOSE. REPORTS DIZZINESS WITH STANDING, BUT NOT WORSE THAN NORMAL. Source: patient, family () Exam Limitations: no limitations History of Present Illness Date Seen by Provider: Jan 04, 2022 Time Seen by Provider: 15:15 Initial Comments Patient is a 71-year-old male who presents to the emergency room with a chief complaint of nosebleed starting approximately 1 hour prior to arrival. He been blowing his nose. He is currently on 2-1/2 L of oxygen per nasal cannula that is not humidified. He states it dries out his nose significantly and makes it very uncomfortable. He has tried pressure since the bleeding started but not been able to get it to stop. He feels a little dizzy with standing. He is not nauseous, not short of breath. He has a nasal clamp in place on my arrival. No recent illnesses. He is on Eliquis. All other review of systems reviewed and negative except as stated. Timing/Duration: abrupt Severity: moderate Location: nose Prearrival Treatment: squeezing nostrils Modifying Factors: Worse With Oxygen Associated Symptoms: cough, nasal congestion/drainage Allergies and Home Medications Allergies Coded Allergies: Sulfa (Sulfonamide Antibiotics) (Unverified Allergy, Unknown, N/V, 08/16/17) codeine (Unverified Allergy, Unknown, N/V ABD PAIN, 08/16/17) Patient Home Medication List Home Medication List Reviewed: Yes Amlodipine Besylate (Amlodipine Besylate) 5 Mg Tablet, 5 MG PO DAILY, (Reported) Entered as Reported by: ELIZABETH LEWIS on 08/16/17 0905 Apixaban (Eliquis) 5 Mg Tablet, 5 MG PO BID, (Reported) Entered as Reported by: TREVER MORAN on 10/21/19 1533 Aspirin (Aspirin) 81 Mg Tab.chew, 81 MG PO DAILY, (Reported) Entered as Reported by: ELIZABETH LEWIS on 08/16/17 0905 Atorvastatin Calcium (Atorvastatin Calcium) 20 Mg Tablet, 20 MG PO HS, (Reported) Entered as Reported by: ELIZABETH LEWIS on 08/16/17 09 Dronedarone HCl (Multaq) 400 Mg Tablet, 400 MG PO BID, (Reported) Entered as Reported by: DEIRDRE GONZALEZ on 10/19/21 112 Empagliflozin (Jardiance) 10 Mg Tablet, 10 MG PO DAILY, (Reported) Entered as Reported by: ZACK CONDE on 01/04/22 104 Famotidine (Acid Drug Regulatory Affairs Specialist (FAMOTIDINE)) 10 Mg Tablet, 10 MG PO DAILY, (Reported) Entered as Reported by: ZACK CONDE on 01/04/22 104 Furosemide (Furosemide) 20 Mg Tablet, 20 MG PO DAILY, (Reported) Entered as Reported by: DEIRDRE GONZALEZ on 10/19/21 112 Levothyroxine Sodium (Levothyroxine Sodium) 88 Mcg Tablet, 88 MCG PO DAILY, (Reported) Entered as Reported by: ELIZABETH LEWIS on 12/22/15 0943 Lisinopril (Lisinopril) 5 Mg Tablet, 5 MG PO DAILY, (Reported) Entered as Reported by: DEIRDRE GONZALEZ on 10/19/21 112 Loratadine (Claritin) 10 Mg Capsule, 10 MG PO DAILY, (Reported) Entered as Reported by: ZACK CONDE on 01/04/22 104 Metformin HCl (Metformin HCl ER) 500 Mg Tab.er.24, 1,000 MG PO BID, (Reported) Entered as Reported by: DEIRDRE GONZALEZ on 10/19/21 112 Multivitamin (Multivitamins) 1 Each Tablet, 1 EACH PO DAILY, (Reported) Entered as Reported by: ELIZABETH LEWIS on 08/16/17 09 Mupirocin Calcium (Mupirocin) 2 % Cream..g., 1 APPLIC TP PRN, (Reported) Entered as Reported by: DEIRDRE GONZALEZ on 10/19/21 112 Pantoprazole Sodium (Protonix) 40 Mg Tablet.dr, 40 MG PO DAILY Prescribed by: EBONY VALDEZ on 10/19/21 1455 Review of Systems Review of Systems Constitutional: see HPI Eyes: No Symptoms Reported Ears: No Symptoms Reported Nose: clots, epistaxis, bloody discharge Mouth: no symptoms reported Throat: no symptoms reported Respiratory: no symptoms reported Cardiovascular: no symptoms reported Gastrointestinal: no symptoms reported All Other Systems Reviewed Negative Unless Noted: Yes Past Ehavyij-Wdscff-Qvvohc Hx Immunizations Up To Date Tetanus Booster (TDap): More than 5yrs First/Initial COVID19 Vaccinat: AUGUST/2020 Second COVID19 Vaccination Cr: SEPTEMBER/2020 Third COVID19 Vaccination Date: MARCH/2021 Seasonal Allergies Seasonal Allergies: No Past Medical History Surgeries: Yes (TRAUMA TO RT WRIST, BILAT KNEE SCOPE, TRAUMA LT ELBOW, colon resection) Appendectomy, Bowel Surgery, Gallbladder, Orthopedic Respiratory: Yes (WEARS CONT O2 AT 3.5L/NC) Cardiac: Yes (HEART CATH WITH STENTS X2-2012) Coronary Artery Disease, High Cholesterol, Hypertension Neurological: No Reproductive Disorders: No Sexually Transmitted Disease: No HIV/AIDS: No Genitourinary: No Kidney Stones Gastrointestinal: Yes (COLON CA) Hemorrhoids, Polyps, Ulcer Musculoskeletal: Yes Degenerate Disk Disease, Arthritis, Chronic Back Pain Endocrine: Yes Hypothyroidsim, Diabetes, Non-Insulin dep HEENT: No Loss of Vision: Bilateral Hearing Impairment: Denies Cancer: Yes Colon Did You Recieve Any Treatments: Yes What Type of Treatment Did You: Chemotherapy, Surgical Intervention Psychosocial: No Anxiety Integumentary: No (MRSA RIGHT LEG 2002) Blood Disorders: No Adverse Reaction/Blood Tranf: No (N/A) Family Medical History No Pertinent Family Hx Physical Exam Vital Signs Vital Signs - First Documented 01/04/22 14:47 Temp 36.3 Pulse 64 Resp 16 B/P (MAP) 121/50 (73) Pulse Ox 99 O2 Delivery OxyMask Height, Weight, BMI Height: 5'8.00" Weight: 279lbs. 0.0oz. 126.046179ds; 36.00 BMI Method:Stated General Appearance: WD/WN, no apparent distress Eyes: bilateral eye PERRL, bilateral eye EOMI, bilateral eye conjunctivae pale Nose: active bleeding (mild) Mouth/Throat: other (posterior pharynx - small clots - no profuse bleeding; pale gums) Neck: normal inspection Cardiovascular: regular rate, rhythm, other (distal pulses intact) Respiratory: lungs clear, normal breath sounds, no respiratory distress, no accessory muscle use Gastrointestinal: soft Neurologic/Psychiatric: alert, normal mood/affect, oriented x 3 Skin: normal color, warm/dry Progress/Results/Core Measures Results/Orders Lab Results Laboratory Tests Test 01/04/22 17:00 Range/Units White Blood Count 9.7 4.3-11.0 10^3/uL Red Blood Count 2.41 L 4.30-5.52 10^6/uL Hemoglobin 6.7 *L 13.3-17.7 g/dL Hematocrit 23 L 40-54 % Mean Corpuscular Volume 93 80-99 fL Mean Corpuscular Hemoglobin 28 25-34 pg Mean Corpuscular Hemoglobin Concent 30 L 32-36 g/dL Red Cell Distribution Width 17.5 H 10.0-14.5 % Platelet Count 170 130-400 10^3/uL Mean Platelet Volume 9.4 9.0-12.2 fL Immature Granulocyte % (Auto) 0 % Neutrophils (%) (Auto) 82 H 42-75 % Lymphocytes (%) (Auto) 6 L 12-44 % Monocytes (%) (Auto) 7 0-12 % Eosinophils (%) (Auto) 4 0-10 % Basophils (%) (Auto) 0 0-10 % Neutrophils # (Auto) 8.0 H 1.8-7.8 10^3/uL Lymphocytes # (Auto) 0.6 L 1.0-4.0 10^3/uL Monocytes # (Auto) 0.7 0.0-1.0 10^3/uL Eosinophils # (Auto) 0.4 H 0.0-0.3 10^3/uL Basophils # (Auto) 0.0 0.0-0.1 10^3/uL Immature Granulocyte # (Auto) 0.0 0.0-0.1 10^3/uL My Orders Orders - ADARSH PEÑA MD Lidocaine/Epi 2% 1:100,000 (Xylocaine/Ep (01/04/22 15:30) Tranexamic Acid Injection (Cyklokapron I (01/04/22 15:30) Oxymetazoline 0.05% Nasal [place] (Afrin 0. (01/04/22 15:36) Oxymetazoline 0.05% Nasal [place] (Afrin 0. (01/04/22 15:38) Cbc With Automated Diff (01/04/22 16:22) Manual Differential (01/04/22 17:00) Medications Given in ED Current Medications Medications Dose Ordered Sig/Lukas Route Start Time Stop Time Status Last Admin Dose Admin Lidocaine/ Epinephrine 20 ml ONCE ONCE INJ 01/04/22 15:30 01/04/22 15:31 DC 01/04/22 15:45 20 ML Tranexamic Acid 1000 mg/Sodium Chloride 60 ml @ 330 mls/hr ONCE ONCE IV 01/04/22 15:30 01/04/22 15:40 DC 01/04/22 15:45 330 MLS/HR Vital Signs/I&O 01/04/22 14:47 Temp 36.3 Pulse 64 Resp 16 B/P (MAP) 121/50 (73) Pulse Ox 99 O2 Delivery OxyMask Blood Pressure Mean: 73 Progress Progress Note : Time: 17:25 Progress Note Epistaxis controlled with a mixture of lidocaine with epi, TXA and Afrin. I also did a little touch of silver nitrate to the septum of the left nare. He has been monitored for an hour with no return of bleeding. His vital signs of been stable. He is quite pale so I checked a CBC and his hemoglobin is 6.7. I recommended that he receive a unit of packed red blood cells prior to discharge. He has a follow-up with Dr. Trevino tomorrow. We will send him up to the fourth floor for this transfusion. He is comfortable with the plan of care. All questions are sought and answered. Departure Impression Primary Impression: Epistaxis Additional Impressions: Chronic anticoagulation Anemia Qualified Codes: D64.9 - Anemia, unspecified Disposition: 01 HOME, SELF-CARE Condition: Stable Departure-Patient Inst. Decision time for Depature: 17:28 Referrals: GEREMIAS TREVINO MD (PCP/Family) Primary Care Physician Patient Instructions: Nosebleeds (DC) Add. Discharge Instructions: We are sending you up to the fourth floor to receive your blood transfusion. You can go home after this is completed. Continue all of your daily medications. Keep your follow-up appointment with Dr. Trevino tomorrow. Return to the emergency department for any new, concerning or emergent complaints. Be sure and talk to Dr. Trevino about writing an order for humidified oxygen for home. ADARSH PEÑA MD Jan 04, 2022 15:26
[2022-01-04 17:10] LABS: BASOPHILS % (AUTO) 0 % (0-10); EOSINOPHILS # (AUTO) 0.4 10^3/uL (0.0-0.3); EOSINOPHILS % (AUTO) 4 % (0-10); HEMATOCRIT 23 % (40-54); LYMPHOCYTES # (AUTO) 0.6 10^3/uL (1.0-4.0); LYMPHOCYTES % (AUTO) 6 % (12-44); MEAN CORPUSCULAR HEMOGLOBIN 28 pg (25-34); MEAN CORPUSCULAR HGB CONC 30 g/dL (32-36); MEAN CORPUSCULAR VOLUME 93 fL (80-99); MEAN PLATELET VOLUME 9.4 fL (9.0-12.2); MONOCYTES # (AUTO) 0.7 10^3/uL (0.0-1.0); MONOCYTES % (AUTO) 7 % (0-12); NEUTROPHILS % (AUTO) 82 % (42-75); PLATELET COUNT 170 10^3/uL (130-400); WHITE BLOOD COUNT 9.7 10^3/uL (4.3-11.0)
[2022-01-04 17:12] LABS: HEMOGLOBIN 6.7 g/dL (13.3-17.7)
[2022-01-04 17:45] VITALS: BP 115/51
[2022-01-04 17:45] LABS: EOSINOPHILS % (MANUAL) 6 %; HYPOCHROMASIA SLIGHT; LYMPHOCYTES % (MANUAL) 9 %; MONOCYTES % (MANUAL) 6 %; NEUTROPHILS % (MANUAL) 79 %; POIKILOCYTOSIS SLIGHT
== END ==
LOC: EDUNIT# 14:46 → ER 14:47
DX: R04.0 Epistaxis (principal); D64.9 Anemia, unspecified; Z79.01 Long term (current) use of anticoagulants; Z99.81 Dependence on supplemental oxygen
CPT/HCPCS: 36415; 85007; 85027; 99283

== ENCOUNTER 2022-01-17 11:15 | Day surgery (SDC) | payer MEDICARE, MEDICAID ==
[~2022-01-17] VITALS: Ht 173 cm; Wt 110.0 kg
[2022-01-17] MEDS ORDERED: LACTATED RINGERS 1,000 ML IV ONE (11:21)
[2022-01-17] MEDS ORDERED: LACTATED RINGERS 1,000 ML IV STA (11:25)
[2022-01-17 11:45] VITALS: BP 125/63
[2022-01-17] MEDS ORDERED: PROPOFOL INJECTION 50 ML IV ONE (13:36)
--- NOTE | 2022-01-17 14:05 | Anesthesia-General Post-Op ---
MAC Patient Condition Mental Status/LOC: Same as Preop Cardiovascular: Satisfactory Nausea/Vomiting: Absent Respiratory: Satisfactory Pain: Controlled Complications: Absent Post Op Complications Complications None Follow Up Care/Instructions Patient Instructions None needed. Anesthesiology Discharge Order Discharge Order Patient is doing well, no complaints, stable vital signs, no apparent adverse anesthesia problems. No complications reported per nursing. [place] CRNA Jan 17, 2022 14:05
[2022-01-17 14:15] VITALS: BP 104/51
--- NOTE | 2022-01-17 14:19 | Progress Note-Post Operative ---
Post-Operative Progess Note Surgeon (s)/Rate Quoting Operator (s) Surgeon EBONY VALDEZ DO Rate Quoting Operator: na Pre-Operative Diagnosis hx polyp, poor bowel prep Post-Operative Diagnosis colon polyp x 2 Procedure & Operative Findings Date of Procedure 01/17/22 Procedure Performed/Findings colonoscopy c hot bx polypectomy x 2 Anesthesia Type per guidance consultant Estimated Blood Loss Estimated blood loss (mL): none Specimens/Packing Specimens Removed descending colon polyps EBONY VALDEZ DO Jan 17, 2022 14:19
[2022-01-17 14:20] VITALS: BP 107/57
--- NOTE | 2022-01-17 14:20 | Discharge Inst-Simple/Standard ---
Discharge Inst-Standard Patient Instructions/Follow Up Plan of Care/Instructions/FU: 2 weeks Laurie Activity as Tolerated: Yes Discharge Diet: Regular Diet EBONY VALDEZ DO Jan 17, 2022 14:20
[2022-01-17 14:25] VITALS: BP 107/57
[2022-01-17 14:39] VITALS: BP 107/57
--- NOTE | 2022-01-17 22:24 | OPERATIVE REPORT ---
DATE OF SERVICE: 01/17/2022 PREOPERATIVE DIAGNOSES: History of polyps, history of poor prep POSTOPERATIVE DIAGNOSIS: Colon polyps x2. SURGEON: Ebony Sullivan DO ANESTHESIA: Per FRONT END DEVELOPER. PROCEDURE: Colonoscopy with hot polypectomy x2. ESTIMATED BLOOD LOSS: None. COMPLICATIONS: None. SPECIMENS: Descending colon polyps. INDICATIONS: The patient is a 71-year-old male needing colonoscopy. He has history of poor prep. He understands risks and benefits of procedure and wishes to proceed. Consent was signed in the chart. DESCRIPTION OF PROCEDURE: The patient was taken to the endoscopy suite, placed in left lateral recumbent position. Timeout was performed. Digital rectal exam was performed. No palpable polyps, masses or ulcerations. Scope was inserted in the rectum and advanced all the way to cecum with minimal difficulty. Prep was adequate. Scope was slowly retracted back. No polyps, masses or ulcerations within the cecum, ascending, transverse colon. In the descending colon, 2 polyps were present, which hot biopsy polypectomies were performed. Scope was then continuously retracted back. No polyps, masses or ulcerations within the remainder of the descending, sigmoid colon. Once in the rectum, scope was retroflexed noting no other pathology. Scope was returned to its normal position, slowly withdrawn until completely removed. The patient tolerated the procedure well without any complications, taken to recovery room in stable condition. RECOMMENDATIONS: The patient will follow up in 2 weeks to discuss pathology results. We would recommend repeat colonoscopy in 5 years. Any issues before that be seen at that time. Job ID: [id number] DocumentID: [id number] Dictated Date: 01/17/2022 14:22:09 Farmworker Dairy Date: 01/17/2022 22:22:42 Dictated By: EBONY SULLIVAN DO
== END 2022-01-17 14:40 | disposition home or self-care (01) ==
LOC: ENDO 11:15
PROVIDERS: ATTEND Surgery
DX: Z12.11 Encounter for screening for malignant neoplasm of colon (principal); D12.4 Benign neoplasm of descending colon; E66.9 Obesity, unspecified; Z68.36 Body mass index [BMI] 36.0-36.9, adult; Z85.038 Personal history of other malignant neoplasm of large intestine; Z86.010 Personal history of colon polyps
CPT/HCPCS: 88305

== ENCOUNTER → 2022-04-25 | Outpatient (CLI) | payer OTHER, MEDICAID ==
--- NOTE | 2022-04-25 16:22 | Diagnostic Imaging Report ---
PROCEDURE: US Renal Bilateral. TECHNIQUE: Multiple real-time grayscale images were obtained over the kidneys in various projections bilaterally. INDICATION: Chronic kidney disease. COMPARISON: CT abdomen and pelvis from 08/30/2015 FINDINGS: Kidneys are normal in size each measuring approximately 11 to 12 cm. There is no hydronephrosis on either side. Normal dromedary hump in the left kidney, which was measured by the technologist. Nonobstructing echogenic left renal stone is noted in the upper pole. Urinary bladder is normally filled without wall thickening. IMPRESSION: 1. No renal atrophy or hydronephrosis. 2. Nonobstructing left renal stones. Dictated by: Dictated on workstation # [id number]
== END ==
LOC: RAD 09:23
PROVIDERS: ATTEND Internal Medicine Nephrology
DX: N20.0 Calculus of kidney (principal); I12.9 Hypertensive chronic kidney disease with stage 1 through stage 4 chronic kidney disease, or unspecified chronic kidney disease; N18.4 Chronic kidney disease, stage 4 (severe); I25.10 Atherosclerotic heart disease of native coronary artery without angina pectoris; R60.0 Localized edema; D63.1 Anemia in chronic kidney disease; E78.6 Lipoprotein deficiency; E11.65 Type 2 diabetes mellitus with hyperglycemia; R53.83 Other fatigue
CPT/HCPCS: 76770

== ENCOUNTER 2022-05-09 14:52 | Emergency (ER) | payer OTHER, MEDICAID ==
[~2022-05-09] VITALS: Ht 172 cm; Wt 108.0 kg
--- NOTE | 2022-05-09 15:49 | ED General ---
General Chief Complaint: General Problems/Pain Stated Complaint: LOW HEMOGLOBIN Nursing Triage Note: PT STATES HE HAD LABS DRAWN YESTERDAY AND HIS HEMAGLOBIN WAS LOW AND HIS DR SENT HIM HERE. Source of Information: Patient Exam Limitations: No Limitations History of Present Illness Date Seen by Provider: May 09, 2022 Time Seen by Provider: 15:35 Initial Comments Patient is a 71-year-old male history of longstanding chronic kidney disease, diabetes presents to the emergency room stating that his internal control analyst steph blood yesterday and the office called him today and told him he needed a transfusion. He is not having any symptoms of shortness of breath or generalized weakness. He is on iron replacement and has dark stools normally. No bright red blood in urine or stool. He has had a cough for the last couple of days, saw his primary care doctor yesterday and was started on Augmentin. No complaints of pain. Was tested for flu and COVID and those were negative. Associated Systoms: Cough Allergies and Home Medications Allergies Coded Allergies: Sulfa (Sulfonamide Antibiotics) (Unverified Allergy, Unknown, N/V, 08/16/17) codeine (Unverified Allergy, Unknown, N/V ABD PAIN, 08/16/17) Patient Home Medication List Home Medication List Reviewed: Yes Amlodipine Besylate (Amlodipine Besylate) 5 Mg Tablet, 5 MG PO DAILY, (Reported) Entered as Reported by: ELIZABETH LEWIS on 08/16/17904 Apixaban (Eliquis) 5 Mg Tablet, 5 MG PO BID, (Reported) Entered as Reported by: TREVER MORAN on 10/21/19 153 Aspirin (Aspirin) 81 Mg Tab.chew, 81 MG PO DAILY, (Reported) Entered as Reported by: ELIZABETH LEWIS on 08/16/17904 Atorvastatin Calcium (Atorvastatin Calcium) 20 Mg Tablet, 20 MG PO HS, (Reported) Entered as Reported by: ELIZABETH LEWIS on 08/16/17904 Dronedarone HCl (Multaq) 400 Mg Tablet, 400 MG PO BID, (Reported) Entered as Reported by: DEIRDRE GONZALEZ on 10/19/21 1124 Empagliflozin (Jardiance) 10 Mg Tablet, 10 MG PO DAILY, (Reported) Entered as Reported by: ZACK CONDE on 01/04/22 1048 Famotidine (Acid Gas Transfer Operator (FAMOTIDINE)) 10 Mg Tablet, 10 MG PO DAILY, (Reported) Entered as Reported by: ZACK CONDE on 01/04/22 1048 Furosemide (Furosemide) 20 Mg Tablet, 20 MG PO DAILY, (Reported) Entered as Reported by: DEIRDRE GONZALEZ on 10/19/21 1124 Levothyroxine Sodium (Levothyroxine Sodium) 88 Mcg Tablet, 88 MCG PO DAILY, (Reported) Entered as Reported by: ELIZABETH LEWIS on 12/22/15 0943 Lisinopril (Lisinopril) 5 Mg Tablet, 5 MG PO DAILY, (Reported) Entered as Reported by: DEIRDRE GONZALEZ on 10/19/21 112 Loratadine (Claritin) 10 Mg Capsule, 10 MG PO DAILY, (Reported) Entered as Reported by: ZACK CONDE on 01/04/22 1048 Metformin HCl (Metformin HCl ER) 500 Mg Tab.er.24, 1,000 MG PO BID, (Reported) Entered as Reported by: DEIRDRE GONZALEZ on 10/19/21 112 Multivitamin (Multivitamins) 1 Each Tablet, 1 EACH PO DAILY, (Reported) Entered as Reported by: ELIZABETH LEWIS on 08/16/17 0905 Mupirocin Calcium (Mupirocin) 2 % Cream..g., 1 APPLIC TP PRN, (Reported) Entered as Reported by: DEIRDRE GONZALEZ on 10/19/21 1124 Pantoprazole Sodium (Protonix) 40 Mg Tablet.dr, 40 MG PO DAILY Prescribed by: EBONY VALDEZ on 10/19/21 1455 Review of Systems Review of Systems Constitutional: see HPI Respiratory: cough; No short of breath Cardiovascular: no symptoms reported Gastrointestinal: no symptoms reported Genitourinary: no symptoms reported Musculoskeletal: no symptoms reported Skin: no symptoms reported All Other Systems Reviewed Negative Unless Noted: Yes Past Ylmqqwn-Qeikia-Uhnnai Hx Patient Social History Tobacco Use?: No Substance use?: No Alcohol Use?: No Immunizations Up To Date Tetanus Booster (TDap): More than 5yrs First/Initial COVID19 Vaccinat: AUGUST/2020 Second COVID19 Vaccination Cr: SEPTEMBER/2020 Third COVID19 Vaccination Date: MARCH/2021 Seasonal Allergies Seasonal Allergies: No Past Medical History Surgery/Hospitalization HX: DM 2, HTN, CKD 3, HOME O2 AT 3 LPM AFTER PT GOT HIS COVID BOOSTER SHOT, CAD Surgeries: Yes (TRAUMA TO RT WRIST, BILAT KNEE SCOPE, TRAUMA LT ELBOW, colon resection) Appendectomy, Bowel Surgery, Gallbladder, Orthopedic Respiratory: Yes (WEARS CONT O2 AT 3.5L/NC) Cardiac: Yes (HEART CATH WITH STENTS X2-2013) Coronary Artery Disease, High Cholesterol, Hypertension Neurological: No Reproductive Disorders: No Sexually Transmitted Disease: No HIV/AIDS: No Genitourinary: No Kidney Stones Gastrointestinal: Yes (COLON CA) Hemorrhoids, Polyps, Ulcer Musculoskeletal: Yes Degenerate Disk Disease, Arthritis, Chronic Back Pain Endocrine: Yes Hypothyroidsim, Diabetes, Non-Insulin dep HEENT: No Loss of Vision: Bilateral Hearing Impairment: Denies Cancer: Yes Colon Did You Recieve Any Treatments: Yes What Type of Treatment Did You: Chemotherapy, Surgical Intervention Psychosocial: No Anxiety Integumentary: No (MRSA RIGHT LEG 2002) Blood Disorders: No Adverse Reaction/Blood Tranf: No (N/A) Family Medical History No Pertinent Family Hx Physical Exam Vital Signs Vital Signs - First Documented 05/09/22 15:02 Temp 36.7 Pulse 60 Resp 20 B/P (MAP) 121/45 (70) Pulse Ox 99 O2 Delivery Nasal Cannula O2 Flow Rate 3.00 Capillary Refill : Less Than 3 Seconds Height, Weight, BMI Height: 5'8.00" Weight: 279lbs. 0.0oz. 126.180031hk; 36.00 BMI Method:Stated General Appearance: No Apparent Distress, WD/WN Eyes: Bilateral Eye Conjunctivae Pale Neck: Normal Inspection Respiratory: Lungs Clear, Normal Breath Sounds, No Accessory Muscle Use, No Respiratory Distress Cardiovascular: Regular Rate, Rhythm Gastrointestinal: Non Tender, Soft Extremity: Normal Inspection, Other Neurologic/Psychiatric: Alert, Oriented x3, No Motor/Sensory Deficits (Skin changes consistent with peripheral vascular disease), Normal Mood/Affect, maternal child nurse II-XII Norm as Tested Skin: Warm/Dry, Pallor Progress/Results/Core Measures Suspected Sepsis SIRS Temperature: Pulse: 60 Respiratory Rate: 20 Laboratory Tests 05/09/22 15:15: White Blood Count 6.6 Blood Pressure 121 /45 Mean: 70 Laboratory Tests 05/09/22 15:15: Platelet Count 188 Results/Orders Lab Results Laboratory Tests Test 05/09/22 15:15 Range/Units White Blood Count 6.6 4.3-11.0 10^3/uL Red Blood Count 2.46 L 4.30-5.52 10^6/uL Hemoglobin 6.9 *L 13.3-17.7 g/dL Hematocrit 22 L 40-54 % Mean Corpuscular Volume 91 80-99 fL Mean Corpuscular Hemoglobin 28 25-34 pg Mean Corpuscular Hemoglobin Concent 31 L 32-36 g/dL Red Cell Distribution Width 16.5 H 10.0-14.5 % Platelet Count 188 130-400 10^3/uL Mean Platelet Volume 9.2 9.0-12.2 fL Immature Granulocyte % (Auto) 1 % Neutrophils (%) (Auto) 65 42-75 % Lymphocytes (%) (Auto) 18 12-44 % Monocytes (%) (Auto) 10 0-12 % Eosinophils (%) (Auto) 7 0-10 % Basophils (%) (Auto) 0 0-10 % Neutrophils # (Auto) 4.3 1.8-7.8 10^3/uL Lymphocytes # (Auto) 1.2 1.0-4.0 10^3/uL Monocytes # (Auto) 0.7 0.0-1.0 10^3/uL Eosinophils # (Auto) 0.4 H 0.0-0.3 10^3/uL Basophils # (Auto) 0.0 0.0-0.1 10^3/uL Immature Granulocyte # (Auto) 0.0 0.0-0.1 10^3/uL My Orders Orders - ADARSH PEÑA MD Ed Iv/Invasive Line Start (05/09/22 15:44) Cbc With Automated Diff (05/09/22 15:44) Type And Screen (05/09/22 16:15) Red Cells Leukocytes Reduced (05/09/22 16:28) Ns Iv 500 Ml (Sodium Chloride 0.9%) (05/09/22 17:07) General/Regular (05/09/22 Dinner) Ns Iv 500 Ml (Sodium Chloride 0.9%) (05/09/22 17:49) Vital Signs/I&O 05/09/22 05/09/22 05/09/22 15:02 17:15 17:30 Temp 36.7 36.3 36.4 Pulse 60 55 52 Resp 20 16 16 B/P (MAP) 121/45 (70) 136/59 147/66 Pulse Ox 99 100 100 O2 Delivery Nasal Cannula O2 Flow Rate 3.00 2.00 2.00 Capillary Refill : Less Than 3 Seconds Blood Pressure Mean: 70 Departure Impression Primary Impression: Anemia Qualified Codes: D64.9 - Anemia, unspecified Disposition: HOME, SELF-CARE Condition: Stable Departure-Patient Inst. Decision time for Depature: 16:17 Referrals: GEREMIAS TREVINO MD (PCP/Family) Primary Care Physician Patient Instructions: Anemia, Possibly From Low Iron, Adult ED Add. Discharge Instructions: Continue your daily medications as previously prescribed. You have been given one unit of blood here in the ER for a hemoglobin of 6.9 Please follow-up with your kidney specialist and your primary care doctor as scheduled. Return to the emergency department for any new, concerning or emergent complaints. Copy Copies To 1: GEREMIAS TREVINO MD, KATHRYN M MD May 09, 2022 15:49
[2022-05-09 15:50] LABS: BASOPHILS % (AUTO) 0 % (0-10); EOSINOPHILS # (AUTO) 0.4 10^3/uL (0.0-0.3); EOSINOPHILS % (AUTO) 7 % (0-10); HEMATOCRIT 22 % (40-54); LYMPHOCYTES # (AUTO) 1.2 10^3/uL (1.0-4.0); LYMPHOCYTES % (AUTO) 18 % (12-44); MEAN CORPUSCULAR HEMOGLOBIN 28 pg (25-34); MEAN CORPUSCULAR HGB CONC 31 g/dL (32-36); MEAN CORPUSCULAR VOLUME 91 fL (80-99); MEAN PLATELET VOLUME 9.2 fL (9.0-12.2); MONOCYTES # (AUTO) 0.7 10^3/uL (0.0-1.0); MONOCYTES % (AUTO) 10 % (0-12); NEUTROPHILS # (AUTO) 4.3 10^3/uL (1.8-7.8); NEUTROPHILS % (AUTO) 65 % (42-75); PLATELET COUNT 188 10^3/uL (130-400); WHITE BLOOD COUNT 6.6 10^3/uL (4.3-11.0)
[2022-05-09 15:54] LABS: HEMOGLOBIN 6.9 g/dL (13.3-17.7)
[2022-05-09] MEDS ORDERED: NS IV 500 ML 500 ML ONE (17:07)
[2022-05-09 17:15] VITALS: BP 136/59
[2022-05-09 17:30] VITALS: BP 147/66
[2022-05-09] MEDS ORDERED: NS IV 500 ML 500 ML IV STA (17:49)
[2022-05-09 19:31] VITALS: BP 157/67
== END 2022-05-09 19:31 | disposition home or self-care (01) ==
LOC: EDUNIT# 14:52 → ER 14:54
DX: D64.9 Anemia, unspecified (principal); I12.9 Hypertensive chronic kidney disease with stage 1 through stage 4 chronic kidney disease, or unspecified chronic kidney disease; E11.22 Type 2 diabetes mellitus with diabetic chronic kidney disease; N18.30 Chronic kidney disease, stage 3 unspecified; Z28.310 Unvaccinated for COVID-19
CPT/HCPCS: 85025; 86850; 86900; 86901; 86920; 99281; P9016; 36415

== ENCOUNTER 2022-05-23 09:17 | Emergency (ER) | payer OTHER, MEDICAID ==
[~2022-05-23] VITALS: Ht 173 cm; Wt 113.4 kg
--- NOTE | 2022-05-23 11:10 | ED Cough/URI ---
General Chief Complaint: Cough/Cold/Flu Symptoms Stated Complaint: COUGH | SNEEZING | RUNNY NOSE Nursing Triage Note: C/OCOLD COUGH AND SNEEZING WITH NO FEVER FOR LAST FEW DAYS Source: patient Exam Limitations: no limitations History of Present Illness Date Seen by Provider: May 23, 2022 Time Seen by Provider: 09:43 Initial Comments Here with report of cough and congestion over the last few days. States that he is actually had intermittent infection or problems over the last 2 weeks. He did take antibiotics and steroids and has been off that for a few days. presents with the same symptoms that she has had for a couple of days. He is vaccinated for COVID and influenza. Does have history of chronic kidney disease and is on oxygen. Denies fever chills currently. Timing/Duration: changing over time Severity/Quality: mild, dry cough Modifying Factors: Worse With Coughing; Improves With Oxygen Associated Symptoms: cough, fever/chills, muscle aches, shortness of breath Allergies and Home Medications Allergies Coded Allergies: Sulfa (Sulfonamide Antibiotics) (Unverified Allergy, Unknown, N/V, 08/16/17) codeine (Unverified Allergy, Unknown, N/V ABD PAIN, 08/16/17) Patient Home Medication List Home Medication List Reviewed: Yes Amlodipine Besylate (Amlodipine Besylate) 5 Mg Tablet, 5 MG PO DAILY, (Reported) Entered as Reported by: ELIZABETH LEWIS on 08/16/17904 Apixaban (Eliquis) 5 Mg Tablet, 5 MG PO BID, (Reported) Entered as Reported by: TREVER MORAN on 10/21/19 1533 Aspirin (Aspirin) 81 Mg Tab.chew, 81 MG PO DAILY, (Reported) Entered as Reported by: ELIZABETH LEWIS on 08/16/17904 Atorvastatin Calcium (Atorvastatin Calcium) 20 Mg Tablet, 20 MG PO HS, (Reported) Entered as Reported by: ELIZABETH LEWIS on 08/16/17904 Dronedarone HCl (Multaq) 400 Mg Tablet, 400 MG PO BID, (Reported) Entered as Reported by: DEIRDRE GONZALEZ on 10/19/21 1124 Empagliflozin (Jardiance) 10 Mg Tablet, 10 MG PO DAILY, (Reported) Entered as Reported by: ZACK CONDE on 01/04/22 1048 Famotidine (Acid Spare Hand (FAMOTIDINE)) 10 Mg Tablet, 10 MG PO DAILY, (Reported) Entered as Reported by: ZACK CONDE on 01/04/22 1048 Furosemide (Furosemide) 20 Mg Tablet, 20 MG PO DAILY, (Reported) Entered as Reported by: DEIRDRE GONZALEZ on 10/19/21 1124 Levothyroxine Sodium (Levothyroxine Sodium) 88 Mcg Tablet, 88 MCG PO DAILY, (Reported) Entered as Reported by: ELIZABETH LEWIS on 12/22/15 0943 Lisinopril (Lisinopril) 5 Mg Tablet, 5 MG PO DAILY, (Reported) Entered as Reported by: DEIRDRE GONZALEZ on 10/19/21 112 Loratadine (Claritin) 10 Mg Capsule, 10 MG PO DAILY, (Reported) Entered as Reported by: ZACK CONDE on 01/04/22 1048 Metformin HCl (Metformin HCl ER) 500 Mg Tab.er.24, 1,000 MG PO BID, (Reported) Entered as Reported by: DEIRDRE GONZALEZ on 10/19/21 112 Multivitamin (Multivitamins) 1 Each Tablet, 1 EACH PO DAILY, (Reported) Entered as Reported by: ELIZABETH LEWIS on 08/16/17 0905 Mupirocin Calcium (Mupirocin) 2 % Cream..g., 1 APPLIC TP PRN, (Reported) Entered as Reported by: DEIRDRE GONZALEZ on 10/19/21 112 Pantoprazole Sodium (Protonix) 40 Mg Tablet.dr, 40 MG PO DAILY Prescribed by: EBONY VALDEZ on 10/19/21 1455 Review of Systems Review of Systems Constitutional: see HPI; No chills; fever EENTM: nose congestion; No throat pain Respiratory: cough; No short of breath Cardiovascular: no symptoms reported Gastrointestinal: No nausea, No vomiting Musculoskeletal: No back pain, No muscle pain Past Ztdlqvm-Ssyrxe-Hrjtzm Hx Patient Social History Tobacco Use?: No Use of E-Cig and/or Vaping dev: No Substance use?: No Alcohol Use?: No Pt feels they are or have been: No Immunizations Up To Date Tetanus Booster (TDap): More than 5yrs Influenza Vaccine Up-to-Date: Yes; Up-to-Date First/Initial COVID19 Vaccinat: AUGUST/2020 Second COVID19 Vaccination Cr: SEPTEMBER/2020 Third COVID19 Vaccination Date: MARCH/2021 Seasonal Allergies Seasonal Allergies: No Past Medical History Surgery/Hospitalization HX: DM 2, HTN, CKD 3, HOME O2 AT 3 LPM AFTER PT GOT HIS COVID BOOSTER SHOT, CAD Surgeries: Yes (TRAUMA TO RT WRIST, BILAT KNEE SCOPE, TRAUMA LT ELBOW, colon resection) Appendectomy, Bowel Surgery, Gallbladder, Orthopedic Respiratory: Yes (WEARS CONT O2 AT 3.5L/NC) Cardiac: Yes (HEART CATH WITH STENTS X2-2013) Coronary Artery Disease, High Cholesterol, Hypertension Neurological: No Reproductive Disorders: No Sexually Transmitted Disease: No HIV/AIDS: No Genitourinary: No Kidney Stones Gastrointestinal: Yes (COLON CA) Hemorrhoids, Polyps, Ulcer Musculoskeletal: Yes Degenerate Disk Disease, Arthritis, Chronic Back Pain Endocrine: Yes Hypothyroidsim, Diabetes, Non-Insulin dep HEENT: No Loss of Vision: Bilateral Hearing Impairment: Denies Cancer: Yes Colon Did You Recieve Any Treatments: Yes What Type of Treatment Did You: Chemotherapy, Surgical Intervention Psychosocial: No Anxiety Integumentary: No (MRSA RIGHT LEG 2002) Blood Disorders: No Adverse Reaction/Blood Tranf: No (N/A) Family Medical History Reviewed Nursing Family Hx No Pertinent Family Hx Physical Exam Vital Signs - First Documented 05/23/22 09:23 Temp 36.3 Pulse 74 Resp 18 B/P (MAP) 146/53 (84) Pulse Ox 94 O2 Delivery Nasal Cannula O2 Flow Rate 3.00 Capillary Refill : Less Than 3 Seconds Height: 5'8.00" Weight: 279lbs. 0.0oz. 126.680021rf; 37.00 BMI Method:Stated General Appearance: WD/WN, no apparent distress HEENT: PERRL/EOMI, TMs normal, pharynx normal Neck: full range of motion, supple Respiratory: lungs clear, normal breath sounds, other (Coarse cough) Cardiovascular: regular rate, rhythm, no murmur Neurologic/Psychiatric: alert, oriented x 3 Skin: normal color, warm/dry Progress/Results/Core Measures Suspected Sepsis SIRS Temperature: Pulse: 74 Respiratory Rate: 18 Blood Pressure 146 /53 Mean: 84 Results/Orders Lab Results Laboratory Tests Test 05/23/22 09:24 Range/Units Influenza Type A (RT-PCR) Detected H Not Detecte Influenza Type B (RT-PCR) Not Detected Not Detecte SARS-CoV-2 RNA (RT-PCR) Not Detected Not Detecte My Orders Orders - ZOILA MALCOLM MD Influenza A And B By Pcr (05/23/22 09:43) Covid 19 Inhouse Test (05/23/22 09:43) Vital Signs/I&O 05/23/22 09:23 Temp 36.3 Pulse 74 Resp 18 B/P (MAP) 146/53 (84) Pulse Ox 94 O2 Delivery Nasal Cannula O2 Flow Rate 3.00 Capillary Refill : Less Than 3 Seconds Blood Pressure Mean: 84 Progress Note : Progress Note Seen and evaluated. Influenza and COVID testing ordered. Influenza is positive. Patient is outside of window for Tamiflu. He is just completed antibiotics and steroids. No indication for further at this point. Patient will continue with slfq-rro-zclphph therapy. This was discussed with the patien t and he agrees. Discharged home with return precautions. Patient verbalized understanding of instructions and agreement with plan. Departure Impression Primary Impression: Influenza A Disposition: 01 HOME, SELF-CARE Condition: Improved Departure-Patient Inst. Decision time for Depature: 11:34 Referrals: GEREMIAS TREVINO MD (PCP/Family) Primary Care Physician Patient Instructions: Flu, Adult (DC) Add. Discharge Instructions: All discharge instructions reviewed with patient and/or family. Voiced understanding. You may take Tylenol/acetaminophen 1000 mg every 6 hours as needed for fever or pain or you may use nsqc-jaw-ivivzsi cough and cold medicine but do not take both at the same time as they both have acetaminophen in them. You may use Afrin nasal spray or the generic, 12 hour relief, 2 sprays to each nostril twice daily for 3 days only and then stop. Do not use more than 3 days. Follow-up with your DrWanda in a few days for recheck. Drink plenty of fluids and get plenty of rest. Return for worse pain, fever, vomiting, weakness, breathing problems or other c oncerns as needed. ZOILA MALCOLM MD May 23, 2022 11:10
[2022-05-23 12:05] VITALS: BP 122/53
== END 2022-05-23 12:07 | disposition home or self-care (01) ==
LOC: EDUNIT# 09:17 → ER 09:19
DX: J10.1 Influenza due to other identified influenza virus with other respiratory manifestations (principal); Z20.822 Contact with and (suspected) exposure to COVID-19; Z99.81 Dependence on supplemental oxygen
CPT/HCPCS: 87636; 99283

== ENCOUNTER → 2022-10-23 | Outpatient (CLI) | payer OTHER, MEDICAID ==
[~2022-10-23] MED LIST changes: +LOSA-423 PO; -LOSA1TAB15 PO
[2022-10-23 09:39] LABS: HEMATOCRIT 24 % (40-54); HEMOGLOBIN 7.2 g/dL (13.3-17.7); MEAN CORPUSCULAR HEMOGLOBIN 27 pg (25-34); MEAN CORPUSCULAR HGB CONC 31 g/dL (32-36); MEAN CORPUSCULAR VOLUME 88 fL (80-99); MEAN PLATELET VOLUME 8.7 fL (9.0-12.2); PLATELET COUNT 208 10^3/uL (130-400); WHITE BLOOD COUNT 8.6 10^3/uL (4.3-11.0)
[2022-10-23 09:58] LABS: ALBUMIN 3.7 GM/DL (3.2-4.5); BILIRUBIN,TOTAL 0.7 MG/DL (0.1-1.0); CALCIUM 9.6 MG/DL (8.5-10.1); CREATININE SERUM 2.36 MG/DL (0.60-1.30); POTASSIUM 4.5 MMOL/L (3.6-5.0); TOTAL PROTEIN 8.5 GM/DL (6.4-8.2)
== END ==
LOC: LAB 09:24
PROVIDERS: ATTEND Physician Assistant
DX: I10 Essential (primary) hypertension (principal); I25.10 Atherosclerotic heart disease of native coronary artery without angina pectoris; I65.23 Occlusion and stenosis of bilateral carotid arteries; E78.2 Mixed hyperlipidemia; I48.20 Chronic atrial fibrillation, unspecified; I48.0 Paroxysmal atrial fibrillation; D64.9 Anemia, unspecified; I48.91 Unspecified atrial fibrillation
CPT/HCPCS: 36415; 80053; 80061; 84443; 85027

== ENCOUNTER → 2022-10-30 | Outpatient (CLI) | payer OTHER, MEDICAID ==
[~2022-10-30] MED LIST changes: +CATHETER FLUSH 10 ML SYR IVP PRN; +REGADENOSON 0.4 MG/5 ML SYR (LEXISCAN) IV ONE
[2022-10-30 09:11] VITALS: BP 152/74
--- NOTE | 2022-10-30 12:07 | Cardiology Stress Test Report ---
Stress Test Report Date of Procedure/Referring: Date of Procedure: October 30, 2022 PCP Ana Maria Currie MD Admitting Physician Admitting Physician: Attending Physician: Elisa Sawant Baseline Heart Rate: 67 Baseline Blood Pressure: Blood Pressure Systolic: 152 Blood Pressure Diastolic: 74 Baseline Vitals Vital Signs Date Time Temp Pulse Resp B/P (MAP) Pulse Ox O2 Delivery O2 Flow Rate FiO2 10/30/22 09:11 67 152/74 (100) Baseline EKG: Baseline EKG: NSR, RBBB Summary After explaining the procedure to the patient, he signed a consent and then brought to the stress nuclear laboratory. Patient received 0.4 mg Lexiscan for stress test, ECG, heart rate and blood pressure were monitored continuously. Resting and stress dose of radio tracer were injected, imaging was acquired and reviewed in short axis, horizontal long axis and vertical long axis views. TID: 0.91 SSS: 5 SDS: 3 EF: 51 Patient tolerated Lexiscan well Baseline sinus rhythm with right bundle branch block Reversible ischemia involving the mid to apical inferior wall and inferolateral wall Normal left ventricular size, ejection fraction 51% MICHELLE MCHUGH MD October 30, 2022 12:06
== END ==
LOC: CARD 08:00
PROVIDERS: ATTEND Physician Assistant
DX: I45.10 Unspecified right bundle-branch block (principal); I25.89 Other forms of chronic ischemic heart disease
CPT/HCPCS: 78452; 93017; A9502

== ENCOUNTER 2022-11-08 14:00 | Day surgery (SDC) | payer OTHER, MEDICAID ==
[2022-11-08] VITALS (8 sets, daily range): BP systolic 138–176; BP diastolic 57–73
[~2022-11-08] VITALS: Ht 172.7 cm; Wt 120.7 kg
--- NOTE | 2022-11-08 10:41 | Diagnostic Imaging Report ---
INDICATION: Chest pain Portable chest 10:36 AM Heart size and pulmonary vascularity are normal. Lungs are clear. There are no effusions or pneumothoraces. IMPRESSION: No acute abnormalities in the chest Dictated by: Dictated on workstation # [id number]
[2022-11-08 10:49] LABS: HEMATOCRIT 25 % (40-54); HEMOGLOBIN 7.6 g/dL (13.3-17.7); MEAN CORPUSCULAR HEMOGLOBIN 26 pg (25-34); MEAN CORPUSCULAR HGB CONC 30 g/dL (32-36); MEAN CORPUSCULAR VOLUME 88 fL (80-99); MEAN PLATELET VOLUME 8.5 fL (9.0-12.2); PLATELET COUNT 196 10^3/uL (130-400); WHITE BLOOD COUNT 9.5 10^3/uL (4.3-11.0)
[2022-11-08 11:00] LABS: INR 1.3 (0.8-1.4); PROTHROMBIN TIME PATIENT 16.2 SEC (12.2-14.7)
[2022-11-08 11:08] LABS: ALBUMIN 3.7 GM/DL (3.2-4.5); BILIRUBIN,TOTAL 0.7 MG/DL (0.1-1.0); CALCIUM 9.7 MG/DL (8.5-10.1); CREATININE SERUM 1.93 MG/DL (0.60-1.30); POTASSIUM 4.9 MMOL/L (3.6-5.0); TOTAL PROTEIN 8.3 GM/DL (6.4-8.2)
[~2022-11-08 14:00] MED LIST changes: +ACET325T38 PO; +AMLO2.5T4 PO; +ASPI-1238 PO; -CATHETER FLUSH 10 ML SYR IVP PRN; +DAPA10TA PO; +HEParin (CATH LAB) 2,000 ML IV ONE; +HEParin 1000 UNIT/ML (10ML VIAL) FOR BOLUS ONE; +LIDOCAINE 1% INJ 20 ML VIAL ONE; +LORA10TA76 PO; +MIDAZOLAM 5 MG/5 ML (VERSED) VIAL ONE; +MULT-1136 PO; +NITRO DRIP 25000 MCG/D5W 250 ML IV ONE; +NS IV 1000 ML 1,000 ML IV SCH; -REGADENOSON 0.4 MG/5 ML SYR (LEXISCAN) IV ONE; +SODIUM BICARBONATE 8.4% SYR 150 MEQ in D5W 1000 ML IV SOLUTION 1,000 ML IV SCH; +VERAPAMIL 5 MG/2 ML (CALAN) VIAL IV ONE; +fentaNYL INJ 100 MCG/2 ML AMP ONE
[2022-11-08] MEDS ORDERED: VERAPAMIL 5 MG/2 ML (CALAN) VIAL IV ONE (14:50)
[2022-11-08] MEDS ORDERED: MIDAZOLAM 5 MG/5 ML (VERSED) VIAL ONE (14:50)
--- NOTE | 2022-11-08 15:21 | Discharge Inst-Post CATH ---
Discharge Inst-CATH/EP Problems Reviewed?: Yes Post Cardiac Cath/EP D/C Inst Follow Up/Plan Appointment with Dr. Mccloud's office in 2 to 4 weeks <b>CARDIAC CATH/EP PROCEDURE DISCHARGE INSTRUCTIONS</b> ACTIVITY * Go Home directly and rest. * Limit activity of the leg (or wrist if it was used) for 7 days including aer obics, swimming, jogging, bicycling, etc. * Restrict stair-climbing for 7 days if possible, if not, climb up with your non-cath leg, then bring together on the same step. * Avoid lifting, pushing, pulling or excessive movement of the affected extremi ty for 7 days. * Customary sexual activity may be resumed after 2 days-use caution not to use a position that strains or causes pain to the affected extremity. * No driving for 24 hours. * NO SMOKING. * Avoid straining for bowel movements for 7 days. * Gentle walking on level ground is allowed. * Returning to work will depend on the type of procedure and the results. Your doctor will discuss this with you. CALL YOUR DOCTOR FOR ANY OF THE FOLLOWING: *If bleeding from the puncture site occurs- Apply gentle pressure to site with clean cloth and call your doctor or EMS. * If a knot or lump forms under the skin, increases in size, or causes pain. * If bruising appears to be worsening or moving further down your leg instead of disappearing. * Temperature above 101 F. CARE OF YOUR GROIN INCISION; * Bruising or purple discoloration of the skin near the puncture site is common. * You may shower only, no bathtub bathing for 5 days. Be careful to avoid slipping as your leg may feel stiff. * If a closure device was used on your femoral artery, please see the attached guide regarding care of the device and your leg. * Leave dressing on FOR 24 hours. CARE OF YOUR WRIST INCISION; * Bruising or purple discoloration of the skin near the puncture site is common. * You may shower. * DO NOT submerge wrist. * Leave dressing on FOR 24 hours. MICHELLE MCCLOUD MD November 08, 2022 15:21
--- NOTE | 2022-11-08 15:24 | Cardiac Cath Report ---
Cardiac Cath Report Physician (s)/Glaciologist (s) Physician MICHELLE MCHUGH MD Pre-Procedure Diagnosis Pre-Procedure Diagnosis: Coronary artery disease Post-Procedure Note Procedure Start Date: November 08, 2022 Name of Procedure: Left heart catheterization Findings/Procedure Note PROCEDURE NOTE: 72-year-old gentleman with history of coronary artery disease, hypertension, hyperlipidemia, had an abnormal stress test, scheduled for cardiac catheterization possible PTCA. After explaining the procedure to the patient, all pros and cons were explained, all questions were answered. The patient signed the consent and then he was placed in the cardiac catheterization laboratory. Groin was prepped in SL fashion local anesthesia was used. Sheath placed in the right radial artery, [place] catheter was advanced to the left ventricular cavity, pressure was measured, pullback LV to aorta was done, engage the right and left coronary system, angiogram was done. At the end of the procedure the sheath was removed. Vascular band was used FINDINGS: Hemodynamics LV 136/14, end-diastolic pressure of 14 Aorta 132/62 mean of 91 ANATOMY: Left Main is free of obstructive disease Left Anterior Descending has a patent stent in the mid LAD with mild irregularity no obstructive disease Left Circumflex is moderate in size with no obstructive disease Right Coronary Artery is large dominant artery with 40 to 50% stenosis in the mid right coronary artery nonobstructive disease LV Gram was not done, pressure was measured CONCLUSION: Patent stent in the mid LAD with mild disease distally nonobstructive disease Dominant right coronary artery with 40 to 50% mid right coronary artery stenosis nonobstructive disease Normal left ventricular end-diastolic pressure DISCUSSION AND RECOMMENDATION: Continue to maximize medical therapy Anesthesia Type: Conscious Sedation Estimated blood loss (mL): 10 ml Contrast Amount: 25 ml Post-Procedure Diagnosis Post-operative diagnosis: Coronary artery disease Hypertension Hyperlipidemia Chest pain MICHELLE MCHUGH MD November 08, 2022 15:24
[2022-11-08] MEDS ORDERED: NS IV 1000 ML 1,000 ML IV SCH (15:30)
[2022-11-09] MEDS ORDERED: FLUTICASONE NASAL SPRAY (FLONASE) 16 GM BTL NS SCH (09:00)
== END 2022-11-08 18:43 | disposition home or self-care (01) ==
LOC: CATH 14:00 → CSD 15:36 → CATH 18:43
PROVIDERS: ATTEND Internal Medicine Cardiovascular Disease
DX: I25.10 Atherosclerotic heart disease of native coronary artery without angina pectoris (principal); E78.2 Mixed hyperlipidemia; E66.9 Obesity, unspecified; I48.0 Paroxysmal atrial fibrillation; I50.9 Heart failure, unspecified; N18.9 Chronic kidney disease, unspecified; I13.0 Hypertensive heart and chronic kidney disease with heart failure and stage 1 through stage 4 chronic kidney disease, or unspecified chronic kidney disease; E11.22 Type 2 diabetes mellitus with diabetic chronic kidney disease; G89.29 Other chronic pain; M25.569 Pain in unspecified knee; K92.2 Gastrointestinal hemorrhage, unspecified; I48.20 Chronic atrial fibrillation, unspecified; I65.23 Occlusion and stenosis of bilateral carotid arteries; E03.9 Hypothyroidism, unspecified; J44.9 Chronic obstructive pulmonary disease, unspecified; R53.1 Weakness; D64.9 Anemia, unspecified; Z79.01 Long term (current) use of anticoagulants; Z68.41 Body mass index [BMI] 40.0-44.9, adult; Z79.899 Other long term (current) drug therapy; Z85.038 Personal history of other malignant neoplasm of large intestine; Z79.890 Hormone replacement therapy; Z79.84 Long term (current) use of oral hypoglycemic drugs
CPT/HCPCS: 71045; 80053; 85027; 85610; 85730; 87081; 93005; 93458; C1894; 36415

== ENCOUNTER → 2023-01-30 | Outpatient (CLI) | payer MEDICARE, MEDICAID ==
[~2023-01-30] MED LIST changes: -HEParin (CATH LAB) 2,000 ML IV ONE; -HEParin 1000 UNIT/ML (10ML VIAL) FOR BOLUS ONE; -LIDOCAINE 1% INJ 20 ML VIAL ONE; -MIDAZOLAM 5 MG/5 ML (VERSED) VIAL ONE; -NITRO DRIP 25000 MCG/D5W 250 ML IV ONE; -NS IV 1000 ML 1,000 ML IV SCH; -SODIUM BICARBONATE 8.4% SYR 150 MEQ in D5W 1000 ML IV SOLUTION 1,000 ML IV SCH; -VERAPAMIL 5 MG/2 ML (CALAN) VIAL IV ONE; -fentaNYL INJ 100 MCG/2 ML AMP ONE
--- NOTE | 2023-01-30 17:57 | Diagnostic Imaging Report ---
PROCEDURE: US Renal Bilateral. TECHNIQUE: Multiple real-time grayscale images were obtained over the kidneys in various projections bilaterally. INDICATION: Renal failure. COMPARISON: 04/25/2022. FINDINGS: Performing scrap shear operator reports technically challenging and limited exam due to large patient body habitus and inability to suspend respirations. Both kidneys are normal in size and echogenicity. The right kidney measures 11.3 cm in length and the left is 12 cm. The cortical thickness and the cortical medullary differentiation is well maintained. There is no evidence of calculi, focal mass or hydronephrosis. Limited views of the pelvis demonstrate minimally distended urinary bladder. There is no ascites. IMPRESSION: Normal renal sonogram with limitations as above. Dictated by: Dictated on workstation # [id number]
== END ==
LOC: RAD 09:00
PROVIDERS: ATTEND Internal Medicine Nephrology
DX: N18.4 Chronic kidney disease, stage 4 (severe) (principal)
CPT/HCPCS: 76770

== ENCOUNTER → 2023-03-19 | Outpatient (CLI) | payer MEDICARE, MEDICAID | LOC: CANPRECLI → CARD 09:06 | PROVIDERS: ATTEND Internal Medicine Cardiovascular Disease | DX: I11.9 Hypertensive heart disease without heart failure (principal); I34.0 Nonrheumatic mitral (valve) insufficiency; I36.1 Nonrheumatic tricuspid (valve) insufficiency | CPT/HCPCS: 93306 ==

== ENCOUNTER 2023-05-20 10:30 | Emergency (ER) | payer MEDICARE, MEDICAID ==
[~2023-05-20] VITALS: Ht 172.7 cm; Wt 127.0 kg
--- NOTE | 2023-05-20 10:51 | ED Hip Pain/Injury ---
General Chief Complaint: Hip/Pelvic Problems Stated Complaint: RIGHT HIP PAIN Nursing Triage Note: PT TO [facility] BY [facility] FROM HOME WITH COMPLAINT OF RIGHT HIP PAIN. STATES 3 WEEKS AGO FELL OFF CHAIR AND LANDED ON RIGHT HIP. STATES PAIN HAS WORSENED OVER THE LAST 3 WEEKS. GIVEN 50MCG FENTANYL BY EMS Source: patient, EMS Exam Limitations: no limitations History of Present Illness Date Seen by Provider: May 20, 2023 Time Seen by Provider: 10:38 Allergies and Home Medications Allergies Coded Allergies: Sulfa (Sulfonamide Antibiotics) (Unverified Allergy, Unknown, N/V, 08/16/17) codeine (Unverified Allergy, Unknown, N/V ABD PAIN, 08/16/17) Patient Home Medication List Acetaminophen (Tylenol) 325 Mg Tablet, 650 MG PO Q6H PRN for PAIN-MILD (1-4), (Reported) Entered as Reported by: KATELYN SIMS on 11/08/221111 Amlodipine Besylate (Amlodipine Besylate) 2.5 Mg Tablet, 2.5 MG PO DAILY, (Reported) Entered as Reported by: KATELYN SIMS on 11/08/221111 Apixaban (Eliquis) 5 Mg Tablet, 5 MG PO BID, (Reported) Entered as Reported by: KATELYN SIMS on 11/08/221111 Aspirin (Aspirin EC) 81 Mg Tablet.dr, 81 MG PO DAILY, (Reported) Entered as Reported by: KATELYN SIMS on 11/08/221111 Atorvastatin Calcium (Atorvastatin Calcium) 20 Mg Tablet, 20 MG PO HS, (Reported) Entered as Reported by: ELIZABETH LEWIS on 08/16/17 0905 Dapagliflozin Propanediol (Farxiga) 10 Mg Tablet, 10 MG PO DAILY, (Reported) Entered as Reported by: KATELYN SIMS on 11/08/22 111 Dronedarone HCl (Multaq) 400 Mg Tablet, 400 MG PO BID, (Reported) Entered as Reported by: KATELYN SIMS on 11/08/221111 Furosemide (Furosemide) 40 Mg Tablet, 40 MG PO Q48H, (Reported) Entered as Reported by: KATELYN SIMS on 11/08/22 111 Gabapentin (Neurontin) 300 Mg Capsule, 300 MG PO TID PRN for PAIN-BREAKTHROUGH Prescribed by: TALITA SUNG on 05/20/23 1500 Levothyroxine Sodium (Levothyroxine Sodium) 88 Mcg Tablet, 88 MCG PO DAILY, (Reported) Entered as Reported by: ELIZABETH LEWIS on 12/22/15 0943 Loratadine (Claritin) 10 Mg Tablet, 10 MG PO DAILY, (Reported) Entered as Reported by: KATELYN SIMS on 11/08/22 1112 Multivitamin (Multivitamin) 1 Each Tablet, 1 EACH PO DAILY, (Reported) Entered as Reported by: KATELYN SIMS on 11/08/22 1112 Past Kfuxuoj-Gujysl-Rsbghz Hx Patient Social History Tobacco Use?: No Use of E-Cig and/or Vaping dev: No Substance use?: No Alcohol Use?: No Pt feels they are or have been: No Immunizations Up To Date Tetanus Booster (TDap): More than 5yrs First/Initial COVID19 Vaccinat: AUGUST/2020 Second COVID19 Vaccination Cr: SEPTEMBER/2020 Third COVID19 Vaccination Date: MARCH/2021 Seasonal Allergies Seasonal Allergies: No Past Medical History Surgery/Hospitalization HX: DM 2, HTN, CKD 3, HOME O2 AT 3 LPM AFTER PT GOT HIS COVID BOOSTER SHOT, CAD stents, afib Surgeries: Yes (TRAUMA TO RT WRIST, BILAT KNEE SCOPE, TRAUMA LT ELBOW, colon resection) Appendectomy, Bowel Surgery, Gallbladder, Orthopedic Respiratory: Yes (WEARS CONT O2 AT 3.5L/NC) Cardiac: Yes (HEART CATH WITH STENTS X2-2013) Coronary Artery Disease, High Cholesterol, Hypertension Neurological: No Reproductive Disorders: No Sexually Transmitted Disease: No HIV/AIDS: No Genitourinary: No Kidney Stones Gastrointestinal: Yes (COLON CA) Hemorrhoids, Polyps, Ulcer Musculoskeletal: Yes Degenerate Disk Disease, Arthritis, Chronic Back Pain Endocrine: Yes Hypothyroidsim, Diabetes, Non-Insulin dep HEENT: No Loss of Vision: Bilateral Hearing Impairment: Denies Cancer: Yes Colon Did You Recieve Any Treatments: Yes What Type of Treatment Did You: Chemotherapy, Surgical Intervention Psychosocial: No Anxiety Integumentary: No (MRSA RIGHT LEG 2002) Blood Disorders: No Adverse Reaction/Blood Tranf: No (N/A) Family Medical History No Pertinent Family Hx Physical Exam Vital Signs Vital Signs - First Documented 05/20/23 10:33 Temp 35.9 Pulse 96 Resp 17 B/P (MAP) 188/79 (115) Pulse Ox 92 O2 Delivery Nasal Cannula O2 Flow Rate 4.00 Capillary Refill : Less Than 3 Seconds Height, Weight, BMI Height: 5'8.00" Weight: 279lbs. 0.0oz. 126.724477qr; 42.00 BMI Method:Stated Progress/Results/Core Measures Results/Orders Lab Results Laboratory Tests Test 05/20/23 10:55 Range/Units White Blood Count 8.7 4.3-11.0 10^3/uL Red Blood Count 2.31 L 4.30-5.52 10^6/uL Hemoglobin 6.5 *L 13.3-17.7 g/dL Hematocrit 22 L 40-54 % Mean Corpuscular Volume 97 80-99 fL Mean Corpuscular Hemoglobin 28 25-34 pg Mean Corpuscular Hemoglobin Concent 29 L 32-36 g/dL Red Cell Distribution Width 18.5 H 10.0-14.5 % Platelet Count 170 130-400 10^3/uL Mean Platelet Volume 10.1 9.0-12.2 fL Immature Granulocyte % (Auto) 1 % Neutrophils (%) (Auto) 81 H 42-75 % Lymphocytes (%) (Auto) 5 L 12-44 % Monocytes (%) (Auto) 8 0-12 % Eosinophils (%) (Auto) 5 0-10 % Basophils (%) (Auto) 1 0-10 % Neutrophils # (Auto) 7.0 1.8-7.8 10^3/uL Lymphocytes # (Auto) 0.5 L 1.0-4.0 10^3/uL Monocytes # (Auto) 0.7 0.0-1.0 10^3/uL Eosinophils # (Auto) 0.5 H 0.0-0.3 10^3/uL Basophils # (Auto) 0.0 0.0-0.1 10^3/uL Immature Granulocyte # (Auto) 0.0 0.0-0.1 10^3/uL Neutrophils % (Manual) 86 % Lymphocytes % (Manual) 4 % Monocytes % (Manual) 7 % Eosinophils % (Manual) 3 % Basophils % (Manual) 0 % Band Neutrophils 0 % Polychromasia SLIGHT Hypochromasia SLIGHT Anisocytosis MARKED Elliptocytes MODERATE Sodium Level 142 135-145 MMOL/L Potassium Level 4.5 3.6-5.0 MMOL/L Chloride Level 111 H 98-107 MMOL/L Carbon Dioxide Level 19 L 21-32 MMOL/L Anion Gap 12 5-14 MMOL/L Blood Urea Nitrogen 29 H 7-18 MG/DL Creatinine 2.39 H 0.60-1.30 MG/DL Estimat Glomerular Filtration Rate 28 BUN/Creatinine Ratio 12 Glucose Level 111 H 70-105 MG/DL Calcium Level 9.1 8.5-10.1 MG/DL B-Type Natriuretic Peptide 818.2 H <100.0 PG/ML My Orders Orders - TALITA ADAMES MD Morphine Injection (Morphine Injection (05/20/23 11:00) Pelvis With Right Hip 2-3views (05/20/23 10:48) Chest 1 View, Ap/Pa Only (05/20/23 10:48) Basic Metabolic Panel (05/20/23 10:48) Bnp Jerardo (05/20/23 10:48) Cbc And Automated Diff (05/20/23 10:48) Manual Differential (05/20/23 10:55) Red Cells Leukocytes Reduced (05/20/23 11:46) Type And Screen (05/20/23 11:46) Ct Pelvis Wo (05/20/23 11:49) Ct Lumbar Spine Wo (05/20/23 11:49) Gabapentin Capsule (Gabapentin Capsule) (05/20/23 13:45) Furosemide Tablet (Furosemide Tablet) (05/20/23 13:45) Potassium Chloride (Tablet) (Potassium C (05/20/23 13:45) Dronedarone Tablet (Dronedarone Tablet) (05/20/23 13:31) Apixaban Tablet (Apixaban Tablet) (05/20/23 13:45) Morphine Injection (Morphine Injection (05/20/23 14:30) Ns (Ivpb) 250 Ml (Sodium Chloride 0.9% 2 (05/20/23 15:11) Ondansetron Injection (Ondansetron Inj (05/20/23 16:00) Medications Given in ED Current Medications Medications Dose Ordered Sig/Lukas Route Start Time Stop Time Status Last Admin Dose Admin Apixaban 5 mg ONCE ONCE PO 05/20/23 13:45 05/20/23 13:46 DC 05/20/23 14:11 5 MG Furosemide 40 mg ONCE ONCE PO 05/20/23 13:45 05/20/23 13:46 DC 05/20/23 14:11 40 MG Gabapentin 300 mg ONCE ONCE PO 05/20/23 13:45 05/20/23 13:46 DC 05/20/23 14:11 300 MG Morphine Sulfate 4 mg ONCE ONCE IVP 05/20/23 11:00 05/20/23 11:01 DC 05/20/23 11:26 4 MG Morphine Sulfate 4 mg ONCE ONCE IVP 05/20/23 14:30 05/20/23 14:31 DC 05/20/23 14:59 4 MG Potassium Chloride 10 meq ONCE ONCE PO 05/20/23 13:45 05/20/23 13:46 DC 05/20/23 14:11 10 MEQ Sodium Chloride 250 ml @ ud STK-MED ONCE .ROUTE 05/20/23 15:11 05/20/23 15:15 DC 05/20/23 15:23 0 MLS/HR Vital Signs/I&O 05/20/23 05/20/23 05/20/23 10:33 15:15 15:22 Temp 35.9 36.0 35.7 Pulse 96 77 76 Resp 17 18 22 B/P (MAP) 188/79 (115) 170/76 148/71 Pulse Ox 92 96 94 O2 Delivery Nasal Cannula Nasal Cannula Nasal Cannula O2 Flow Rate 4.00 5.00 36.00 Blood Pressure Mean: 115 Departure Impression Primary Impression: Severe anemia Additional Impressions: Right hip pain Lumbar radiculopathy Spinal stenosis Qualified Codes: M48.062 - Spinal stenosis, lumbar region with neurogenic claudication CHF (congestive heart failure) Qualified Codes: I50.9 - Heart failure, unspecified Disposition: 01 HOME, SELF-CARE Condition: Improved Departure-Patient Inst. Decision time for Depature: 16:26 Referrals: GEREMIAS TREVINO MD (PCP/Family) Primary Care Physician Patient Instructions: Radiculopathy, Spinal stenosis Add. Discharge Instructions: Follow-up with your primary care provider as soon as possible. Continue workup to investigate your recurrent severe anemia. You should also follow-up with your educational audiologist in the near future regarding your heart failure. You appear to be retaining some fluid add may be benefit from adjustment in your diuretic dosing. You may try gabapentin (Neurontin) as prescribed for pain in your right hip and back. CT and x-ray imaging of your hip and pelvis revealed no injuries. However, you do have narrowing of the spinal canal and the nerve roots exiting the lower spine. These abnormalities could be causing nerve compression resulting in your hip and back pain. Gabapentin is a medication that targets nerve pain and may be very helpful to you. Gabapentin may cause drowsiness, so use with caution. Use hydrocodone for pain not controlled by the gabapentin. Hydrocodone may also cause drowsiness, so use with caution. Hydrocodone may also cause constipation, so you may wish to use a stool softener such as Colace while on hydrocodone. Return to care if you have worsening symptoms despite following these instructions. All discharge instructions reviewed with patient and/or family. Voiced understanding. Scripts Hydrocodone/Acetaminophen (Hydrocodone-Acetamin 5-325 mg) 5 Mg-325 Mg Tablet 1 TAB PO Q4H PRN for PAIN BREAKTROUGH, #10 TAB Prov: TALITA ADAMES MD 05/20/23 Gabapentin (Neurontin) 300 Mg Capsule 300 MG PO TID PRN for PAIN-BREAKTHROUGH, #20 CAP Prov: TALITA ADAMES MD 05/20/23 TALITA ADAMES MD May 20, 2023 10:51
[2023-05-20] MEDS ORDERED: morphine INJ 4 MG/ML 1 ML (VIAL/SYRINGE) IVP ONE ×2 (11:00→14:30)
[2023-05-20 11:02] LABS: BASOPHILS % (AUTO) 1 % (0-10); EOSINOPHILS # (AUTO) 0.5 10^3/uL (0.0-0.3); EOSINOPHILS % (AUTO) 5 % (0-10); HEMATOCRIT 22 % (40-54); LYMPHOCYTES # (AUTO) 0.5 10^3/uL (1.0-4.0); LYMPHOCYTES % (AUTO) 5 % (12-44); MEAN CORPUSCULAR HEMOGLOBIN 28 pg (25-34); MEAN CORPUSCULAR HGB CONC 29 g/dL (32-36); MEAN CORPUSCULAR VOLUME 97 fL (80-99); MEAN PLATELET VOLUME 10.1 fL (9.0-12.2); MONOCYTES # (AUTO) 0.7 10^3/uL (0.0-1.0); MONOCYTES % (AUTO) 8 % (0-12); NEUTROPHILS % (AUTO) 81 % (42-75); PLATELET COUNT 170 10^3/uL (130-400); WHITE BLOOD COUNT 8.7 10^3/uL (4.3-11.0)
[2023-05-20 11:15] LABS: HEMOGLOBIN 6.5 g/dL (13.3-17.7); POTASSIUM 4.5 MMOL/L (3.6-5.0)
[2023-05-20 11:16] LABS: CALCIUM 9.1 MG/DL (8.5-10.1)
[2023-05-20 11:20] LABS: CREATININE SERUM 2.39 MG/DL (0.60-1.30)
[2023-05-20 11:26] LABS: ANISOCYTOSIS MARKED; BAND NEUTROPHILS 0 %; BASOPHILS % (MANUAL) 0 %; ELLIPT/OVALOCYTES MODERATE; EOSINOPHILS % (MANUAL) 3 %; HYPOCHROMASIA SLIGHT; LYMPHOCYTES % (MANUAL) 4 %; MONOCYTES % (MANUAL) 7 %; NEUTROPHILS % (MANUAL) 86 %; POLYCHROMASIA SLIGHT
--- NOTE | 2023-05-20 11:27 | Diagnostic Imaging Report ---
Indication: Fall 3 weeks ago, continued pain. Findings: AP pelvis and two-view right hip performed. No fracture or joint separation. No articular collapse or bony avulsion. There are arthritic changes to the bilateral hips and visible lumbar spine as well as atherosclerotic vascular calcifications. Impression: Chronic findings as described. No fracture or acute injury apparent. Dictated by: Dictated on workstation # [id number]
--- NOTE | 2023-05-20 11:28 | Diagnostic Imaging Report ---
EXAMINATION: Chest 1 view HISTORY: Chest injury COMPARISON: 03/04/2023 FINDINGS: Heart is enlarged. There is mild edema. There is a small left effusion. No pneumothorax. IMPRESSION: 1. Small left effusion and mild edema. Dictated by: Dictated on workstation # [id number]
--- NOTE | 2023-05-20 12:23 | Diagnostic Imaging Report ---
PROCEDURE: CT lumbar spine without contrast. TECHNIQUE: Multiple contiguous axial images were obtained through the lumbar spine without the use of intravenous contrast. Sagittal and coronal reformations were then performed. Auto Exposure Controls were utilized during the CT exam to meet ALARA standards for radiation dose reduction. INDICATION: A fall 3 weeks ago with back and right hip pain. CT axial lumbar spine performed. No reconstruction submitted Lateral yard driver tomogram showed the lumbar statures to be within normal limits and aligned anatomically unchanged from 08/30/2015. There are degenerative changes to the discs, endplates and facets throughout the lumbar spine and chronic. No paraspinal hemorrhage apparent. No acute fluid collection. No fracture identified. The partially visualized sacrum unremarkable. Degenerative changes resulting chronic moderate canal and moderate to severe biforaminal stenosis at the L5-S1 level stable from 2016. IMPRESSION: 1. No lumbar spinal fracture or gross malalignment evident. Degenerative changes and chronic lower lumbar stenosis. Dictated by: Dictated on workstation # [id number]
--- NOTE | 2023-05-20 12:29 | Diagnostic Imaging Report ---
PROCEDURE: CT pelvis without contrast. TECHNIQUE: Multiple contiguous axial images were obtained through the pelvis without the use of intravenous contrast. Sagittal and coronal reformations were performed. Auto Exposure Controls were utilized during the CT exam to meet ALARA standards for radiation dose reduction. INDICATION: Right hip pain, fall 3 weeks ago. FINDINGS: Superior-inferior pubic rami intact. Sacrococcygeal levels intact. The visible lower lumbar spine shows degenerative disease but no fracture. No symphyseal or SI joint diastases. There are arthritic changes to the bilateral hips appearing symmetric. The femoral heads, necks, trochanters and visible subtrochanteric shaft as well as the acetabulum appeared intact. No pelvic intradural or extraperitoneal hemorrhage. No loose body or joint effusion. There is a small volume free fluid in the lower colic gutters of the abdomen. No pelvic free fluid. There is aortoiliac atherosclerotic vascular calcifications. There is partially visualized fatty umbilical hernia. There is atherosclerotic vascular disease. Urinary bladder and prostate unremarkable. IMPRESSION: No hip or pelvic fracture. There are chronic degenerative changes with partially visualized free fluid in the lower abdominal colic gutters. No loculated fluid collection, subcutaneous edema, fatty umbilical hernia noted. Atherosclerotic vascular calcifications chronic. Dictated by: Dictated on workstation # [id number]
[2023-05-20] MEDS ORDERED: DRONEDARONE 400 MG TABLET PO STA (13:31)
[2023-05-20] MEDS ORDERED: POTASSIUM CHLORIDE 10 MEQ TABLET PO ONE (13:45)
[2023-05-20] MEDS ORDERED: FUROSEMIDE 40 MG TABLET PO ONE (13:45)
[2023-05-20] MEDS ORDERED: GABAPENTIN 300 MG CAPSULE PO ONE (13:45)
[2023-05-20] MEDS ORDERED: APIXABAN 5 MG TABLET PO ONE (13:45)
[2023-05-20] MEDS ORDERED: GABA300C PO (15:00)
[2023-05-20] MEDS ORDERED: NS (IVPB) 250 ML 250 ML ONE (15:11)
[2023-05-20 15:15] VITALS: BP 170/76
[2023-05-20 15:22] VITALS: BP 148/71
[2023-05-20] MEDS ORDERED: ONDANSETRON INJECTION 4 MG/2 ML (SDV) IVP ONE (16:00)
[2023-05-20] MEDS ORDERED: ACHD5005 PO (16:32)
[2023-05-20] MEDS ORDERED: oxyCODONE/ACETAMINOPHEN 5/325MG TABLET PO ONE (16:45)
[2023-05-20 17:28] VITALS: BP 146/81
[2023-05-20 17:43] VITALS: BP 146/81
== END 2023-05-20 17:43 | disposition home or self-care (01) ==
LOC: EDUNIT# 10:30 → ER 10:31
DX: M25.551 Pain in right hip (principal); M54.16 Radiculopathy, lumbar region; D64.9 Anemia, unspecified; M48.00 Spinal stenosis, site unspecified; I13.0 Hypertensive heart and chronic kidney disease with heart failure and stage 1 through stage 4 chronic kidney disease, or unspecified chronic kidney disease; E11.22 Type 2 diabetes mellitus with diabetic chronic kidney disease; N18.30 Chronic kidney disease, stage 3 unspecified; Z99.81 Dependence on supplemental oxygen
CPT/HCPCS: 36415; 71045; 72131; 72192; 80048; 83880; 85007; 85027; 86850; 86900; 86901; 86920